=== PATIENT | male | born 1970 | race Caucasian/White ===

== ENCOUNTER 2018-06-11 16:22 | Inpatient (IN) ==
[2018-06-11] MEDS ORDERED: Clindamycin 900 mg/NS Premix 900 MG/50 ML PIGGYBACK IV.SIG ONE (20:53)
--- NOTE | 2018-06-11 20:59 | ED ---
HPI General Chief complaint: Extremity Injury, Lower Stated complaint: Patient states sent from dr Greenfield Seen by Provider: 06/11/18 20:43 Source: patient Limitations: no limitations History of Present Illness HPI narrative: 48-year-old male with history of insulin dependent diabetes here for evaluation of left lower extremity pain and swelling. The patient reports that the symptoms started on and have progressively become worse. States that he was seen here and was started on bactrim. He reports that he was seen by orthopedist Dr. Manoj Swan today who advised that he present to the emergency department again for reevaluation. The patient states that last week he had an ultrasound of his left lower extremity that was negative for DVT. He does report having intermittent fevers and chills with sweats. He denies any specific injury. Pain is described as throbbing, constant, severe, worse with movements and palpation. No history of DVT or PE. Denies illicit drug use. Related Data Home Medications Medication Instructions Recorded Confirmed insulin detemir U-100 [Levemir 25 unit SUBCUT QPM 06/08/18 06/11/18 FlexTouch U-100 Insuln] insulin lispro [Humalog U-100 15 unit SUBCUT TID 06/08/18 06/11/18 Insulin] loratadine [Claritin] 10 mg PO DAILY 06/08/18 06/11/18 naproxen 500 mg PO BID 06/08/18 06/11/18 omeprazole 20 mg PO BID 06/08/18 06/11/18 pregabalin [Lyrica] 200 mg PO TID 06/08/18 06/11/18 Previous Rx's Medication Instructions Recorded methocarbamol [Robaxin] 500 mg PO Q6H PRN #20 tab 06/08/18 Allergies Allergy/AdvReac Type Severity Reaction Status Date / Time gabapentin AdvReac Burning Verified 06/08/18 13:45 Review of Systems ROS: all other systems reviewed are negative PMFSH Surgical History Surgical History H/O hand surgery (Acute) Hx of hand surgery (Acute) Social History Social History Substance History: No History of Abuse Second Hand Smoke Exposure: Yes Smoking Status: Never smoker Tobacco Type: Cigarettes How Often Do You Have a Drink Containing Alcohol: Monthly or less Hx Recent Travel: No Recent Travel in [facility] within the Last 8 Weeks: No Recent Out of Country Travel within the Last 8 Weeks: No Immunization History Tetanus Immunization: <5 Years Exam Narrative Exam Narrative: GENERAL: Well-developed, well-nourished, comfortable, no apparent distress. SKIN: Diffuse edema to the left foot, ankle, and leg. Left foot is cool to touch with the left leg being warmer with overlying warmth and erythema, no crepitus, moderate diffuse tenderness, all compartments are supple. There are a few healing scabs/wounds to bilateral upper and lower extremities. HEAD: Atraumatic. Normocephalic. EYES: Pupils equal and round. No scleral icterus. No injection or drainage. ENT: No nasal bleeding or discharge. Mucous membranes pink and moist. NECK: Trachea midline. No JVD. CARDIOVASCULAR: Regular rate and rhythm. Bilateral dorsalis pedis pulses are brisk and equal. RESPIRATORY: No accessory muscle use. Clear to auscultation. Breath sounds equal bilaterally. GASTROINTESTINAL: Abdomen soft, non-tender, nondistended. MUSCULOSKELETAL: Diffuse edema to the left foot, ankle, and leg. Left foot is cool to touch with the left leg being warmer with overlying warmth and erythema , no crepitus, moderate diffuse tenderness, all compartments are supple. NEUROLOGICAL: Awake and alert. No obvious cranial nerve deficits. Motor grossly within normal limits. Normal speech. PSYCHIATRIC: Appropriate mood and affect; insight and judgment normal. Course Initial Documented Vital Signs Temperature 98.8 F 06/11/18 16:27 Pulse Rate 110 H 06/11/18 16:27 Respiratory Rate 16 06/11/18 16:27 Blood Pressure 193/93 H 06/11/18 16:27 Pulse Oximetry 99 06/11/18 16:27 Last Documented Vital Signs Temperature 97.6 F 06/14/18 04:00 Pulse Rate 92 H 06/14/18 07:16 Respiratory Rate 18 06/14/18 04:00 Blood Pressure 144/62 H 06/14/18 04:00 Pulse Oximetry 97 06/14/18 04:00 Sign Out Sign Out Data: Patient Sign Out occurred on 06/12/18 at 00:19. Patient's care was discussed, and care was transferred from Javad Frye MD to Del Carcamo. Sign Out Comment: Follow-up with CTA runoff, left lower extremity venous duplex , and disposition. Last updated by Javad Frye MD at 06/11/18 23:22 Post-Handoff Eval: CBC showed leukocytosis of 21,000 with a left shift of 84% neutrophilia, no anemia normal platelet count INR within normal limits Lactic acid within normal limits Electrolytes are within normal limits with the exception of a random glucose 258 Normal calcium creatinine and total protein. AST mildly elevated at 49 ALT 31 normal total bilirubin of 0.7 these findings are not severe enough to account for any additional acute testing in the emergency department however patient was made aware of it and advised that he should have does followed up by his primary care. Ultrasound of left lower extremity negative for DVT Currently awaiting CTA runoff as of 23 Patient's left lower extremity has pulses palpated at dorsalis pedis however the patient does have significant difference in coolness of his left foot compared to his right foot. left Tib-fib has erythema and cellulitis-like findings without any palpable crepitus, soft compartments. Primary care is Dr. Little and based on finding will require admission Medical Decision Making MDM Narrative Medical decision making narrative: Vital signs reviewed. CBC is remarkable for leukocytosis of 20. CMP is remarkable for sodium of 130, glucose 258 At approximately 11:00 PM at the end of my shift the patient was signed out to Dr. Carcamo to follow-up with CTA runoff and left lower extremity was duplex and disposition. Medical Screen Exam Complete: Yes Emergency Medical Condition: Yes Differential Diagnosis Differential Diagnosis: Cellulitis, DVT, PVD, Myositis Lab Data Result diagrams: 06/14/18 05:16 06/13/18 03:29 Lab Results 06/11/18 06/11/18 06/11/18 Range/Units 21:00 21:00 21:00 WBC 20.8 H (4.0-11.0) th/mm3 RBC 4.78 (4.50-5.90) mil/mm3 Hgb 13.5 (13.0-17.0) gm/dL Hct 40.5 (39.0-51.0) % MCV 84.8 (80.0-100.0) fL MCH 28.2 (27.0-34.0) pg MCHC 33.2 (32.0-36.0) % RDW 16.4 (11.6-17.2) % Plt Count 404 (150-450) th/mm3 MPV 8.5 (7.0-11.0) fL Prelim Diff (Auto) Neut % (Auto) 83.5 H (16.0-70.0) % Lymph % (Auto) 6.6 L (9.0-44.0) % [place] % (Auto) 8.8 H (0.0-8.0) % Eos % (Auto) 0.6 (0.0-4.0) % Baso % (Auto) 0.5 (0.0-2.0) % Neut # (Auto) 17.4 H (1.8-7.7) th/mm3 Lymph # (Auto) 1.4 (1.0-4.8) th/mm3 [place] # (Auto) 1.8 H (0.0-0.9) th/mm3 Eos # (Auto) 0.1 (0.0-0.4) th/mm3 Baso # (Auto) 0.1 (0.0-0.2) th/mm3 WBC Differential . Seg Neuts % (Manual) (16-70) % Band Neuts % (Manual) (0-6) % Lymphocytes % (Manual) (9-44) % Monocytes % (Manual) (0-8) % Abs Neuts (Manual) (1.8-7.7) th/mm3 Differential Comment Auto diff final Platelet Estimate (Normal) Platelet Morphology (Normal) PT 9.3 L (9.8-11.6) sec INR 0.9 Ratio APTT 33.1 H (23.4-31.7) sec Sodium 130 L (136-145) meq/L Potassium 4.2 (3.5-5.1) meq/L Chloride 94 L (98-107) meq/L Carbon Dioxide 27.6 (21.0-32.0) meq/L Anion Gap 8 (5-15) meq/L BUN 13 (7-18) mg/dL Creatinine 1.22 (0.60-1.30) mg/dL Estimated GFR 64 L (>89) mL/min POC Glucose (68-110) mg/dl Random Glucose 258 H (74-106) mg/dL Hemoglobin A1c (4.3-6.0) % Lactic Acid (0.4-2.0) mmol/L Calcium 9.1 (8.5-10.1) mg/dL Phosphorus (2.5-4.9) mg/dL Magnesium (1.5-2.5) mg/dL Total Bilirubin 0.7 (0.2-1.0) mg/dL AST 49 H (15-37) U/L ALT 31 (12-78) U/L Alkaline Phosphatase 183 H (45-117) U/L Total Protein 7.7 (6.4-8.2) g/dL Albumin 2.7 L (3.4-5.0) g/dL TSH (0.358-3.740) uIU/mL Free T4 (0.76-1.46) ng/dL Vancomycin Trough 06/11/18 06/12/18 06/12/18 Range/Units 21:00 09:40 14:04 WBC (4.0-11.0) th/mm3 RBC (4.50-5.90) mil/mm3 Hgb (13.0-17.0) gm/dL Hct (39.0-51.0) % MCV (80.0-100.0) fL MCH (27.0-34.0) pg MCHC (32.0-36.0) % RDW (11.6-17.2) % Plt Count (150-450) th/mm3 MPV (7.0-11.0) fL Prelim Diff (Auto) Neut % (Auto) (16.0-70.0) % Lymph % (Auto) (9.0-44.0) % [place] % (Auto) (0.0-8.0) % Eos % (Auto) (0.0-4.0) % Baso % (Auto) (0.0-2.0) % Neut # (Auto) (1.8-7.7) th/mm3 Lymph # (Auto) (1.0-4.8) th/mm3 [place] # (Auto) (0.0-0.9) th/mm3 Eos # (Auto) (0.0-0.4) th/mm3 Baso # (Auto) (0.0-0.2) th/mm3 WBC Differential Seg Neuts % (Manual) (16-70) % Band Neuts % (Manual) (0-6) % Lymphocytes % (Manual) (9-44) % Monocytes % (Manual) (0-8) % Abs Neuts (Manual) (1.8-7.7) th/mm3 Differential Comment Platelet Estimate (Normal) Platelet Morphology (Normal) PT (9.8-11.6) sec INR Ratio APTT (23.4-31.7) sec Sodium (136-145) meq/L Potassium (3.5-5.1) meq/L Chloride (98-107) meq/L Carbon Dioxide (21.0-32.0) meq/L Anion Gap (5-15) meq/L BUN (7-18) mg/dL Creatinine (0.60-1.30) mg/dL Estimated GFR (>89) mL/min POC Glucose 314 H 381 H (68-110) mg/dl Random Glucose (74-106) mg/dL Hemoglobin A1c (4.3-6.0) % Lactic Acid 1.1 (0.4-2.0) mmol/L Calcium (8.5-10.1) mg/dL Phosphorus (2.5-4.9) mg/dL Magnesium (1.5-2.5) mg/dL Total Bilirubin (0.2-1.0) mg/dL AST (15-37) U/L ALT (12-78) U/L Alkaline Phosphatase (45-117) U/L Total Protein (6.4-8.2) g/dL Albumin (3.4-5.0) g/dL TSH (0.358-3.740) uIU/mL Free T4 (0.76-1.46) ng/dL Vancomycin Trough 06/12/18 06/12/18 06/12/18 Range/Units 16:46 17:18 17:18 WBC (4.0-11.0) th/mm3 RBC (4.50-5.90) mil/mm3 Hgb (13.0-17.0) gm/dL Hct (39.0-51.0) % MCV (80.0-100.0) fL MCH (27.0-34.0) pg MCHC (32.0-36.0) % RDW (11.6-17.2) % Plt Count (150-450) th/mm3 MPV (7.0-11.0) fL Prelim Diff (Auto) Neut % (Auto) (16.0-70.0) % Lymph % (Auto) (9.0-44.0) % [place] % (Auto) (0.0-8.0) % Eos % (Auto) (0.0-4.0) % Baso % (Auto) (0.0-2.0) % Neut # (Auto) (1.8-7.7) th/mm3 Lymph # (Auto) (1.0-4.8) th/mm3 [place] # (Auto) (0.0-0.9) th/mm3 Eos # (Auto) (0.0-0.4) th/mm3 Baso # (Auto) (0.0-0.2) th/mm3 WBC Differential Seg Neuts % (Manual) (16-70) % Band Neuts % (Manual) (0-6) % Lymphocytes % (Manual) (9-44) % Monocytes % (Manual) (0-8) % Abs Neuts (Manual) (1.8-7.7) th/mm3 Differential Comment Platelet Estimate (Normal) Platelet Morphology (Normal) PT (9.8-11.6) sec INR Ratio APTT (23.4-31.7) sec Sodium (136-145) meq/L Potassium (3.5-5.1) meq/L Chloride (98-107) meq/L Carbon Dioxide (21.0-32.0) meq/L Anion Gap (5-15) meq/L BUN (7-18) mg/dL Creatinine (0.60-1.30) mg/dL Estimated GFR (>89) mL/min POC Glucose 431 H (68-110) mg/dl Random Glucose (74-106) mg/dL Hemoglobin A1c 8.9 H (4.3-6.0) % Lactic Acid (0.4-2.0) mmol/L Calcium (8.5-10.1) mg/dL Phosphorus (2.5-4.9) mg/dL Magnesium (1.5-2.5) mg/dL Total Bilirubin (0.2-1.0) mg/dL AST (15-37) U/L ALT (12-78) U/L Alkaline Phosphatase (45-117) U/L Total Protein (6.4-8.2) g/dL Albumin (3.4-5.0) g/dL TSH (0.358-3.740) uIU/mL Free T4 1.57 H (0.76-1.46) ng/dL Vancomycin Trough 06/12/18 06/12/18 06/13/18 Range/Units 17:18 20:36 03:29 WBC 23.1 H (4.0-11.0) th/mm3 RBC 4.10 L (4.50-5.90) mil/mm3 Hgb 11.7 L (13.0-17.0) gm/dL Hct 34.3 L (39.0-51.0) % MCV 83.8 (80.0-100.0) fL MCH 28.5 (27.0-34.0) pg MCHC 34.1 (32.0-36.0) % RDW 16.5 (11.6-17.2) % Plt Count 417 (150-450) th/mm3 MPV 8.4 (7.0-11.0) fL Prelim Diff (Auto) Slide review pending Neut % (Auto) 83.7 H (16.0-70.0) % Lymph % (Auto) 5.9 L (9.0-44.0) % [place] % (Auto) 9.7 H (0.0-8.0) % Eos % (Auto) 0.1 (0.0-4.0) % Baso % (Auto) 0.6 (0.0-2.0) % Neut # (Auto) 19.3 H (1.8-7.7) th/mm3 Lymph # (Auto) 1.4 (1.0-4.8) th/mm3 [place] # (Auto) 2.2 H (0.0-0.9) th/mm3 Eos # (Auto) 0.0 (0.0-0.4) th/mm3 Baso # (Auto) 0.1 (0.0-0.2) th/mm3 WBC Differential Manual diff final Seg Neuts % (Manual) 75 H (16-70) % Band Neuts % (Manual) 5 (0-6) % Lymphocytes % (Manual) 5 L (9-44) % Monocytes % (Manual) 15 H (0-8) % Abs Neuts (Manual) 18.5 H (1.8-7.7) th/mm3 Differential Comment . Platelet Estimate Normal (Normal) Platelet Morphology Normal (Normal) PT (9.8-11.6) sec INR Ratio APTT (23.4-31.7) sec Sodium (136-145) meq/L Potassium (3.5-5.1) meq/L Chloride (98-107) meq/L Carbon Dioxide (21.0-32.0) meq/L Anion Gap (5-15) meq/L BUN (7-18) mg/dL Creatinine (0.60-1.30) mg/dL Estimated GFR (>89) mL/min POC Glucose 426 H (68-110) mg/dl Random Glucose (74-106) mg/dL Hemoglobin A1c (4.3-6.0) % Lactic Acid (0.4-2.0) mmol/L Calcium (8.5-10.1) mg/dL Phosphorus (2.5-4.9) mg/dL Magnesium (1.5-2.5) mg/dL Total Bilirubin (0.2-1.0) mg/dL AST (15-37) U/L ALT (12-78) U/L Alkaline Phosphatase (45-117) U/L Total Protein (6.4-8.2) g/dL Albumin (3.4-5.0) g/dL TSH 1.440 (0.358-3.740) uIU/mL Free T4 (0.76-1.46) ng/dL Vancomycin Trough 06/13/18 06/13/18 06/13/18 Range/Units 03:29 03:29 07:54 WBC (4.0-11.0) th/mm3 RBC (4.50-5.90) mil/mm3 Hgb (13.0-17.0) gm/dL Hct (39.0-51.0) % MCV (80.0-100.0) fL MCH (27.0-34.0) pg MCHC (32.0-36.0) % RDW (11.6-17.2) % Plt Count (150-450) th/mm3 MPV (7.0-11.0) fL Prelim Diff (Auto) Neut % (Auto) (16.0-70.0) % Lymph % (Auto) (9.0-44.0) % [place] % (Auto) (0.0-8.0) % Eos % (Auto) (0.0-4.0) % Baso % (Auto) (0.0-2.0) % Neut # (Auto) (1.8-7.7) th/mm3 Lymph # (Auto) (1.0-4.8) th/mm3 [place] # (Auto) (0.0-0.9) th/mm3 Eos # (Auto) (0.0-0.4) th/mm3 Baso # (Auto) (0.0-0.2) th/mm3 WBC Differential Seg Neuts % (Manual) (16-70) % Band Neuts % (Manual) (0-6) % Lymphocytes % (Manual) (9-44) % Monocytes % (Manual) (0-8) % Abs Neuts (Manual) (1.8-7.7) th/mm3 Differential Comment Platelet Estimate (Normal) Platelet Morphology (Normal) PT (9.8-11.6) sec INR Ratio APTT (23.4-31.7) sec Sodium 133 L (136-145) meq/L Potassium 4.1 (3.5-5.1) meq/L Chloride 98 (98-107) meq/L Carbon Dioxide 25.1 (21.0-32.0) meq/L Anion Gap 10 (5-15) meq/L BUN 20 H (7-18) mg/dL Creatinine 1.33 H (0.60-1.30) mg/dL Estimated GFR 58 L (>89) mL/min POC Glucose 166 H (68-110) mg/dl Random Glucose 230 H (74-106) mg/dL Hemoglobin A1c (4.3-6.0) % Lactic Acid (0.4-2.0) mmol/L Calcium 8.7 (8.5-10.1) mg/dL Phosphorus 3.0 (2.5-4.9) mg/dL Magnesium 1.8 (1.5-2.5) mg/dL Total Bilirubin 0.6 (0.2-1.0) mg/dL AST 26 (15-37) U/L ALT 20 (12-78) U/L Alkaline Phosphatase 155 H (45-117) U/L Total Protein 6.6 D (6.4-8.2) g/dL Albumin 2.0 L D (3.4-5.0) g/dL TSH (0.358-3.740) uIU/mL Free T4 (0.76-1.46) ng/dL Vancomycin Trough Cancelled 06/13/18 06/13/18 06/13/18 Range/Units 11:51 16:28 20:20 WBC (4.0-11.0) th/mm3 RBC (4.50-5.90) mil/mm3 Hgb (13.0-17.0) gm/dL Hct (39.0-51.0) % MCV (80.0-100.0) fL MCH (27.0-34.0) pg MCHC (32.0-36.0) % RDW (11.6-17.2) % Plt Count (150-450) th/mm3 MPV (7.0-11.0) fL Prelim Diff (Auto) Neut % (Auto) (16.0-70.0) % Lymph % (Auto) (9.0-44.0) % [place] % (Auto) (0.0-8.0) % Eos % (Auto) (0.0-4.0) % Baso % (Auto) (0.0-2.0) % Neut # (Auto) (1.8-7.7) th/mm3 Lymph # (Auto) (1.0-4.8) th/mm3 [place] # (Auto) (0.0-0.9) th/mm3 Eos # (Auto) (0.0-0.4) th/mm3 Baso # (Auto) (0.0-0.2) th/mm3 WBC Differential Seg Neuts % (Manual) (16-70) % Band Neuts % (Manual) (0-6) % Lymphocytes % (Manual) (9-44) % Monocytes % (Manual) (0-8) % Abs Neuts (Manual) (1.8-7.7) th/mm3 Differential Comment Platelet Estimate (Normal) Platelet Morphology (Normal) PT (9.8-11.6) sec INR Ratio APTT (23.4-31.7) sec Sodium (136-145) meq/L Potassium (3.5-5.1) meq/L Chloride (98-107) meq/L Carbon Dioxide (21.0-32.0) meq/L Anion Gap (5-15) meq/L BUN (7-18) mg/dL Creatinine (0.60-1.30) mg/dL Estimated GFR (>89) mL/min POC Glucose 232 H 160 H 333 H (68-110) mg/dl Random Glucose (74-106) mg/dL Hemoglobin A1c (4.3-6.0) % Lactic Acid (0.4-2.0) mmol/L Calcium (8.5-10.1) mg/dL Phosphorus (2.5-4.9) mg/dL Magnesium (1.5-2.5) mg/dL Total Bilirubin (0.2-1.0) mg/dL AST (15-37) U/L ALT (12-78) U/L Alkaline Phosphatase (45-117) U/L Total Protein (6.4-8.2) g/dL Albumin (3.4-5.0) g/dL TSH (0.358-3.740) uIU/mL Free T4 (0.76-1.46) ng/dL Vancomycin Trough 06/14/18 Range/Units 05:16 WBC 16.3 H (4.0-11.0) th/mm3 RBC 3.97 L (4.50-5.90) mil/mm3 Hgb 11.3 L (13.0-17.0) gm/dL Hct 34.0 L (39.0-51.0) % MCV 85.7 (80.0-100.0) fL MCH 28.5 (27.0-34.0) pg MCHC 33.3 (32.0-36.0) % RDW 16.4 (11.6-17.2) % Plt Count 431 (150-450) th/mm3 MPV 8.4 (7.0-11.0) fL Prelim Diff (Auto) Neut % (Auto) 80.9 H (16.0-70.0) % Lymph % (Auto) 9.1 (9.0-44.0) % [place] % (Auto) 8.7 H (0.0-8.0) % Eos % (Auto) 0.7 (0.0-4.0) % Baso % (Auto) 0.6 (0.0-2.0) % Neut # (Auto) 13.2 H (1.8-7.7) th/mm3 Lymph # (Auto) 1.5 (1.0-4.8) th/mm3 [place] # (Auto) 1.4 H (0.0-0.9) th/mm3 Eos # (Auto) 0.1 (0.0-0.4) th/mm3 Baso # (Auto) 0.1 (0.0-0.2) th/mm3 WBC Differential . Seg Neuts % (Manual) (16-70) % Band Neuts % (Manual) (0-6) % Lymphocytes % (Manual) (9-44) % Monocytes % (Manual) (0-8) % Abs Neuts (Manual) (1.8-7.7) th/mm3 Differential Comment Auto diff final Platelet Estimate (Normal) Platelet Morphology (Normal) PT (9.8-11.6) sec INR Ratio APTT (23.4-31.7) sec Sodium (136-145) meq/L Potassium (3.5-5.1) meq/L Chloride (98-107) meq/L Carbon Dioxide (21.0-32.0) meq/L Anion Gap (5-15) meq/L BUN (7-18) mg/dL Creatinine (0.60-1.30) mg/dL Estimated GFR (>89) mL/min POC Glucose (68-110) mg/dl Random Glucose (74-106) mg/dL Hemoglobin A1c (4.3-6.0) % Lactic Acid (0.4-2.0) mmol/L Calcium (8.5-10.1) mg/dL Phosphorus (2.5-4.9) mg/dL Magnesium (1.5-2.5) mg/dL Total Bilirubin (0.2-1.0) mg/dL AST (15-37) U/L ALT (12-78) U/L Alkaline Phosphatase (45-117) U/L Total Protein (6.4-8.2) g/dL Albumin (3.4-5.0) g/dL TSH (0.358-3.740) uIU/mL Free T4 (0.76-1.46) ng/dL Vancomycin Trough Imaging Data Radiologist's impression: Venous Doppler Study 06/11/18 20:53 CONCLUSION: The study is negative for lower extremity deep venous thrombosis. Aorta w/Runoff CTA 06/12/18 00:00 CONCLUSION: 1. No significant aortoiliac inflow stenosis 2. Focal disease at the trifurcation on the left. Otherwise basically normal runoff bilaterally 3. Nonspecific findings of cellulitis, myositis and fasciitis, most significantly involving the left calf Discharge Plan Physicians Team ED Provider: Del Carcamo Primary Care Provider: Jeffy Little Attending Provider: Danny Johnston Other Providers: Pavan Sharpe Rxs /Orders / Referrals /Forms Prescriptions: No Action methocarbamol [Robaxin] 500 mg tablet 500 mg PO Q6H PRN (Reason: muscle spasm) Qty: 20 RF: 0 omeprazole 20 mg Capsule,Delayed Release(Dr/Ec) 20 mg PO BID RF: 0 loratadine [Claritin] 10 mg Tablet 10 mg PO DAILY RF: 0 naproxen 500 mg Tablet 500 mg PO BID RF: 0 insulin lispro [Humalog U-100 Insulin] 100 unit/mL Cartridge 15 unit SUBCUT TID RF: 0 pregabalin [Lyrica] 200 mg Capsule 200 mg PO TID RF: 0 insulin detemir U-100 [Levemir FlexTouch U-100 Insuln] 100 unit/mL (3 mL) Insulin Pen 25 unit SUBCUT QPM RF: 0 Discharge Interventions Interventions: ED Discharge Assessment Last Done: 06/12/18 12:08 Status ED Status: Left Department Discharge Information Discharge Date/Time: 06/12/18 12:09
[2018-06-11] MEDS: Morphine Sulfate Inj 2 MG/ML Vial IV.PUSH ONE ×2 (21:06→21:10)
[2018-06-11 21:27] LABS: Baso # (Auto) 0.1 th/mm3 (0.0-0.2); Baso % (Auto) 0.5 % (0.0-2.0); Eos # (Auto) 0.1 th/mm3 (0.0-0.4); Eos % (Auto) 0.6 % (0.0-4.0); Hematocrit 40.5 % (39.0-51.0); Hemoglobin 13.5 gm/dL (13.0-17.0); Lymph # (Auto) 1.4 th/mm3 (1.0-4.8); Lymph % (Auto) 6.6 % (9.0-44.0); Mean Corpuscular HGB Conc 33.2 % (32.0-36.0); Mean Corpuscular Hemoglobin 28.2 pg (27.0-34.0); Mean Corpuscular Volume 84.8 fL (80.0-100.0); Mean Platelet Volume 8.5 fL (7.0-11.0); Mono # (Auto) 1.8 th/mm3 (0.0-0.9); Mono % (Auto) 8.8 % (0.0-8.0); Neut # (Auto) 17.4 th/mm3 (1.8-7.7); Neut % (Auto) 83.5 % (16.0-70.0); Platelet Count 404 th/mm3 (150-450); Red Blood Count 4.78 mil/mm3 (4.50-5.90); Red Cell Distribution Width 16.4 % (11.6-17.2); White Blood Count 20.8 th/mm3 (4.0-11.0)
[2018-06-11 21:37] LABS: Activated Partial Thrombo Time 33.1 sec (23.4-31.7); INR 0.9 Ratio; Prothrombin Time 9.3 sec (9.8-11.6)
[2018-06-11 21:55] LABS: Albumin 2.7 g/dL (3.4-5.0); Anion Gap 8 meq/L (5-15); Aspartate Aminotransferase 49 U/L (15-37); Blood Urea Nitrogen 13 mg/dL (7-18); Calcium 9.1 mg/dL (8.5-10.1); Carbon Dioxide 27.6 meq/L (21.0-32.0); Chloride 94 meq/L (98-107); Glomerular Filtration Rate 64 mL/min (>89); Glucose,Random 258 mg/dL (74-106); Sodium 130 meq/L (136-145)
[2018-06-11 21:57] LABS: Alanine Aminotransferase 31 U/L (12-78); Alkaline Phosphatase 183 U/L (45-117); Total Protein 7.7 g/dL (6.4-8.2)
[2018-06-11 21:58] LABS: Potassium 4.2 meq/L (3.5-5.1)
[2018-06-11] MEDS ORDERED: oxyCODONE/Acetaminophen 10/325 Tablet PO ONE (22:07)
[2018-06-11] MEDS ORDERED: Sodium Chlor 0.9% Inj 500 ML IV.SIG SCH (23:00)
--- NOTE | 2018-06-12 00:11 | US ---
EXAM DATE: 06/12/2018 12:08 AM EST AGE/SEX: 48 years / Male INDICATIONS: Increasing left leg swelling and redness. CLINICAL DATA: This is the patient's subsequent encounter. Patient reports that signs and symptoms h ave been present for 1 week and indicates a pain score of 6/10. MEDICAL/SURGICAL HISTORY: Diabetes mellitus type I. Gastroesophageal reflux disease. Gout. No ne. COMPARISON: [facility], US LEG VENOUS DOPPLER, LEFT, 06/06/2018. . TECHNIQUE: Venous ultrasound of both lower extremities was performed from the inguinal ligament to t he proximal calf. Real-time, color Doppler and spectral tracing, compression and augmentation techni ques were used. FINDINGS: Normal compression of the deep venous system from the inguinal region to the proximal calf . No echogenic clot is seen. Normal response of the venous system to augmentation and respiration. CONCLUSION: The study is negative for lower extremity deep venous thrombosis. Electronically signed by: Tawanda Workman MD 06/12/2018 12:09 AM EST
--- NOTE | 2018-06-12 02:46 | CT ---
EXAM DATE: 06/12/2018 2:19 AM EST AGE/SEX: 48 years / Male INDICATIONS: Left lower extremity pain, swelling and redness. CLINICAL DATA: This is the patient's initial encounter. Patient reports that signs and symptoms have been present for 1 week and indicates a pain score of 8/10. MEDICAL/SURGICAL HISTORY: Diabetes. Gastroesophageal reflux disease. None. RADIATION DOSE: 10.71 CTDI (mGy) COMPARISON: No prior exams available for comparison. TECHNIQUE: Volumetric scanning was performed using a multi-row detector CT scanner during bolus infu erika of 100 ml Omnipaque 350 (iohexol) nonionic water-soluble contrast as a single exam dose. The data was post processed with a variety of visualization algorithms including full volume maximum inte nsity projection, multi-planar sliding thin slab reformation, curved planar reformation, and surface rendering techniques. Using automated exposure control and adjustment of the mA and/or kV according to patient size, radiation dose was kept as low as reasonably achievable to obtain optimal diagnostic quality images. DICOM format image data is available electronically for review and comparison. FINDINGS: The abdominal aorta is notable for patchy mild atheromatous irregularity without significant stenosis . No aneurysm or dissection. Looking at the aortic visceral vessels, left gastric artery arises as a separate branch adjacent to the celiac trunk is widely patent. The superior mesenteric artery is wide ly patent with incidental note of replaced right hepatic artery. Renal arteries are widely patent inc luding an accessory right renal artery. The WENDY is patent. In the pelvis, the iliacs are widely paten t. Hypogastrics are patent bilaterally. There is mild eccentric soft plaque involving the left common femoral artery. The profundas are patent bilaterally In the legs, the superficial femoral arteries and popliteal arteries are satisfactory in appearance b ilaterally. On the left, there is some focal disease at the trifurcation however all 3 tibial vessels are subsequently patent to the foot. Basically normal three-vessel calf runoff is present on the rig ht. There is diffuse soft tissue edema involving the subcutaneous tissues of the left leg from the level of the mid thigh down. There is low density involving portions of the proximal left calf musculature and some fluid interposed between the soleus and gastrocnemius. There is a small joint effusion at th e knee. CONCLUSION: 1. No significant aortoiliac inflow stenosis 2. Focal disease at the trifurcation on the left. Otherwise basically normal runoff bilaterally 3. Nonspecific findings of cellulitis, myositis and fasciitis, most significantly involving the left calf Electronically signed by: Tawanda Workman MD 06/12/2018 2:45 AM EST
[2018-06-12] MEDS ORDERED: Vancomycin Consult Pharmacy OTHER PRN (03:52)
[2018-06-12] MEDS ORDERED: Dextrose 50% in Water 50 ML Vial IV.PUSH PRN (03:55)
[2018-06-12] MEDS ORDERED: Bisacodyl 10 MG Supp RECTAL PRN (03:56)
[2018-06-12] MEDS ORDERED: Sodium Chloride 0.9% 2 ML Flush PRN IV.FLUSH (04:10)
[2018-06-12] MEDS ORDERED: Vancomycin Inj 1,500 MG in Sodium Chlor 0.9% Inj 500 ML IV.SIG ONE (05:00)
[2018-06-12] MEDS: Sod Chloride 0.9% Inj 1,000 ML IV.CONT SCH ×2 (05:46→20:04)
[2018-06-12] MEDS: Clindamycin 900 mg/NS Premix 900 MG/50 ML PIGGYBACK IV.SIG SCH ×3 (06:28→23:36)
--- NOTE | 2018-06-12 07:20 | P.CONOP ---
[facility] Orthopedics Consult Note - [facility] Consult date: 06/12/18 Chief complaint: LLL Cellulitis r/o Myositis vs Fasciitis Narrative: Floyd is a 48-year-old male. He has a history of type 1 diabetes. He complains of left leg and calf pain and swelling for approximately 1 week. He has had fevers and chills. He has also had night sweats. Pain is worse with walking or weightbearing. He has significant tenderness of his calf. He had an ultrasound of his leg which is negative for DVT. He saw Dr. Manoj Gonzalez in clinic yesterday who referred him to the emergency room for further evaluation. He had CT of his leg yesterday which showed fluid collection in the left calf. He is currently awake alert in the emergency department. His only complaint is his left calf. Pain is improved with rest. Pain is been progressively worsening over the past week. Pain is severe and intense with motion. He denies any history of drug use. Review of Systems Patient denies weight loss, headache, visual changes, hearing loss, chest pain , palpitations, shortness of breath, nausea, vomiting, no urinary changes, diarrhea, bowel changes, neck pain, back pain, skin rashes, weakness of extremities, easy bleeding, enlarged lymph nodes, numbness of extremities, anxiety, or depression. He complains of fevers, chills, sweats, and left calf pain Patient's social history, past medical history, and family history were reviewed on chart and with patient. [facility] - History History Provided By: Patient - Medical History Medical History: Medical History (Last Reviewed 06/12/18 @ 07:17 by Pavan Sharpe MD) Diabetes GERD (gastroesophageal reflux disease) Gout - Family History Family History: Family History (Last Updated 06/12/18 @ 07:17 by Pavan Sharpe MD) Other Family history of diabetes mellitus - Social History I have reviewed the patient's Social History: Yes - Tobacco History Second Hand Smoke Exposure: Yes Smoking Status: Never smoker Tobacco Type: Cigarettes - Alcohol History How Often Do You Have a Drink Containing Alcohol: Monthly or less - Substance Use History Substance History: No History of Abuse - Travel History Recent Travel in the [place] Within the Last 8 Weeks: No Recent Travel Out of the Country Within the Last 8 Weeks: No - Immunization History Tetanus Immunization: <5 Years Medications and Allergies Active Medications: Active Medications Al Hydroxide/Mg Hydroxide (Milk Of Magnesia Liq) 30 ml PO Q12H PRN PRN Reason: Mild Constipation Bisacodyl (Dulcolax Supp) 10 mg RECTAL DAILY PRN PRN Reason: SEVERE CONSITIPATION Dextrose (D50w Vial) 50 ml IV.PUSH UNSCH PRN PRN Reason: PER HYPOGLYCEMIA PROTOCOL Glucagon (Glucagon Inj) 1 mg OTHER PRN PRN PRN Reason: for Hypoglycemia Protocol Clindamycin/Sodium Chloride (Cleocin 900 Mg/Ns Premix) 900 mg in 50 mls @ 100 mls/hr IV.SIG Q8H [facility] Last Infusion: 06/12/18 06:35 Dose: Infused Cefepime HCl 2,000 mg/ Sodium (Chloride) 100 mls @ 200 mls/hr IV.SIG Q8H [facility] Last Infusion: 06/12/18 06:17 Dose: Infused Sodium Chloride (Ns Inj) 1,000 mls @ 100 mls/hr IV.CONT .Q10H [facility] Last Admin: 06/12/18 05:46 Dose: 100 mls/hr Insulin Aspart (Novolog Insulin Correctional Sugar Inj) 0 unit SQ ACHS [facility]; Protocol Lactulose (Lactulose Liq) 30 ml PO DAILY PRN PRN Reason: SEVERE CONSITIPATION Pharmacy Profile Note (Vancomycin Consult Pharmacy) 1 each OTHER UNSCH PRN PRN Reason: Pharmacy to dose Sennosides (Senokot) 17.2 mg PO Q12H PRN PRN Reason: Moderate Constipation Sodium Chloride (Ns Flush) 2 ml IV.FLUSH BID [facility] Sodium Chloride (Ns Flush) 2 ml IV.FLUSH PRN PRN PRN Reason: FLUSH AFTER USING IV ACCESS Allergies Allergy/AdvReac Type Severity Reaction Status Date / Time gabapentin AdvReac Burning Verified 06/08/18 13:45 Home Medications Medication Instructions Recorded Confirmed Type insulin detemir U-100 [Levemir 25 unit SUBCUT QPM 06/08/18 06/11/18 History FlexTouch U-100 Insuln] insulin lispro [Humalog U-100 15 unit SUBCUT TID 06/08/18 06/11/18 History Insulin] loratadine [Claritin] 10 mg PO DAILY 06/08/18 06/11/18 History naproxen 500 mg PO BID 06/08/18 06/11/18 History omeprazole 20 mg PO BID 06/08/18 06/11/18 History pregabalin [Lyrica] 200 mg PO TID 06/08/18 06/11/18 History Exam Vital signs: Vital Signs 06/11/18 16:27 06/11/18 20:56 06/11/18 23:09 Temperature 98.8 F 98.6 F Pulse Rate 110 H 88 Respiratory Rate 16 18 20 Blood Pressure 193/93 H 179/88 H Pulse Oximetry 99 99 06/12/18 00:00 06/12/18 04:00 06/12/18 06:32 Temperature Pulse Rate 87 88 96 H Respiratory Rate 20 20 20 Blood Pressure 176/80 H 132/75 143/67 H Pulse Oximetry 98 98 96 Intake & Output 06/11/18 06/12/18 06/12/18 18:59 06:59 18:59 Intake Total 700 / 700 Output Total 300 / 300 Balance 400 / 400 Weight 95.254 kg Intake: IV 700 / 700 Maxipime Inj 2,000 MG In NS Inj 100 / 100 100 ML @ 200 mls/hr IV.SIG Q8H [facility] Rx#:[id number] Cleocin 900 mg/NS Premix 900 mg 100 / 100 In 50 ml @ 100 mls/hr IV.SIG Q8H [facility] Rx#:[id number] NS Inj 500 ML @ 1000 mls/hr IV. 500 / 500 SIG BOLUS [facility] Rx#:[id number] Output: Urine 300 / 300 Narrative: Floyd is a 48-year-old male. General: Awake and alert. No acute distress. Appears well-developed well- nourished Head: Normocephalic, atraumatic pupils are equal Neck: Soft, nontender, trachea midline Abdomen: Soft, nondistended Examination of right arm reveals no pain or deformity with shoulder, elbow, or wrist motion. Skin is intact. Radial pulse is palpable. Normal capillary refill in fingers. Sensation is intact in radial, ulnar, and median nerve distributions. Electrotype Servicer strength is +5. No lymphadenopathy noted. Examination of left arm reveals no pain or deformity with shoulder, elbow, or wrist motion. Skin is intact. Radial pulse is palpable. Normal capillary refill in fingers. Sensation is intact in radial, ulnar, and median nerve distributions. Electrotype Servicer strength is +5. No lymphadenopathy noted. Examination of left lower extremity reveals no pain or deformity with hip motion. He has mild calf pain with knee or ankle motion. He is very tender to palpation over the left calf. There is some cellulitis over the calf. There is swelling of the calf. Skin is intact. Sensation is intact in left foot. Dorsalis pedis pulse is palpable. Normal capillary refill and feet. Thigh and calf compartments are soft. No lymphadenopathy noted. Examination of right lower extremity reveals no pain or deformity with hip, knee , or ankle motion. Skin is intact. Sensation is intact in right foot. Dorsalis pedis pulse is palpable. Normal capillary refill and feet. Thigh and calf compartments are soft. No lymphadenopathy noted. +5 strength of ankle dorsiflexion and plantarflexion. Results - Labs Result Diagrams: 06/11/18 21:00 06/11/18 21:00 Labs: Laboratory Results - last 24 hr 06/11/18 06/11/18 06/11/18 21:00 21:00 21:00 WBC 20.8 H RBC 4.78 Hgb 13.5 Hct 40.5 MCV 84.8 MCH 28.2 MCHC 33.2 RDW 16.4 Plt Count 404 MPV 8.5 Neut % (Auto) 83.5 H Lymph % (Auto) 6.6 L [place] % (Auto) 8.8 H Eos % (Auto) 0.6 Baso % (Auto) 0.5 Neut # (Auto) 17.4 H Lymph # (Auto) 1.4 [place] # (Auto) 1.8 H Eos # (Auto) 0.1 Baso # (Auto) 0.1 WBC Differential . Differential Comment Auto diff final PT 9.3 L INR 0.9 APTT 33.1 H Sodium 130 L Potassium 4.2 Chloride 94 L Carbon Dioxide 27.6 Anion Gap 8 BUN 13 Creatinine 1.22 Estimated GFR 64 L Random Glucose 258 H Lactic Acid Calcium 9.1 Total Bilirubin 0.7 AST 49 H ALT 31 Alkaline Phosphatase 183 H Total Protein 7.7 Albumin 2.7 L 06/11/18 21:00 WBC RBC Hgb Hct MCV MCH MCHC RDW Plt Count MPV Neut % (Auto) Lymph % (Auto) [place] % (Auto) Eos % (Auto) Baso % (Auto) Neut # (Auto) Lymph # (Auto) [place] # (Auto) Eos # (Auto) Baso # (Auto) WBC Differential Differential Comment PT INR APTT Sodium Potassium Chloride Carbon Dioxide Anion Gap BUN Creatinine Estimated GFR Random Glucose Lactic Acid 1.1 Calcium Total Bilirubin AST ALT Alkaline Phosphatase Total Protein Albumin - Diagnostic results Imaging: Impressions Venous Doppler Study 06/11/18 20:53 CONCLUSION: The study is negative for lower extremity deep venous thrombosis. Aorta w/Runoff CTA 06/12/18 00:00 CONCLUSION: 1. No significant aortoiliac inflow stenosis 2. Focal disease at the trifurcation on the left. Otherwise basically normal runoff bilaterally 3. Nonspecific findings of cellulitis, myositis and fasciitis, most significantly involving the left calf Assessment and Plan - Assessment and Plan Floyd appears to have an abscess of his left calf. CT scan was reviewed. There appears to be fluid between the gastroc muscle and soleus muscle of the left calf. Given his history of fevers and chills I would recommend surgical irrigation and debridement of left calf. Cultures will be obtained. The risk and benefits of surgery were discussed in depth with patient. All questions were answered. I will plan on surgery today. The risk and benefits of surgery were discussed in depth with patient. The risk of surgery include bleeding, infection, injuries to arteries, nerves, or blood vessels, infection, wound complications, and need for further surgery. I also discussed medical complications including blood clots, pneumonia, stroke, heart attack, and . Informed consent was obtained and all questions were answered. N.p.o.--plan on surgery this afternoon (may have clear liquids until 10 AM) Physical therapy consult--weight-bear as tolerated Follow-up with Dr. Sharpe in 2 weeks [facility] A mid-level provider in my office (nurse practitioner or physician retail store assistant) may see this patient on follow-up visits and continue to implement the objectives of this plan including: Starting or adjusting medications, injections , cast application, orthotics, brace application, physical therapy, radiological studies (including x-ray, MRI, CT, ultrasound, bone scan), vascular studies, neurologic studies, specialist consultation, and proceeding with surgical management, as appropriate.
[2018-06-12] MEDS ORDERED: Sodium Chloride 0.9% 2 ML Flush BID IV.FLUSH SCH (09:00)
[2018-06-12] MEDS ORDERED: Morphine Sulfate Inj 2 MG/ML Vial IV.PUSH PRN (09:02)
[2018-06-12] MEDS ORDERED: Acetaminophen 325 MG Tablet PO PRN (09:02)
[2018-06-12] MEDS: Insulin NovoLOG Aspart Correctional Sugar Inj SQ SCH ×4 (10:17→20:44)
--- NOTE | 2018-06-12 11:16 | P.HPIM ---
History of Present Illness Service: [facility] Primary Care Physician: Jeffy Little MD Chief Complaint: Left leg pain and swelling History of Present Illness: Patient is a 48-year-old male with a past medical history of insulin- dependent diabetes who came into the emergency department for evaluation of a left lower extremity pain and swelling. Patient reports that the symptoms started on August 06, 2018 have progressively worsened. States that he was seen here and was started on Bactrim. He is dates that he was seen by his orthopedic surgeon Dr. Manoj Winkler yesterday who advised patient come to emergency department for reevaluation. The patient states that last week he had an ultrasound of the left lower extremity negative for DVT. Does report having intermittent fevers and chills with sweats. Denies any specific injury. Patient describes the pain as throbbing and constant and severe worse with movements and bowel patient denies any history of DVT or pulmonary embolism denies any history. Past medical history is significant for diabetes mellitus as well as seasonal allergies and GERD and neuropathy and history of gout Patient is scheduled to go for surgery regarding the left lower extremity abscess in the calf region Inpatient Certification: I certify that the inpatient services were ordered in accordance with Medicare regulations governing the order. This includes certification that hospital inpatient services are reasonable and necessary and in the case of services not specified as inpatient-only under 42 CFR 419.22(n), that they are appropriately provided as inpatient services in accordance to with the 2-midnight benchmark under 43 CFR 412.3(e) Estimated Total Length of Stay (Days): 3 Plans for Post Hospital Care: Not yet determined Review of Systems All other systems reviewed negative except as stated in HPI [facility] - History History Provided By: Patient - Medical History Medical History: Medical History (Last Reviewed 06/12/18 @ 11:05 by Nacho Bhat DO) Diabetes GERD (gastroesophageal reflux disease) Gout - Surgical History Surgical History: Surgical History (Last Updated 06/12/18 @ 11:05 by Nacho Bhat DO) H/O hand surgery Hx of hand surgery - Family History Family History: Family History (Last Reviewed 06/12/18 @ 11:05 by Nacho Bhat DO) Other Family history of diabetes mellitus - Social History I have reviewed the patient's Social History: Yes - Tobacco History Second Hand Smoke Exposure: Yes Tobacco Use In Past 30 Days: Yes Smoking Status: Never smoker Tobacco Type: Cigarettes - Alcohol History How Often Do You Have a Drink Containing Alcohol: Monthly or less - Substance Use History Substance History: No History of Abuse - Travel History History of Recent Travel: No Recent Travel in the [place] Within the Last 8 Weeks: No Recent Travel Out of the Country Within the Last 8 Weeks: No - Immunization History Tetanus Immunization: <5 Years Medications and Allergies Active Medications: Active Medications Acetaminophen (Tylenol) 650 mg PO Q6H PRN PRN Reason: PAIN SCALE 1 TO 10 Al Hydroxide/Mg Hydroxide (Milk Of Magnesia Liq) 30 ml PO Q12H PRN PRN Reason: Mild Constipation Bisacodyl (Dulcolax Supp) 10 mg RECTAL DAILY PRN PRN Reason: SEVERE CONSITIPATION Dextrose (D50w Vial) 50 ml IV.PUSH UNSCH PRN PRN Reason: PER HYPOGLYCEMIA PROTOCOL Glucagon (Glucagon Inj) 1 mg OTHER PRN PRN PRN Reason: for Hypoglycemia Protocol Clindamycin/Sodium Chloride (Cleocin 900 Mg/Ns Premix) 900 mg in 50 mls @ 100 mls/hr IV.SIG Q8H [facility] Last Infusion: 06/12/18 06:35 Dose: Infused Cefepime HCl 2,000 mg/ Sodium (Chloride) 100 mls @ 200 mls/hr IV.SIG Q8H [facility] Last Infusion: 06/12/18 06:17 Dose: Infused Sodium Chloride (Ns Inj) 1,000 mls @ 100 mls/hr IV.CONT .Q10H [facility] Last Admin: 06/12/18 05:46 Dose: 100 mls/hr Vancomycin HCl 1,500 mg/ (Sodium Chloride) 515 mls @ 250 mls/hr IV.SIG Q12H [facility] Insulin Aspart (Novolog Insulin Correctional Sugar Inj) 0 unit SQ ACHS [facility]; Protocol Last Admin: 06/12/18 10:17 Dose: Not Given Lactulose (Lactulose Liq) 30 ml PO DAILY PRN PRN Reason: SEVERE CONSITIPATION Miscellaneous Information ([facility] Ordered Lab Info) 0 each OTHER ONCE ONE Stop: 06/13/18 17:46 Morphine Sulfate (Morphine Inj) 2 mg IV.PUSH Q4H PRN PRN Reason: BREAKTHROUGH PAIN Pharmacy Profile Note (Vancomycin Consult Pharmacy) 1 each OTHER UNSCH PRN PRN Reason: Pharmacy to dose Sennosides (Senokot) 17.2 mg PO Q12H PRN PRN Reason: Moderate Constipation Sodium Chloride (Ns Flush) 2 ml IV.FLUSH BID [facility] Last Admin: 06/12/18 09:32 Dose: Not Given Sodium Chloride (Ns Flush) 2 ml IV.FLUSH PRN PRN PRN Reason: FLUSH AFTER USING IV ACCESS Allergies Allergy/AdvReac Type Severity Reaction Status Date / Time gabapentin AdvReac Burning Verified 06/08/18 13:45 Home Medications Medication Instructions Recorded Confirmed Type insulin detemir U-100 [Levemir 25 unit SUBCUT QPM 06/08/18 06/11/18 History FlexTouch U-100 Insuln] insulin lispro [Humalog U-100 15 unit SUBCUT TID 06/08/18 06/11/18 History Insulin] loratadine [Claritin] 10 mg PO DAILY 06/08/18 06/11/18 History naproxen 500 mg PO BID 06/08/18 06/11/18 History omeprazole 20 mg PO BID 06/08/18 06/11/18 History pregabalin [Lyrica] 200 mg PO TID 06/08/18 06/11/18 History Exam Vital signs: Vital Signs 06/11/18 16:27 06/11/18 20:56 06/11/18 23:09 Temperature 98.8 F 98.6 F Pulse Rate 110 H 88 Respiratory Rate 16 18 20 Blood Pressure 193/93 H 179/88 H Pulse Oximetry 99 99 06/12/18 00:00 06/12/18 04:00 06/12/18 06:32 Temperature Pulse Rate 87 88 96 H Respiratory Rate 20 20 20 Blood Pressure 176/80 H 132/75 143/67 H Pulse Oximetry 98 98 96 Intake & Output 06/11/18 06/12/18 06/12/18 18:59 06:59 18:59 Intake Total 700 / 700 765 / 765 Output Total 300 / 300 Balance 400 / 400 765 / 765 Weight 95.254 kg Intake: IV 700 / 700 765 / 765 Maxipime Inj 2,000 MG In NS Inj 100 / 100 100 ML @ 200 mls/hr IV.SIG Q8H [facility] Rx#:[id number] Cleocin 900 mg/NS Premix 900 mg 100 / 100 In 50 ml @ 100 mls/hr IV.SIG Q8H [facility] Rx#:[id number] NS Inj 500 ML @ 1000 mls/hr IV. 500 / 500 SIG BOLUS [facility] Rx#:[id number] Vancomycin Inj 1,500 MG In NS 765 / 765 Inj 500 ML @ 250 mls/hr IV.SIG ONCE ONE Rx#:[id number] Output: Urine 300 / 300 Narrative: Exam Narrative: GENERAL: Well-developed, well-nourished, comfortable, in mild to moderate distress. SKIN: Diffuse edema to the left foot, ankle, and leg. Left foot is cool to touch with the left leg being warmer with overlying warmth and erythema, no crepitus, moderate diffuse tenderness, all compartments are supple. There are a few healing scabs/wounds to bilateral upper and lower extremities. HEAD: Atraumatic. Normocephalic. EYES: Pupils equal and round. No scleral icterus. No injection or drainage. EOMI ENT: No nasal bleeding or discharge. Mucous membranes pink and moist. Tongue is midline NECK: Trachea midline. No JVD. Supple CARDIOVASCULAR: Regular rate and rhythm. Bilateral dorsalis pedis pulses are brisk and equal. S1-S2 no S3 or S4 RESPIRATORY: No accessory muscle use. Clear to auscultation. Breath sounds equal bilaterally. No rhonchi wheezes rales GASTROINTESTINAL: Abdomen soft, non-tender, nondistended. MUSCULOSKELETAL: Diffuse edema to the left foot, ankle, and leg. Left foot is cool to touch with the left leg being warmer with overlying warmth and erythema , no crepitus, moderate diffuse tenderness, all compartments are supple. Tenderness on any touch of the left lower extremity especially the calf region NEUROLOGICAL: Awake and alert. No obvious cranial nerve deficits. Motor grossly within normal limits. Normal speech. PSYCHIATRIC: INAppropriate mood and affect; insight and judgment ABnormal. Results - Labs CBC & Chem 7: 06/11/18 21:00 06/11/18 21:00 Labs: Short CBC 06/11/18 Range/Units 21:00 WBC 20.8 H (4.0-11.0) th/mm3 Hgb 13.5 (13.0-17.0) gm/dL Hct 40.5 (39.0-51.0) % Plt Count 404 (150-450) th/mm3 [facility] 06/11/18 21:00 Sodium 130 L Potassium 4.2 Chloride 94 L Carbon Dioxide 27.6 BUN 13 Creatinine 1.22 Calcium 9.1 Liver Function 06/11/18 Range/Units 21:00 Total Bilirubin 0.7 (0.2-1.0) mg/dL AST 49 H (15-37) U/L ALT 31 (12-78) U/L Alkaline Phosphatase 183 H (45-117) U/L Albumin 2.7 L (3.4-5.0) g/dL - Imaging Impressions Venous Doppler Study 06/11/18 20:53 CONCLUSION: The study is negative for lower extremity deep venous thrombosis. Aorta w/Runoff CTA 06/12/18 00:00 CONCLUSION: 1. No significant aortoiliac inflow stenosis 2. Focal disease at the trifurcation on the left. Otherwise basically normal runoff bilaterally 3. Nonspecific findings of cellulitis, myositis and fasciitis, most significantly involving the left calf Caprini VTE Risk Assessment Caprini VTE Risk Assessment: Moderate/High Risk (score >= 2) Caprini Risk Assessment Model: Point Value = 1 Point Value = 2 Point Value = 3 Point Value = 5 Age 41-60 Minor surgery BMI > 25 kg/m2 Swollen legs Varicose veins or History of unexplained or recurrent spontaneous Oral contraceptives or hormone replacement Sepsis (< 1 month) Serious lung disease, including pneumonia (< 1 month) Abnormal pulmonary function Acute myocardial infarction Congestive heart failure (< 1 month) History of inflammatory bowel disease Medical patient at bed rest Age 61-74 Arthroscopic surgery Major open surgery (> 45 min) Laparoscopic surgery (> 45 min) Malignancy Confined to bed (> 72 hours) Immobilizing plaster cast Central venous access Age >= 75 History of VTE Family history of VTE Factor V Leiden Prothrombin [id number] Lupus anticoagulant Anticardiolipin antibodies Elevated serum homocysteine Heparin-induced thrombocytopenia Other congenital or acquired thrombophilia Stroke (< 1 month) Elective arthroplasty Hip, pelvis, or leg fracture Acute spinal cord injury (< 1 month) Prophylaxis Regimen: Total Risk Factor Score Risk Level Prophylaxis Regimen 0-1 Low Early ambulation 2 Moderate Order ONE of the following: *Sequential Compression Device (SCD) *Heparin 5000 units SQ BID 3-4 Higher Order ONE of the following medications: *Heparin 5000 units SQ TID *Enoxaparin/Lovenox 40 mg SQ daily (WT < 150 kg, CrCl > 30 mL/min) *Enoxaparin/Lovenox 30 mg SQ daily (WT < 150 kg, CrCl > 10-29 mL/min) *Enoxaparin/Lovenox 30 mg SQ BID (WT < 150 kg, CrCl > 30 mL/min) AND/OR *Sequential Compression Device (SCD) 5 or more Highest Order ONE of the following medications: *Heparin 5000 units SQ TID (Preferred with Epidurals) *Enoxaparin/Lovenox 40 mg SQ daily (WT < 150 kg, CrCl > 30 mL/min) *Enoxaparin/Lovenox 30 mg SQ daily (WT < 150 kg, CrCl > 10-29 mL/min) *Enoxaparin/Lovenox 30 mg SQ BID (WT < 150 kg, CrCl > 30 mL/min) AND *Sequential Compression Device (SCD) Assessment and Plan - Plan Left lower extremity cellulitis rule out myositis versus fasciitis of left calf Abscess left calf-fluid between the gastric muscle and the soleus muscle on the left calf Fevers per patient has an outpatient- continue on antibiotics -To go for surgery today with Dr. Lagunas pain control for calf tenderness -Currently on Cleocin and cefepime and vancomycin Hyponatremia-monitor daily labs Renal insufficiency monitor daily labs continue fluids Leukocytosis currently on Cleocin and vancomycin -To go for surgery later today with Dr. Lagunas Diabetes mellitus -Sliding scale coverage Accu-Cheks before meals and at bedtime -Check a hemoglobin A1c -Resume home medications once able to eat currently is n.p.o. GERD resume PPI Neuropathy resume home medications continue on Lyrica Gout pain control as needed Seasonal allergies continue on Claritin DVT prophylaxis on hold until after surgery A.m. labs Pain control Code Status: Full code Discussed Condition With: RN and patient Discharge Planning: Once cleared by orthopedic surgery and the areas drained and improvement Will need cultures of the wound
[2018-06-12] MEDS ORDERED: ceFAZolin 2 GM Premix Inj 0 GM/0 ML PIGGYBACK IV.SIG ONE (12:41)
[2018-06-12] MEDS ORDERED: Lidocaine PF 1% Inj 5 ML Syringe OTHER ONE (12:45)
[2018-06-12] MEDS ORDERED: Post-op Orders (for Pharmacy) OTHER STA (13:33)
[2018-06-12] MEDS ORDERED: Morphine Inj 4 MG/ML Vial IV.PUSH PRN (13:33)
--- NOTE | 2018-06-12 13:39 | P.OP ---
- Preoperative Diagnosis (1) Abscess of left lower extremity Date of procedure: 06/12/18 Procedure: Left calf abscess irrigation and debridement Anesthesia: GETA Surgeon: Pavan Sharpe MD Sales Coach: Fabricio Willett PA-C The surgical procedure was assisted by my physician licensed occupational therapy assistant. My P.A. presence was necessary throughout this case for the manipulation and positioning of the surgical extremity. My P.A. was assisting me throughout the duration of this procedure. The skill set of a physician licensed occupational therapy assistant was medically necessary to complete this procedure. During the surgical case the surgical clinical reviewer was working at the back table and the physician licensed occupational therapy assistant was directly assisting me. Operation and Findings: Patient was seen and evaluated preoperatively. Patient was found to have infection of the left lower extremity. CT scan revealed a fluid collection deep to the gastrocnemius muscle. He has had a one-week history of increasing pain and swelling. Swelling and erythema were noted. Informed consent was obtained after detailed discussion of risk and benefits of surgery. Operative site was marked. Patient was brought to the operating room. IV sedation and GETA were administered by anesthesiologist. Operative leg was prepped with alcohol followed by Hibiclens and draped in usual sterile fashion. Timeout procedure was performed. Procedure began with a 3 inch incision over the medial calf. Subcutaneous tissue dissected with Bovie. The interval between the gastrocnemius and soleus muscles was identified. This muscle interval was opened. A large volume of purulent fluid was found within the knee. Specimen was obtained for cultures and sensitivities. Loculations were manually debrided. An excisional debridement was performed. After excisional debridement was complete, the wound was thoroughly irrigated with sterile saline. At this point the wound was clean. Subcutaneous tissues closed with 3-0 PDS and skin was closed with dorene. A REGINALD drain was placed into the wound. Sterile dressings were applied. Patient was awakened and transferred to recovery in stable condition. Needle and sponge counts were correct
[2018-06-12] MEDS ORDERED: *morphine SULFATE 10 MG/ML PERIprocedure ONLY ONE (14:08)
[2018-06-12] MEDS ORDERED: *Meperidine Inj 25 MG/ML Vial PERIprocedural Use ONLY ONE (14:08)
[2018-06-12] MEDS ORDERED: fentaNYL Citrate Inj 100 MCG/2 ML Ampul ONE (14:13)
[2018-06-12] MEDS ORDERED: Methocarbamol 500 MG Tablet PO PRN (16:47)
[2018-06-12] MEDS: Vancomycin Inj 1,500 MG in Sodium Chlor 0.9% Inj 500 ML IV.SIG SCH (20:05)
[2018-06-12 20:14] LABS: Hemoglobin A1c 8.9 % (4.3-6.0)
[2018-06-12] MEDS: Senna/Docusate Sodium 8.6/50 MG Tablet PO SCH (20:37)
[2018-06-12] MEDS: Pantoprazole Sodium 20 MG DR Tablet PO SCH (20:37)
[2018-06-12] MEDS: Insulin Detemir Inj 1,000 UNIT/10 ML Vial SQ SCH (20:45)
[2018-06-13] MEDS: Sod Chloride 0.9% Inj 1,000 ML IV.CONT SCH ×2 (01:38→11:39)
[2018-06-13 05:10] LABS: Baso # (Auto) 0.1 th/mm3 (0.0-0.2); Baso % (Auto) 0.6 % (0.0-2.0); Eos % (Auto) 0.1 % (0.0-4.0); Hematocrit 34.3 % (39.0-51.0); Hemoglobin 11.7 gm/dL (13.0-17.0); Lymph # (Auto) 1.4 th/mm3 (1.0-4.8); Lymph % (Auto) 5.9 % (9.0-44.0); Mean Corpuscular HGB Conc 34.1 % (32.0-36.0); Mean Corpuscular Hemoglobin 28.5 pg (27.0-34.0); Mean Corpuscular Volume 83.8 fL (80.0-100.0); Mean Platelet Volume 8.4 fL (7.0-11.0); Mono # (Auto) 2.2 th/mm3 (0.0-0.9); Mono % (Auto) 9.7 % (0.0-8.0); Neut # (Auto) 19.3 th/mm3 (1.8-7.7); Neut % (Auto) 83.7 % (16.0-70.0); Platelet Count 417 th/mm3 (150-450); Red Cell Distribution Width 16.5 % (11.6-17.2); White Blood Count 23.1 th/mm3 (4.0-11.0)
[2018-06-13] MEDS: Clindamycin 900 mg/NS Premix 900 MG/50 ML PIGGYBACK IV.SIG SCH ×3 (05:38→22:29)
[2018-06-13 05:43] LABS: Alanine Aminotransferase 20 U/L (12-78); Alkaline Phosphatase 155 U/L (45-117); Anion Gap 10 meq/L (5-15); Aspartate Aminotransferase 26 U/L (15-37); Blood Urea Nitrogen 20 mg/dL (7-18); Calcium 8.7 mg/dL (8.5-10.1); Carbon Dioxide 25.1 meq/L (21.0-32.0); Chloride 98 meq/L (98-107); Glomerular Filtration Rate 58 mL/min (>89); Glucose,Random 230 mg/dL (74-106); Potassium 4.1 meq/L (3.5-5.1); Sodium 133 meq/L (136-145); Total Protein 6.6 g/dL (6.4-8.2)
[2018-06-13] MEDS: Vancomycin Inj 1,500 MG in Sodium Chlor 0.9% Inj 500 ML IV.SIG SCH ×2 (05:50→17:41)
[2018-06-13 07:24] LABS: Lymphocytes 5 % (9-44); Monocytes 15 % (0-8); Platelet Estimate Normal (Normal); Platelet Morphology Normal (Normal)
[2018-06-13] MEDS: Pantoprazole Sodium 20 MG DR Tablet PO SCH ×2 (07:59→21:14)
[2018-06-13] MEDS: Loratadine 10 MG Tablet PO SCH (07:59)
[2018-06-13] MEDS: Senna/Docusate Sodium 8.6/50 MG Tablet PO SCH ×2 (08:00→21:14)
[2018-06-13] MEDS: Insulin NovoLOG Aspart Correctional Sugar Inj SQ SCH ×4 (08:00→21:16)
--- NOTE | 2018-06-13 17:39 | P.PNIM ---
Subjective Interval history: Patient complains of on and off pain of the left lower extremity. He does not have any other complaints this afternoon. Physical Exam Vital signs: Vital Signs 06/12/18 20:00 06/13/18 00:00 06/13/18 04:00 Temperature 98.2 F 98.3 F 98.2 F Pulse Rate 105 H 94 H 96 H Respiratory Rate 18 18 18 Blood Pressure 136/76 126/70 145/74 H Pulse Oximetry 98 95 98 06/13/18 07:00 06/13/18 07:43 06/13/18 08:00 Temperature 98.1 F Pulse Rate 87 89 92 H Respiratory Rate 18 Blood Pressure 139/80 Pulse Oximetry 97 97 06/13/18 09:00 06/13/18 10:00 06/13/18 11:00 Temperature Pulse Rate 96 H 90 90 Respiratory Rate Blood Pressure Pulse Oximetry 06/13/18 12:00 06/13/18 13:00 06/13/18 14:00 Temperature 98.0 F Pulse Rate 88 92 H 88 Respiratory Rate 18 Blood Pressure 151/80 H Pulse Oximetry 06/13/18 15:00 06/13/18 15:13 06/13/18 16:00 Temperature 98.0 F Pulse Rate 91 H 86 94 H Respiratory Rate 18 Blood Pressure 151/83 H Pulse Oximetry 100 Intake & Output 06/12/18 06/13/18 06/13/18 18:59 06:59 18:59 Intake Total 1475 / 1475 1355 / 1355 2175 / 2175 Output Total 55 / 55 1900 / 1900 Balance 1420 / 1420 -545 / -545 2175 / 2175 Weight 92.9 kg Intake: IV 865 / 865 875 / 875 2175 / 2175 LR 1000 mL Inj 1,000 ML @ 60 500 / 500 mls/hr IV.CONT .[id number] [facility] Rx# :[id number] NS Inj 1,000 ML @ 100 mls/hr IV 0 / 0 1000 / 1000 .CONT .Q10H [facility] Rx#:[id number] Maxipime Inj 2,000 MG In NS Inj 100 / 100 200 / 200 100 / 100 100 ML @ 200 mls/hr IV.SIG Q8H [facility] Rx#:[id number] Cleocin 900 mg/NS Premix 900 mg 150 / 150 50 / 50 In 50 ml @ 100 mls/hr IV.SIG Q8H [facility] Rx#:[id number] Vancomycin Inj 1,500 MG In NS 765 / 765 525 / 525 525 / 525 Inj 500 ML @ 250 mls/hr IV.SIG Q12H [facility] Rx#:[id number] Oral 60 / 60 480 / 480 Anesthesia Amount 550 / 550 Output: Urine 0 / 0 1200 / 1200 Emesis 50 / 50 700 / 700 Estimated Blood Loss 5 / 5 Wound Drainage 0 / 0 # 1 Left Calf REGINALD Drain 0 / 0 Other: Date of Last Bowel Movement 06/11/18 Narrative: General patient in no acute distress, pain well controlled with pain medications. HEENT extraocular movements are intact, clear oropharyngeal mucosa, no JVD Cardiovascular S1-S2 audible, RRR, no murmurs rubs or gallops Respiratory clear to auscultation bilaterally Abdomen soft, nontender, nondistended, normal bowel sounds Extremities left lower extremity with drain in place near the calf, bandage covering the left lower extremity from the left gonzalez down to the foot. Neuro there are no neurological deficits. Sensation is intact bilaterally Results - Labs CBC & Chem 7: 06/13/18 03:29 06/13/18 03:29 Laboratory Results - last 24 hr 06/12/18 06/12/18 06/12/18 17:18 17:18 17:18 WBC RBC Hgb Hct MCV MCH MCHC RDW Plt Count MPV Prelim Diff (Auto) Neut % (Auto) Lymph % (Auto) [place] % (Auto) Eos % (Auto) Baso % (Auto) Neut # (Auto) Lymph # (Auto) [place] # (Auto) Eos # (Auto) Baso # (Auto) WBC Differential Seg Neuts % (Manual) Band Neuts % (Manual) Lymphocytes % (Manual) Monocytes % (Manual) Abs Neuts (Manual) Differential Comment Platelet Estimate Platelet Morphology Sodium Potassium Chloride Carbon Dioxide Anion Gap BUN Creatinine Estimated GFR POC Glucose Random Glucose Hemoglobin A1c 8.9 H Calcium Total Bilirubin AST ALT Alkaline Phosphatase Total Protein Albumin TSH 1.440 Free T4 1.57 H 06/12/18 06/13/18 06/13/18 20:36 03:29 03:29 WBC 23.1 H RBC 4.10 L Hgb 11.7 L Hct 34.3 L MCV 83.8 MCH 28.5 MCHC 34.1 RDW 16.5 Plt Count 417 MPV 8.4 Prelim Diff (Auto) Slide review pending Neut % (Auto) 83.7 H Lymph % (Auto) 5.9 L [place] % (Auto) 9.7 H Eos % (Auto) 0.1 Baso % (Auto) 0.6 Neut # (Auto) 19.3 H Lymph # (Auto) 1.4 [place] # (Auto) 2.2 H Eos # (Auto) 0.0 Baso # (Auto) 0.1 WBC Differential Manual diff final Seg Neuts % (Manual) 75 H Band Neuts % (Manual) 5 Lymphocytes % (Manual) 5 L Monocytes % (Manual) 15 H Abs Neuts (Manual) 18.5 H Differential Comment . Platelet Estimate Normal Platelet Morphology Normal Sodium 133 L Potassium 4.1 Chloride 98 Carbon Dioxide 25.1 Anion Gap 10 BUN 20 H Creatinine 1.33 H Estimated GFR 58 L POC Glucose 426 H Random Glucose 230 H Hemoglobin A1c Calcium 8.7 Total Bilirubin 0.6 AST 26 ALT 20 Alkaline Phosphatase 155 H Total Protein 6.6 D Albumin 2.0 L D TSH Free T4 06/13/18 06/13/18 06/13/18 07:54 11:51 16:28 WBC RBC Hgb Hct MCV MCH MCHC RDW Plt Count MPV Prelim Diff (Auto) Neut % (Auto) Lymph % (Auto) [place] % (Auto) Eos % (Auto) Baso % (Auto) Neut # (Auto) Lymph # (Auto) [place] # (Auto) Eos # (Auto) Baso # (Auto) WBC Differential Seg Neuts % (Manual) Band Neuts % (Manual) Lymphocytes % (Manual) Monocytes % (Manual) Abs Neuts (Manual) Differential Comment Platelet Estimate Platelet Morphology Sodium Potassium Chloride Carbon Dioxide Anion Gap BUN Creatinine Estimated GFR POC Glucose 166 H 232 H 160 H Random Glucose Hemoglobin A1c Calcium Total Bilirubin AST ALT Alkaline Phosphatase Total Protein Albumin TSH Free T4 Microbiology 06/12/18 13:25 Fluid - Other Gram Stain - Final 06/12/18 13:25 Fluid - Other Wound Culture - Preliminary Staphylococcus aureus 06/12/18 13:24 Fluid - Other Gram Stain - Final 06/12/18 13:24 Fluid - Other Wound Culture - Preliminary Staphylococcus aureus 06/12/18 13:24 Fluid - Other Fungal Smear - Final No fungal elements seen 06/11/18 20:55 Blood - Peripheral Aerobic Blood Culture - Preliminary No growth in 2 days 06/11/18 20:55 Blood - Peripheral Anaerobic Blood Culture - Preliminary No growth in 2 days 06/11/18 21:00 Blood - Peripheral Aerobic Blood Culture - Preliminary No growth in 2 days 06/11/18 21:00 Blood - Peripheral Anaerobic Blood Culture - Preliminary No growth in 2 days 06/12/18 13:25 Fluid - Other Fungal Smear - Final No fungal elements seen Assessment and Plan - Plan This patient is a 48-year-old male with a diagnosis of insulin- dependent diabetes. The patient came into the emergency room with complaints of left lower external knee pain and swelling. The patient was started on Bactrim outpatient without any improvement in his symptoms. He was evaluated by his orthopedic surgeon Dr. Manoj Winkler on the day prior to admission and was told to come into the emergency department to be evaluated. 1. Sepsis secondary to left lower extremity cellulitis status post incision and drainage Patient was evaluated in the emergency department and a CT scan of left lower extremity showed a fluid collection deep in the gastrocnemius muscle. The patient subsequently underwent incision and drainage and a significant amount of purulent fluid was drained from the left medial calf. Currently the patient has a drain in place in the left lower extremity is wrapped in a bandage. There is serosanguineous fluid in the drain. WBC count is elevated and is downtrending. Afebrile overnight Continue IV antibiotics. Continue pain medications, we will adjust his pain medications as needed. 2. Insulin-dependent diabetes Continue Lantus 25 units subcu nightly, Continue insulin sliding scale Adjust insulin regimen as needed. 3. Gastroesophageal reflux disease Continue PPI. The patient had surgery of his left lower extremity yesterday. We will start pharmacotherapy for DVT prophylaxis once it is okay by the surgical team.
[2018-06-13] MEDS ORDERED: Pharmacy Ordered Lab Info OTHER ONE (17:45)
[2018-06-13] MEDS: Insulin Detemir Inj 1,000 UNIT/10 ML Vial SQ SCH (21:17)
[2018-06-13 22:23] LABS: Magnesium 1.8 mg/dL (1.5-2.5)
[2018-06-14] MEDS: Sod Chloride 0.9% Inj 1,000 ML IV.CONT SCH ×3 (03:52→07:08)
[2018-06-14] MEDS: Clindamycin 900 mg/NS Premix 900 MG/50 ML PIGGYBACK IV.SIG SCH ×2 (05:20→14:14)
[2018-06-14] MEDS: Vancomycin Inj 1,500 MG in Sodium Chlor 0.9% Inj 500 ML IV.SIG SCH (05:20)
[2018-06-14] MEDS ORDERED: Pharmacy Ordered Lab Info OTHER ONE (05:45)
[2018-06-14 07:26] LABS: Baso # (Auto) 0.1 th/mm3 (0.0-0.2); Baso % (Auto) 0.6 % (0.0-2.0); Eos # (Auto) 0.1 th/mm3 (0.0-0.4); Eos % (Auto) 0.7 % (0.0-4.0); Hemoglobin 11.3 gm/dL (13.0-17.0); Lymph # (Auto) 1.5 th/mm3 (1.0-4.8); Lymph % (Auto) 9.1 % (9.0-44.0); Mean Corpuscular HGB Conc 33.3 % (32.0-36.0); Mean Corpuscular Hemoglobin 28.5 pg (27.0-34.0); Mean Corpuscular Volume 85.7 fL (80.0-100.0); Mean Platelet Volume 8.4 fL (7.0-11.0); Mono # (Auto) 1.4 th/mm3 (0.0-0.9); Mono % (Auto) 8.7 % (0.0-8.0); Neut # (Auto) 13.2 th/mm3 (1.8-7.7); Neut % (Auto) 80.9 % (16.0-70.0); Platelet Count 431 th/mm3 (150-450); Red Blood Count 3.97 mil/mm3 (4.50-5.90); Red Cell Distribution Width 16.4 % (11.6-17.2); White Blood Count 16.3 th/mm3 (4.0-11.0)
--- NOTE | 2018-06-14 07:38 | P.PNOP ---
Subjective Interval history: POD 2 s/p I&D left calf doing well. reports pain and swelling but controlled. ambulating on own. Physical Exam Vital signs: Vital Signs 06/13/18 07:43 06/13/18 08:00 06/13/18 09:00 Temperature 98.1 F Pulse Rate 89 92 H 96 H Respiratory Rate 18 Blood Pressure 139/80 Pulse Oximetry 97 97 06/13/18 10:00 06/13/18 11:00 06/13/18 12:00 Temperature 98.0 F Pulse Rate 90 90 88 Respiratory Rate 18 Blood Pressure 151/80 H Pulse Oximetry 06/13/18 13:00 06/13/18 14:00 06/13/18 15:00 Temperature Pulse Rate 92 H 88 91 H Respiratory Rate Blood Pressure Pulse Oximetry 06/13/18 15:13 06/13/18 16:00 06/13/18 17:00 Temperature 98.0 F Pulse Rate 86 94 H 88 Respiratory Rate 18 Blood Pressure 151/83 H Pulse Oximetry 100 06/13/18 18:00 06/13/18 19:00 06/13/18 20:00 Temperature 97.8 F Pulse Rate 90 96 H 96 H Respiratory Rate 18 Blood Pressure 188/100 H Pulse Oximetry 96 06/13/18 21:00 06/13/18 22:00 06/13/18 22:48 Temperature Pulse Rate 111 H 100 H Respiratory Rate Blood Pressure 168/90 H Pulse Oximetry 06/13/18 23:00 06/14/18 00:00 06/14/18 01:00 Temperature 97.5 F L Pulse Rate 84 80 85 Respiratory Rate 18 Blood Pressure 155/84 H Pulse Oximetry 98 06/14/18 02:00 06/14/18 03:00 06/14/18 04:00 Temperature 97.6 F Pulse Rate 85 64 92 H Respiratory Rate 18 Blood Pressure 144/62 H Pulse Oximetry 97 06/14/18 05:00 06/14/18 06:00 06/14/18 07:16 Temperature Pulse Rate 88 95 H 92 H Respiratory Rate Blood Pressure Pulse Oximetry Intake & Output 06/13/18 06/14/18 06/14/18 18:59 06:59 18:59 Intake Total 3675 / 3675 2785 / 2785 Output Total 900 / 900 2503 / 2503 Balance 2775 / 2775 282 / 282 Weight 92.4 kg Intake: IV 2175 / 2175 1825 / 1825 LR 1000 mL Inj 1,000 ML @ 60 500 / 500 mls/hr IV.CONT .[id number] [facility] Rx# :[id number] NS Inj 1,000 ML @ 100 mls/hr IV 1000 / 1000 1000 / 1000 .CONT .Q10H [facility] Rx#:[id number] Maxipime Inj 2,000 MG In NS Inj 100 / 100 200 / 200 100 ML @ 200 mls/hr IV.SIG Q8H [facility] Rx#:[id number] Cleocin 900 mg/NS Premix 900 mg 50 / 50 100 / 100 In 50 ml @ 100 mls/hr IV.SIG Q8H [facility] Rx#:[id number] Vancomycin Inj 1,500 MG In NS 525 / 525 525 / 525 Inj 500 ML @ 250 mls/hr IV.SIG Q12H [facility] Rx#:[id number] Oral 1500 / 1500 960 / 960 Output: Urine 900 / 900 2500 / 2500 Wound Drainage 3 / # 1 Left Calf REGINALD Drain 3 Other: Date of Last Bowel Movement 06/11/18 06/11/18 Narrative: LLE: dressings clean and dry. intact. NVI. +drain. Results - Labs CBC & Chem 7: 06/14/18 05:16 06/13/18 03:29 Laboratory Results - last 24 hr 06/13/18 06/13/18 06/13/18 03:29 07:54 11:51 WBC RBC Hgb Hct MCV MCH MCHC RDW Plt Count MPV Neut % (Auto) Lymph % (Auto) [place] % (Auto) Eos % (Auto) Baso % (Auto) Neut # (Auto) Lymph # (Auto) [place] # (Auto) Eos # (Auto) Baso # (Auto) WBC Differential Differential Comment POC Glucose 166 H 232 H Phosphorus 3.0 Magnesium 1.8 Vancomycin Trough Cancelled 06/13/18 06/13/18 06/14/18 16:28 20:20 05:16 WBC 16.3 H RBC 3.97 L Hgb 11.3 L Hct 34.0 L MCV 85.7 MCH 28.5 MCHC 33.3 RDW 16.4 Plt Count 431 MPV 8.4 Neut % (Auto) 80.9 H Lymph % (Auto) 9.1 [place] % (Auto) 8.7 H Eos % (Auto) 0.7 Baso % (Auto) 0.6 Neut # (Auto) 13.2 H Lymph # (Auto) 1.5 [place] # (Auto) 1.4 H Eos # (Auto) 0.1 Baso # (Auto) 0.1 WBC Differential . Differential Comment Auto diff final POC Glucose 160 H 333 H Phosphorus Magnesium Vancomycin Trough Microbiology 06/12/18 13:25 Fluid - Other Gram Stain - Final 06/12/18 13:25 Fluid - Other Wound Culture - Preliminary Staphylococcus aureus 06/12/18 13:24 Fluid - Other Gram Stain - Final 06/12/18 13:24 Fluid - Other Wound Culture - Preliminary Staphylococcus aureus 06/12/18 13:24 Fluid - Other Fungal Smear - Final No fungal elements seen 06/11/18 20:55 Blood - Peripheral Aerobic Blood Culture - Preliminary No growth in 2 days 06/11/18 20:55 Blood - Peripheral Anaerobic Blood Culture - Preliminary No growth in 2 days 06/11/18 21:00 Blood - Peripheral Aerobic Blood Culture - Preliminary No growth in 2 days 06/11/18 21:00 Blood - Peripheral Anaerobic Blood Culture - Preliminary No growth in 2 days 06/12/18 13:25 Fluid - Other Fungal Smear - Final No fungal elements seen Assessment and Plan - Assessment and Plan 1) Left Calf Abscess s/p I&D -POD 2 -WBAT -daily dressing changes beginning today -maintain drain. will plan to remove tomorrow -monitoring cultures -Infectious Dz to manage Abx -will plan for DC home once IV Abx arranged -f/u with [facility] or [facility] in 2 weeks
[2018-06-14 08:13] LABS: Calcium 8.9 mg/dL (8.5-10.1); Carbon Dioxide 23.6 meq/L (21.0-32.0); Magnesium 1.8 mg/dL (1.5-2.5); Potassium 3.7 meq/L (3.5-5.1); Vancomycin,Trough 18.9 mcg/mL (5.0-10.0)
[2018-06-14] MEDS: Pantoprazole Sodium 20 MG DR Tablet PO SCH ×2 (08:35→20:04)
[2018-06-14] MEDS: Senna/Docusate Sodium 8.6/50 MG Tablet PO SCH ×2 (08:36→20:02)
[2018-06-14] MEDS: Loratadine 10 MG Tablet PO SCH (08:36)
[2018-06-14] MEDS: Insulin NovoLOG Aspart Correctional Sugar Inj SQ SCH ×4 (08:38→20:04)
--- NOTE | 2018-06-14 08:54 | P.DCO ---
- Certification I have seen patient Floyd Argueta III on 06/14/18. My clinical findings support the need for the requested home health care services because: I certify that my clinical findings support that this patient is homebound because:
--- NOTE | 2018-06-14 17:18 | P.PNIM ---
Subjective Interval history: Nursing denies any acute changes overnight except for some hypoglycemia earlier this morning. Patient appears to be surprised when I inform him that he had a pocket of infection or an abscess in his left foot that is the reason why he underwent surgical debridement. Informed him that he will need infectious disease consultation Physical Exam Vital signs: Vital Signs 06/13/18 18:00 06/13/18 19:00 06/13/18 20:00 Temperature 97.8 F Pulse Rate 90 96 H 96 H Respiratory Rate 18 Blood Pressure 188/100 H Pulse Oximetry 96 06/13/18 21:00 06/13/18 22:00 06/13/18 22:48 Temperature Pulse Rate 111 H 100 H Respiratory Rate Blood Pressure 168/90 H Pulse Oximetry 06/13/18 23:00 06/14/18 00:00 06/14/18 01:00 Temperature 97.5 F L Pulse Rate 84 80 85 Respiratory Rate 18 Blood Pressure 155/84 H Pulse Oximetry 98 06/14/18 02:00 06/14/18 03:00 06/14/18 04:00 Temperature 97.6 F Pulse Rate 85 64 92 H Respiratory Rate 18 Blood Pressure 144/62 H Pulse Oximetry 97 06/14/18 05:00 06/14/18 06:00 06/14/18 07:16 Temperature Pulse Rate 88 95 H 92 H Respiratory Rate Blood Pressure Pulse Oximetry 06/14/18 08:00 06/14/18 08:50 06/14/18 09:00 Temperature 97.6 F Pulse Rate 72 90 74 Respiratory Rate 18 Blood Pressure 152/78 H Pulse Oximetry 98 06/14/18 10:00 06/14/18 10:54 06/14/18 12:00 Temperature Pulse Rate 70 64 Respiratory Rate 16 Blood Pressure Pulse Oximetry 06/14/18 12:26 06/14/18 12:48 06/14/18 13:00 Temperature 98.1 F Pulse Rate 69 87 64 Respiratory Rate 16 Blood Pressure 169/97 H Pulse Oximetry 06/14/18 14:00 06/14/18 14:12 Temperature Pulse Rate 84 Respiratory Rate 16 Blood Pressure Pulse Oximetry Intake & Output 06/13/18 06/14/18 06/14/18 18:59 06:59 18:59 Intake Total 3675 / 3675 2785 / 2785 1250 / 1250 Output Total 900 / 900 2503 / 2503 Balance 2775 / 2775 282 / 282 1250 / 1250 Weight 92.4 kg Intake: IV 2175 / 2175 1825 / 1825 1250 / 1250 LR 1000 mL Inj 1,000 ML @ 60 500 / 500 mls/hr IV.CONT .[id number] [facility] Rx# :[id number] NS Inj 1,000 ML @ 100 mls/hr IV 1000 / 1000 1000 / 1000 600 / 600 .CONT .Q10H [facility] Rx#:[id number] Maxipime Inj 2,000 MG In NS Inj 100 / 100 200 / 200 100 / 100 100 ML @ 200 mls/hr IV.SIG Q8H [facility] Rx#:[id number] Cleocin 900 mg/NS Premix 900 mg 50 / 50 100 / 100 50 / 50 In 50 ml @ 100 mls/hr IV.SIG Q8H [facility] Rx#:[id number] Vancomycin Inj 1,500 MG In NS 525 / 525 525 / 525 500 / 500 Inj 500 ML @ 250 mls/hr IV.SIG Q12H [facility] Rx#:[id number] Oral 1500 / 1500 960 / 960 Output: Urine 900 / 900 2500 / 2500 Wound Drainage 3 / # 1 Left Calf REGINALD Drain 3 Other: Date of Last Bowel Movement 06/11/18 06/11/18 06/11/18 Narrative: Left lower leg gauze wrapping removed Medial incision looks clean dry and intact Drain in place Moderate left global pedal edema Patient seen able to ambulate on crutches with tiptoe weightbearing on the left foot Patient awake and alert, seem to be in no acute distress Results - Labs CBC & Chem 7: 06/14/18 05:16 06/14/18 05:16 Laboratory Results - last 24 hr 06/13/18 06/13/18 06/14/18 03:29 20:20 05:16 WBC 16.3 H RBC 3.97 L Hgb 11.3 L Hct 34.0 L MCV 85.7 MCH 28.5 MCHC 33.3 RDW 16.4 Plt Count 431 MPV 8.4 Neut % (Auto) 80.9 H Lymph % (Auto) 9.1 [place] % (Auto) 8.7 H Eos % (Auto) 0.7 Baso % (Auto) 0.6 Neut # (Auto) 13.2 H Lymph # (Auto) 1.5 [place] # (Auto) 1.4 H Eos # (Auto) 0.1 Baso # (Auto) 0.1 WBC Differential . Differential Comment Auto diff final Sodium Potassium Chloride Carbon Dioxide Anion Gap BUN Creatinine Estimated GFR POC Glucose 333 H Random Glucose Calcium Phosphorus 3.0 Magnesium 1.8 Vancomycin Trough Cancelled 06/14/18 06/14/18 06/14/18 05:16 08:19 08:33 WBC RBC Hgb Hct MCV MCH MCHC RDW Plt Count MPV Neut % (Auto) Lymph % (Auto) [place] % (Auto) Eos % (Auto) Baso % (Auto) Neut # (Auto) Lymph # (Auto) [place] # (Auto) Eos # (Auto) Baso # (Auto) WBC Differential Differential Comment Sodium 132 L Potassium 3.7 Chloride 96 L Carbon Dioxide 23.6 Anion Gap 12 BUN 16 Creatinine 0.99 Estimated GFR 81 L POC Glucose 54 L 62 L Random Glucose 38 L* D Calcium 8.9 Phosphorus Magnesium 1.8 Vancomycin Trough 18.9 H 06/14/18 06/14/18 06/14/18 09:00 11:29 15:40 WBC RBC Hgb Hct MCV MCH MCHC RDW Plt Count MPV Neut % (Auto) Lymph % (Auto) [place] % (Auto) Eos % (Auto) Baso % (Auto) Neut # (Auto) Lymph # (Auto) [place] # (Auto) Eos # (Auto) Baso # (Auto) WBC Differential Differential Comment Sodium Potassium Chloride Carbon Dioxide Anion Gap BUN Creatinine Estimated GFR POC Glucose 117 H 176 H 230 H Random Glucose Calcium Phosphorus Magnesium Vancomycin Trough 06/14/18 16:57 WBC RBC Hgb Hct MCV MCH MCHC RDW Plt Count MPV Neut % (Auto) Lymph % (Auto) [place] % (Auto) Eos % (Auto) Baso % (Auto) Neut # (Auto) Lymph # (Auto) [place] # (Auto) Eos # (Auto) Baso # (Auto) WBC Differential Differential Comment Sodium Potassium Chloride Carbon Dioxide Anion Gap BUN Creatinine Estimated GFR POC Glucose 255 H Random Glucose Calcium Phosphorus Magnesium Vancomycin Trough Microbiology 06/12/18 13:25 Fluid - Other Acid Fast Bacilli Smear - Final No acid fast bacilli seen 06/12/18 13:24 Fluid - Other Acid Fast Bacilli Smear - Final No acid fast bacilli seen 06/11/18 20:55 Blood - Peripheral Aerobic Blood Culture - Preliminary No growth in 3 days 06/11/18 20:55 Blood - Peripheral Anaerobic Blood Culture - Preliminary No growth in 3 days 06/11/18 21:00 Blood - Peripheral Aerobic Blood Culture - Preliminary No growth in 3 days 06/11/18 21:00 Blood - Peripheral Anaerobic Blood Culture - Preliminary No growth in 3 days 06/12/18 13:25 Fluid - Other Gram Stain - Final 06/12/18 13:25 Fluid - Other Wound Culture - Final Staphylococcus aureus 06/12/18 13:24 Fluid - Other Gram Stain - Final 06/12/18 13:24 Fluid - Other Wound Culture - Final Staphylococcus aureus 06/12/18 13:24 Fluid - Other Fungal Smear - Final No fungal elements seen Assessment and Plan - Plan This patient is a 48-year-old male with a diagnosis of insulin- dependent diabetes. The patient came into the emergency room with complaints of left lower external knee pain and swelling. The patient was started on Bactrim outpatient without any improvement in his symptoms. He was evaluated by his orthopedic surgeon Dr. Manoj Swan on the day prior to admission and was told to come into the emergency department to be evaluated. Sepsis secondary to left lower extremity gastrocnemius abscess -status post incision and drainage, cultures pending -Drain in place Leukocytosis improving Continue IV antibiotics, infectious disease consulted -Continue pain medications Insulin-dependent diabetes -Basal insulin decreased by 2 units due to hypoglycemia earlier this morning -Continue insulin sliding scale with Accu-Cheks Gastroesophageal reflux disease -Continue PPI. We will start pharmacotherapy for DVT prophylaxis once it is okay by the surgical team. Discharge Planning: pending ortho and ID clearance
--- NOTE | 2018-06-14 17:34 | P.CONID ---
History of Present Illness Service: ID Consult date: 06/14/18 Requesting Physician: Danny Johnston Reason for Consult: LLE infection Primary Care Provider: Jeffy Little MD Chief Complaint: Left leg pain and swelling History of Present Illness: 48 yo male with type I DM developped LLE pain, swelling sudden onset about 10 days ago he was seen in ER last monday and discjharged, but presentted back omnn Monday from ortho office Abscess was suspected and pt underwent I+D op clx + for MSSA + endorces fever, chills, nightsweats On cefepime, clindamycin, vancomycin Op findings reviewed: abscess Review of Systems All other systems reviewed negative except as stated in HPI PMFSH - History History Provided By: Patient - Medical History Medical History: Medical History (Last Reviewed 06/14/18 @ 17:30 by Paula Khan MD) Diabetes GERD (gastroesophageal reflux disease) Gout - Surgical History Surgical History: Surgical History (Last Reviewed 06/14/18 @ 17:30 by Paula Khan MD) H/O hand surgery Hx of hand surgery - Family History Family History: Family History (Last Reviewed 06/14/18 @ 17:30 by Paula Khan MD) Other Family history of diabetes mellitus - Social History I have reviewed the patient's Social History: Yes - Tobacco History Second Hand Smoke Exposure: Yes Tobacco Use In Past 30 Days: Yes Smoking Status: Never smoker Tobacco Type: Cigarettes - Alcohol History How Often Do You Have a Drink Containing Alcohol: Monthly or less - Substance Use History Substance History: No History of Abuse - Travel History History of Recent Travel: No Recent Travel in the [place] Within the Last 8 Weeks: No Recent Travel Out of the Country Within the Last 8 Weeks: No - Immunization History Tetanus Immunization: <5 Years Medications and Allergies Active Medications: Active Medications Acetaminophen (Tylenol) 650 mg PO Q6H PRN PRN Reason: PAIN SCALE 1 TO 10 Hydrocodone Bitart/Acetaminophen ([place] 7.5/325) 1 tab PO Q3H PRN PRN Reason: Pain Scale 3-10 Last Admin: 06/14/18 15:41 Dose: 1 tab Al Hydroxide/Mg Hydroxide (Milk Of Magnesia Liq) 30 ml PO Q12H PRN PRN Reason: Mild Constipation Bisacodyl (Dulcolax Supp) 10 mg RECTAL DAILY PRN PRN Reason: SEVERE CONSITIPATION Clonidine HCl (Catapres) 0.1 mg PO Q6H PRN PRN Reason: HYPERTENSION Last Admin: 06/13/18 21:14 Dose: 0.1 mg Dextrose (D50w Vial) 50 ml IV.PUSH UNSCH PRN PRN Reason: PER HYPOGLYCEMIA PROTOCOL Diphenhydramine HCl (Benadryl) 25 mg PO Q6H PRN PRN Reason: ITCHING Glucagon (Glucagon Inj) 1 mg OTHER PRN PRN PRN Reason: for Hypoglycemia Protocol Clindamycin/Sodium Chloride (Cleocin 900 Mg/Ns Premix) 900 mg in 50 mls @ 100 mls/hr IV.SIG Q8H MEIR Last Infusion: 06/14/18 15:27 Dose: Infused Cefepime HCl 2,000 mg/ Sodium (Chloride) 100 mls @ 200 mls/hr IV.SIG Q8H MEIR Last Infusion: 06/14/18 12:13 Dose: Infused Vancomycin HCl 1,500 mg/ (Sodium Chloride) 515 mls @ 250 mls/hr IV.SIG Q12H MEIR Last Infusion: 06/14/18 09:40 Dose: Infused Insulin Aspart (Novolog Insulin Correctional Sugar Inj) 0 unit SQ ACHS [facility]; Protocol Last Admin: 06/14/18 13:07 Dose: 1 unit Insulin Detemir (Levemir Inj) 25 unit SQ HS [facility] Last Admin: 06/13/18 21:17 Dose: 25 unit Lactulose (Lactulose Liq) 30 ml PO DAILY PRN PRN Reason: SEVERE CONSITIPATION Loratadine (Claritin) 10 mg PO DAILY [facility] Last Admin: 06/14/18 08:36 Dose: 10 mg Methocarbamol (Robaxin) 500 mg PO Q6H PRN PRN Reason: muscle spasm Miscellaneous Information ([facility] Ordered Lab Info) 0 each OTHER ONCE ONE Stop: 06/16/18 05:46 Morphine Sulfate (Morphine Inj) 3 mg IV.PUSH Q3H PRN PRN Reason: BREAKTHROUGH PAIN Ondansetron HCl (Zofran Odt) 4 mg PO Q6H PRN PRN Reason: NAUSEA OR VOMITING Ondansetron HCl (Zofran Inj) 4 mg IV.PUSH Q6H PRN PRN Reason: NAUSEA OR VOMITING Pantoprazole Sodium (Protonix) 20 mg PO BID [facility] Last Admin: 06/14/18 08:35 Dose: 20 mg Pharmacy Profile Note (Vancomycin Consult Pharmacy) 1 each OTHER UNSCH PRN PRN Reason: Pharmacy to dose Pregabalin (Lyrica) 200 mg PO TID [facility] Last Admin: 06/14/18 13:07 Dose: 200 mg Senna/Docusate Sodium (Sherrill-Colace) 1 tab PO BID [facility] Last Admin: 06/14/18 08:36 Dose: 1 tab Sennosides (Senokot) 17.2 mg PO Q12H PRN PRN Reason: Moderate Constipation Sodium Chloride (Ns Flush) 2 ml IV.FLUSH BID [facility] Last Admin: 06/14/18 08:39 Dose: Not Given Sodium Chloride (Ns Flush) 2 ml IV.FLUSH PRN PRN PRN Reason: FLUSH AFTER USING IV ACCESS Last Admin: 06/13/18 08:00 Dose: 2 ml Allergies Allergy/AdvReac Type Severity Reaction Status Date / Time gabapentin AdvReac Burning Verified 06/08/18 13:45 Home Medications Medication Instructions Recorded Confirmed Type insulin detemir U-100 [Levemir 25 unit SUBCUT QPM 06/08/18 06/11/18 History FlexTouch U-100 Insuln] insulin lispro [Humalog U-100 15 unit SUBCUT TID 06/08/18 06/11/18 History Insulin] loratadine [Claritin] 10 mg PO DAILY 06/08/18 06/11/18 History naproxen 500 mg PO BID 06/08/18 06/11/18 History omeprazole 20 mg PO BID 06/08/18 06/11/18 History pregabalin [Lyrica] 200 mg PO TID 06/08/18 06/11/18 History Exam Vital signs: Vital Signs 06/13/18 18:00 06/13/18 19:00 06/13/18 20:00 Temperature 97.8 F Pulse Rate 90 96 H 96 H Respiratory Rate 18 Blood Pressure 188/100 H Pulse Oximetry 96 06/13/18 21:00 06/13/18 22:00 06/13/18 22:48 Temperature Pulse Rate 111 H 100 H Respiratory Rate Blood Pressure 168/90 H Pulse Oximetry 06/13/18 23:00 06/14/18 00:00 06/14/18 01:00 Temperature 97.5 F L Pulse Rate 84 80 85 Respiratory Rate 18 Blood Pressure 155/84 H Pulse Oximetry 98 06/14/18 02:00 06/14/18 03:00 06/14/18 04:00 Temperature 97.6 F Pulse Rate 85 64 92 H Respiratory Rate 18 Blood Pressure 144/62 H Pulse Oximetry 97 06/14/18 05:00 06/14/18 06:00 06/14/18 07:16 Temperature Pulse Rate 88 95 H 92 H Respiratory Rate Blood Pressure Pulse Oximetry 06/14/18 08:00 06/14/18 08:50 06/14/18 09:00 Temperature 97.6 F Pulse Rate 72 90 74 Respiratory Rate 18 Blood Pressure 152/78 H Pulse Oximetry 98 06/14/18 10:00 06/14/18 10:54 06/14/18 12:00 Temperature Pulse Rate 70 64 Respiratory Rate 16 Blood Pressure Pulse Oximetry 06/14/18 12:26 06/14/18 12:48 06/14/18 13:00 Temperature 98.1 F Pulse Rate 69 87 64 Respiratory Rate 16 Blood Pressure 169/97 H Pulse Oximetry 06/14/18 14:00 06/14/18 14:12 Temperature Pulse Rate 84 Respiratory Rate 16 Blood Pressure Pulse Oximetry Intake & Output 06/13/18 06/14/18 06/14/18 18:59 06:59 18:59 Intake Total 3675 / 3675 2785 / 2785 1250 / 1250 Output Total 900 / 900 2503 / 2503 Balance 2775 / 2775 282 / 282 1250 / 1250 Weight 92.4 kg Intake: IV 2175 / 2175 1825 / 1825 1250 / 1250 LR 1000 mL Inj 1,000 ML @ 60 500 / 500 mls/hr IV.CONT .[id number] MEIR Rx# :[id number] NS Inj 1,000 ML @ 100 mls/hr IV 1000 / 1000 1000 / 1000 600 / 600 .CONT .Q10H MEIR Rx#:[id number] Maxipime Inj 2,000 MG In NS Inj 100 / 100 200 / 200 100 / 100 100 ML @ 200 mls/hr IV.SIG Q8H MEIR Rx#:[id number] Cleocin 900 mg/NS Premix 900 mg 50 / 50 100 / 100 50 / 50 In 50 ml @ 100 mls/hr IV.SIG Q8H MEIR Rx#:[id number] Vancomycin Inj 1,500 MG In NS 525 / 525 525 / 525 500 / 500 Inj 500 ML @ 250 mls/hr IV.SIG Q12H MEIR Rx#:[id number] Oral 1500 / 1500 960 / 960 Output: Urine 900 / 900 2500 / 2500 Wound Drainage 3 / # 1 Left Calf REGINALD Drain 3 Other: Date of Last Bowel Movement 06/11/18 06/11/18 06/11/18 - Constitutional no acute distress, average body habitus - Routine HEENT Exam Head: Present: normocephalic, atraumatic Eye: Present: EOMI, PERRL ENT: Present: mucous membranes moist, oropharynx clear - Routine Neck Exam Present: supple. Absent: JVD - Routine Respiratory Exam Present: CTA bilaterally. Absent: accessory muscle use, decreased breath sounds , respiratory distress - Routine Cardiovascular Exam Present: RRR, S1, S2. Absent: murmur, gallop, rubs - Routine Abdominal Exam Present: soft, normoactive bowel sounds. Absent: tenderness, distended - Routine Extremities Exam Present: edema (LLE), pulses intact, normal capillary refill, calf tenderness. Absent: cyanosis, clubbing Comments: LLE : lower leg edematous, dressing, REGINALD with serosang drainage in place - Routine Skin Exam Present: erythema. Absent: mottling, jaundice, rash - Routine Neurological Exam Present: alert, oriented X3, CN II-XII intact. Absent: sensory deficit, motor deficit - Routine Psychiatric Exam Present: normal affect, normal thought process, cooperative Results - Labs CBC & Chem 7: 06/14/18 05:16 06/14/18 05:16 Labs: Laboratory Results - last 24 hr 06/13/18 06/13/18 06/14/18 03:29 20:20 05:16 WBC 16.3 H RBC 3.97 L Hgb 11.3 L Hct 34.0 L MCV 85.7 MCH 28.5 MCHC 33.3 RDW 16.4 Plt Count 431 MPV 8.4 Neut % (Auto) 80.9 H Lymph % (Auto) 9.1 [place] % (Auto) 8.7 H Eos % (Auto) 0.7 Baso % (Auto) 0.6 Neut # (Auto) 13.2 H Lymph # (Auto) 1.5 [place] # (Auto) 1.4 H Eos # (Auto) 0.1 Baso # (Auto) 0.1 WBC Differential . Differential Comment Auto diff final Sodium Potassium Chloride Carbon Dioxide Anion Gap BUN Creatinine Estimated GFR POC Glucose 333 H Random Glucose Calcium Phosphorus 3.0 Magnesium 1.8 Vancomycin Trough Cancelled 06/14/18 06/14/18 06/14/18 05:16 08:19 08:33 WBC RBC Hgb Hct MCV MCH MCHC RDW Plt Count MPV Neut % (Auto) Lymph % (Auto) [place] % (Auto) Eos % (Auto) Baso % (Auto) Neut # (Auto) Lymph # (Auto) [place] # (Auto) Eos # (Auto) Baso # (Auto) WBC Differential Differential Comment Sodium 132 L Potassium 3.7 Chloride 96 L Carbon Dioxide 23.6 Anion Gap 12 BUN 16 Creatinine 0.99 Estimated GFR 81 L POC Glucose 54 L 62 L Random Glucose 38 L* D Calcium 8.9 Phosphorus Magnesium 1.8 Vancomycin Trough 18.9 H 06/14/18 06/14/18 06/14/18 09:00 11:29 15:40 WBC RBC Hgb Hct MCV MCH MCHC RDW Plt Count MPV Neut % (Auto) Lymph % (Auto) [place] % (Auto) Eos % (Auto) Baso % (Auto) Neut # (Auto) Lymph # (Auto) [place] # (Auto) Eos # (Auto) Baso # (Auto) WBC Differential Differential Comment Sodium Potassium Chloride Carbon Dioxide Anion Gap BUN Creatinine Estimated GFR POC Glucose 117 H 176 H 230 H Random Glucose Calcium Phosphorus Magnesium Vancomycin Trough 06/14/18 16:57 WBC RBC Hgb Hct MCV MCH MCHC RDW Plt Count MPV Neut % (Auto) Lymph % (Auto) [place] % (Auto) Eos % (Auto) Baso % (Auto) Neut # (Auto) Lymph # (Auto) [place] # (Auto) Eos # (Auto) Baso # (Auto) WBC Differential Differential Comment Sodium Potassium Chloride Carbon Dioxide Anion Gap BUN Creatinine Estimated GFR POC Glucose 255 H Random Glucose Calcium Phosphorus Magnesium Vancomycin Trough - Imaging Venous Doppler Study 06/11/18 20:53 CONCLUSION: The study is negative for lower extremity deep venous thrombosis. Aorta w/Runoff CTA 06/12/18 00:00 CONCLUSION: 1. No significant aortoiliac inflow stenosis 2. Focal disease at the trifurcation on the left. Otherwise basically normal runoff bilaterally 3. Nonspecific findings of cellulitis, myositis and fasciitis, most significantly involving the left calf Assessment and Plan - Plan cellulitis, myositis and fasciitis, most significantly involving the left calf , MSSA s/p I+D Leukocytosis Blood clx negative cont IV oxacillin anticipate transition to PO (dicloxacillin 500 mg PO qid ) to complete 14 days course providing pt improving clinically and not requiring any more debridements
[2018-06-14] MEDS: Insulin Detemir Inj 1,000 UNIT/10 ML Vial SQ SCH (21:00)
[2018-06-15] MEDS: Insulin NovoLOG Aspart Correctional Sugar Inj SQ SCH ×2 (08:27→12:15)
[2018-06-15] MEDS: Pantoprazole Sodium 20 MG DR Tablet PO SCH (08:27)
[2018-06-15] MEDS: Loratadine 10 MG Tablet PO SCH (08:29)
[2018-06-15] MEDS: Senna/Docusate Sodium 8.6/50 MG Tablet PO SCH (08:29)
--- NOTE | 2018-06-15 09:07 | P.PNOP ---
Subjective Interval history: s/p I&D with drain placement right leg doing well. pain controlled. ambulatory with crutches Physical Exam Vital signs: Vital Signs 06/14/18 10:00 06/14/18 10:54 06/14/18 12:00 Temperature Pulse Rate 70 64 Respiratory Rate 16 Blood Pressure Pulse Oximetry 06/14/18 12:26 06/14/18 12:48 06/14/18 13:00 Temperature 98.1 F Pulse Rate 69 87 64 Respiratory Rate 16 Blood Pressure 169/97 H Pulse Oximetry 06/14/18 14:00 06/14/18 14:12 06/14/18 18:30 Temperature 97.4 F L Pulse Rate 84 74 Respiratory Rate 16 20 Blood Pressure 166/94 H Pulse Oximetry 06/14/18 18:50 06/14/18 19:00 06/14/18 20:00 Temperature 97.7 F Pulse Rate 82 88 88 Respiratory Rate Blood Pressure 148/92 H Pulse Oximetry 98 06/14/18 21:00 06/14/18 21:20 06/14/18 22:00 Temperature Pulse Rate 94 H 86 Respiratory Rate 12 Blood Pressure Pulse Oximetry 06/14/18 23:00 06/15/18 00:00 06/15/18 01:00 Temperature 98.3 F Pulse Rate 85 94 H 84 Respiratory Rate Blood Pressure 157/90 H Pulse Oximetry 06/15/18 02:00 06/15/18 03:00 06/15/18 04:00 Temperature Pulse Rate 82 89 84 Respiratory Rate 12 Blood Pressure Pulse Oximetry 06/15/18 05:00 06/15/18 06:00 06/15/18 07:00 Temperature Pulse Rate 94 H 80 78 Respiratory Rate Blood Pressure Pulse Oximetry Intake & Output 06/14/18 06/15/18 06/15/18 18:59 06:59 18:59 Intake Total 2650 / 2650 780 / 780 Output Total 1700 / 1700 Balance 950 / 950 780 / 780 Weight 92.3 kg Intake: IV 1250 / 1250 300 / 300 NS Inj 1,000 ML @ 100 mls/hr IV 600 / 600 .CONT .Q10H MEIR Rx#:[id number] Maxipime Inj 2,000 MG In NS Inj 100 / 100 100 ML @ 200 mls/hr IV.SIG Q8H MEIR Rx#:[id number] Cleocin 900 mg/NS Premix 900 mg 50 / 50 In 50 ml @ 100 mls/hr IV.SIG Q8H MEIR Rx#:[id number] Prostaphlin Inj 2 GM In NS Inj 300 / 300 100 ML @ 200 mls/hr IV.SIG Q4H MEIR Rx#:[id number] Vancomycin Inj 1,500 MG In NS 500 / 500 Inj 500 ML @ 250 mls/hr IV.SIG Q12H MEIR Rx#:[id number] Oral 1400 / 1400 480 / 480 Output: Urine 1700 / 1700 Other: # Voids 3 Date of Last Bowel Movement 06/11/18 Narrative: LLE: dressings clean and dry. intact. NVI. +drain. minimal drainage Results - Labs CBC & Chem 7: 06/14/18 05:16 06/14/18 05:16 Laboratory Results - last 24 hr 06/14/18 06/14/18 06/14/18 09:00 11:29 15:40 POC Glucose 117 H 176 H 230 H 06/14/18 06/14/18 06/15/18 16:57 19:52 00:03 POC Glucose 255 H 219 H 132 H 06/15/18 08:20 POC Glucose 315 H Microbiology 06/12/18 13:25 Fluid - Other Acid Fast Bacilli Smear - Final No acid fast bacilli seen 06/12/18 13:24 Fluid - Other Acid Fast Bacilli Smear - Final No acid fast bacilli seen 06/11/18 20:55 Blood - Peripheral Aerobic Blood Culture - Preliminary No growth in 3 days 06/11/18 20:55 Blood - Peripheral Anaerobic Blood Culture - Preliminary No growth in 3 days 06/11/18 21:00 Blood - Peripheral Aerobic Blood Culture - Preliminary No growth in 3 days 06/11/18 21:00 Blood - Peripheral Anaerobic Blood Culture - Preliminary No growth in 3 days 06/12/18 13:25 Fluid - Other Gram Stain - Final 06/12/18 13:25 Fluid - Other Wound Culture - Final Staphylococcus aureus 06/12/18 13:24 Fluid - Other Gram Stain - Final 06/12/18 13:24 Fluid - Other Wound Culture - Final Staphylococcus aureus Assessment and Plan - Assessment and Plan 1) Left Calf Abscess s/p I&D - POD 3 -WBAT -daily dressing changes beginning today -drain removed at bedside. pressure dressing applied -cultures show MSSA -Infectious Dz to manage Abx -ortho cleared for DC home with [facility] for daily dressing changes -f/u with [facility] or [facility] in 2 weeks [id number] Prescription Drug Monitoring Database has been queried and verified prior to prescribing the controlled substance. Acute pain exception. This patient has normal, predicted, physiological, and time limited response to an adverse mechanical stimulus associated with surgery, trauma, or acute illness as described in my notes. There is a lack of alternative treatment options other than to include the prescribed narcotic treatment for this condition.
--- NOTE | 2018-06-15 09:08 | P.DCO ---
- Nursing Dressing changes: Daily dressing change, Xeroform, Coverderm/Primapore - Certification Need for Home Health services: I have seen patient Floyd Argueta III on 06/15/18. My clinical findings support the need for the requested home health care services because: Need for Home Health Services: Limited mobility due to disease progression Homebound Certification: I certify that my clinical findings support that this patient is homebound because: Homebound Certification: Post-op weakness
[2018-06-15 12:50] VITALS: RESP 16
--- NOTE | 2018-06-15 14:54 | P.DS ---
Date of admission: 06/12/18 04:00 Primary care physician: Jeffy Little MD Brief History from admission: Patient is a 48-year-old male with a past medical history of insulin- dependent diabetes who came into the emergency department for evaluation of a left lower extremity pain and swelling. Patient reports that the symptoms started on August 06, 2018 have progressively worsened. States that he was seen here and was started on Bactrim. He is dates that he was seen by his orthopedic surgeon Dr. Manoj Winkler yesterday who advised patient come to emergency department for reevaluation. The patient states that last week he had an ultrasound of the left lower extremity negative for DVT. Does report having intermittent fevers and chills with sweats. Denies any specific injury. Patient describes the pain as throbbing and constant and severe worse with movements and bowel patient denies any history of DVT or pulmonary embolism denies any history. Past medical history is significant for diabetes mellitus as well as seasonal allergies and GERD and neuropathy and history of gout Patient is scheduled to go for surgery regarding the left lower extremity abscess in the calf region DS: Medications - Discharge Medications Prescriptions: dicloxacillin 500 mg PO Q6H #56 cap hydrocodone-acetaminophen [[place]] 1 tab PO Q4H #40 tab DS: Summary Hospital Course: Patient was admitted, started on antibiotics. Underwent surgical debridement for left leg gastrocnemius muscle abscess. Culture grew out MSSA. Antibiotic regimen was selected with assistance of ID. Had some hypoglycemia and had his insulin adjusted. Patient has met maximal benefit from hospitalization and is clinically stable for discharge. - Time Spent with Patient Total time spent providing and/or coordinating discharge services: Less than 30 minutes Exam Vital signs: Vital Signs 06/14/18 18:30 06/14/18 18:50 06/14/18 19:00 Temperature 97.4 F L Pulse Rate 74 82 88 Respiratory Rate 20 Blood Pressure 166/94 H Pulse Oximetry 06/14/18 20:00 06/14/18 21:00 06/14/18 21:20 Temperature 97.7 F Pulse Rate 88 94 H Respiratory Rate 12 Blood Pressure 148/92 H Pulse Oximetry 98 06/14/18 22:00 06/14/18 23:00 06/15/18 00:00 Temperature 98.3 F Pulse Rate 86 85 94 H Respiratory Rate Blood Pressure 157/90 H Pulse Oximetry 06/15/18 01:00 06/15/18 02:00 06/15/18 03:00 Temperature Pulse Rate 84 82 89 Respiratory Rate Blood Pressure Pulse Oximetry 06/15/18 04:00 06/15/18 05:00 06/15/18 06:00 Temperature Pulse Rate 84 94 H 80 Respiratory Rate 12 Blood Pressure Pulse Oximetry 06/15/18 07:00 06/15/18 08:00 06/15/18 09:00 Temperature Pulse Rate 78 77 72 Respiratory Rate Blood Pressure Pulse Oximetry 06/15/18 09:26 06/15/18 10:00 06/15/18 10:35 Temperature Pulse Rate 72 78 Respiratory Rate 20 Blood Pressure Pulse Oximetry 06/15/18 12:00 06/15/18 12:50 06/15/18 13:00 Temperature 97.9 F Pulse Rate 82 72 Respiratory Rate 16 16 Blood Pressure 172/94 H Pulse Oximetry 99 06/15/18 13:07 Temperature Pulse Rate 80 Respiratory Rate Blood Pressure Pulse Oximetry Intake & Output 06/14/18 06/15/18 06/15/18 18:59 06:59 18:59 Intake Total 2650 / 2650 780 / 780 200 / 200 Output Total 1700 / 1700 Balance 950 / 950 780 / 780 200 / 200 Weight 92.3 kg Intake: IV 1250 / 1250 300 / 300 200 / 200 NS Inj 1,000 ML @ 100 mls/hr IV 600 / 600 .CONT .Q10H MEIR Rx#:[id number] Maxipime Inj 2,000 MG In NS Inj 100 / 100 100 ML @ 200 mls/hr IV.SIG Q8H MEIR Rx#:[id number] Cleocin 900 mg/NS Premix 900 mg 50 / 50 In 50 ml @ 100 mls/hr IV.SIG Q8H MEIR Rx#:[id number] Prostaphlin Inj 2 GM In NS Inj 300 / 300 200 / 200 100 ML @ 200 mls/hr IV.SIG Q4H MEIR Rx#:[id number] Vancomycin Inj 1,500 MG In NS 500 / 500 Inj 500 ML @ 250 mls/hr IV.SIG Q12H MEIR Rx#:[id number] Oral 1400 / 1400 480 / 480 Output: Urine 1700 / 1700 Other: # Voids 3 Date of Last Bowel Movement 06/11/18 Narrative: Left leg incision looks clean dry and intact, drain removed Mild edema in left foot Results Procedures completed during hospitalization: Surgical incision and debridement of left gastrocnemius Labs on day of discharge: Labs from last 24 hours 06/15/18 06/15/18 06/15/18 12:14 08:20 00:03 POC Glucose 272 H 315 H 132 H 06/14/18 06/14/18 06/14/18 19:52 16:57 15:40 POC Glucose 219 H 255 H 230 H Preliminary micro results at discharge 06/11/18 20:55 Aerobic Blood Culture - Preliminary Blood - Peripheral No growth in 4 days Anaerobic Blood Culture - Preliminary No growth in 4 days 06/11/18 21:00 Aerobic Blood Culture - Preliminary Blood - Peripheral No growth in 4 days Anaerobic Blood Culture - Preliminary No growth in 4 days - Impressions ITS Impressions Venous Doppler Study 06/11/18 20:53 CONCLUSION: The study is negative for lower extremity deep venous thrombosis. Aorta w/Runoff CTA 06/12/18 00:00 CONCLUSION: 1. No significant aortoiliac inflow stenosis 2. Focal disease at the trifurcation on the left. Otherwise basically normal runoff bilaterally 3. Nonspecific findings of cellulitis, myositis and fasciitis, most significantly involving the left calf Discharge Plan - Discharge Disposition Patient Disposition: Disch W/Home Health Service - Discharge Condition Condition: Stable - Discharge Order Discharge Orders: Discharge Order (Routine); Ordered 06/15/18 Ordered By: Danny Johnston Orthopedic Clear for Discharge (Routine); Ordered 06/15/18 Ordered By: Shankar Burns - Physicians Team Primary Care Provider: Jeffy Little Attending Provider: Danny Johnston Other Providers: Pavan Sharpe MD ; Paula Khan MD
--- NOTE | 2018-06-15 15:44 | P.PNID ---
Subjective Remarks: pain improved no fever WBC down to 16 K Antibiotics: oxacillin Allergies/Adverse Reactions: Allergies gabapentin Adverse Reaction (Verified 06/08/18 13:45) Burning Objective Vital Signs 06/14/18 18:30 06/14/18 18:50 06/14/18 19:00 Temperature 97.4 F L Pulse Rate 74 82 88 Respiratory Rate 20 Blood Pressure 166/94 H Pulse Oximetry 06/14/18 20:00 06/14/18 21:00 06/14/18 21:20 Temperature 97.7 F Pulse Rate 88 94 H Respiratory Rate 12 Blood Pressure 148/92 H Pulse Oximetry 98 06/14/18 22:00 06/14/18 23:00 06/15/18 00:00 Temperature 98.3 F Pulse Rate 86 85 94 H Respiratory Rate Blood Pressure 157/90 H Pulse Oximetry 06/15/18 01:00 06/15/18 02:00 06/15/18 03:00 Temperature Pulse Rate 84 82 89 Respiratory Rate Blood Pressure Pulse Oximetry 06/15/18 04:00 06/15/18 05:00 06/15/18 06:00 Temperature Pulse Rate 84 94 H 80 Respiratory Rate 12 Blood Pressure Pulse Oximetry 06/15/18 07:00 06/15/18 08:00 06/15/18 09:00 Temperature Pulse Rate 78 77 72 Respiratory Rate Blood Pressure Pulse Oximetry 06/15/18 09:26 06/15/18 10:00 06/15/18 10:35 Temperature Pulse Rate 72 78 Respiratory Rate 20 Blood Pressure Pulse Oximetry 06/15/18 12:00 06/15/18 12:50 06/15/18 13:00 Temperature 97.9 F Pulse Rate 82 72 Respiratory Rate 16 16 Blood Pressure 172/94 H Pulse Oximetry 99 06/15/18 13:07 06/15/18 15:00 Temperature Pulse Rate 80 73 Respiratory Rate Blood Pressure Pulse Oximetry Intake & Output 06/14/18 06/15/18 06/15/18 18:59 06:59 18:59 Intake Total 2650 / 2650 780 / 780 200 / 200 Output Total 1700 / 1700 Balance 950 / 950 780 / 780 200 / 200 Weight 92.3 kg Intake: IV 1250 / 1250 300 / 300 200 / 200 NS Inj 1,000 ML @ 100 mls/hr IV 600 / 600 .CONT .Q10H [facility] Rx#:[id number] Maxipime Inj 2,000 MG In NS Inj 100 / 100 100 ML @ 200 mls/hr IV.SIG Q8H [facility] Rx#:[id number] Cleocin 900 mg/NS Premix 900 mg 50 / 50 In 50 ml @ 100 mls/hr IV.SIG Q8H [facility] Rx#:[id number] Prostaphlin Inj 2 GM In NS Inj 300 / 300 200 / 200 100 ML @ 200 mls/hr IV.SIG Q4H [facility] Rx#:[id number] Vancomycin Inj 1,500 MG In NS 500 / 500 Inj 500 ML @ 250 mls/hr IV.SIG Q12H [facility] Rx#:[id number] Oral 1400 / 1400 480 / 480 Output: Urine 1700 / 1700 Other: # Voids 3 Date of Last Bowel Movement 06/11/18 06/11/18 20:55 Blood - Peripheral Aerobic Blood Culture - Preliminary No growth in 4 days 06/11/18 20:55 Blood - Peripheral Anaerobic Blood Culture - Preliminary No growth in 4 days 06/11/18 21:00 Blood - Peripheral Aerobic Blood Culture - Preliminary No growth in 4 days 06/11/18 21:00 Blood - Peripheral Anaerobic Blood Culture - Preliminary No growth in 4 days 06/12/18 13:25 Fluid - Other Acid Fast Bacilli Smear - Final No acid fast bacilli seen 06/12/18 13:25 Fluid - Other Mycobacterial Culture - Pending 06/12/18 13:24 Fluid - Other Acid Fast Bacilli Smear - Final No acid fast bacilli seen 06/12/18 13:24 Fluid - Other Mycobacterial Culture - Pending 06/12/18 13:25 Fluid - Other Gram Stain - Final 06/12/18 13:25 Fluid - Other Wound Culture - Final Staphylococcus aureus 06/12/18 13:24 Fluid - Other Gram Stain - Final 06/12/18 13:24 Fluid - Other Wound Culture - Final Staphylococcus aureus 06/12/18 13:24 Fluid - Other Fungal Smear - Final No fungal elements seen 06/12/18 13:24 Fluid - Other Fungal Culture - Pending 06/12/18 13:25 Fluid - Other Fungal Smear - Final No fungal elements seen 06/12/18 13:25 Fluid - Other Fungal Culture - Pending Lab - Hematology Results 06/14/18 05:16 WBC 16.3 H RBC 3.97 L Hgb 11.3 L Hct 34.0 L MCV 85.7 MCH 28.5 MCHC 33.3 RDW 16.4 Plt Count 431 MPV 8.4 Neut % (Auto) 80.9 H Lymph % (Auto) 9.1 [place] % (Auto) 8.7 H Eos % (Auto) 0.7 Baso % (Auto) 0.6 Neut # (Auto) 13.2 H Lymph # (Auto) 1.5 [place] # (Auto) 1.4 H Eos # (Auto) 0.1 Baso # (Auto) 0.1 WBC Differential . Differential Comment Auto diff final Lab - Chemistry Results 06/13/18 06/13/18 06/13/18 03:29 16:28 20:20 Sodium Potassium Chloride Carbon Dioxide Anion Gap BUN Creatinine Estimated GFR POC Glucose 160 H 333 H Random Glucose Calcium Phosphorus 3.0 Magnesium 1.8 06/14/18 06/14/18 06/14/18 05:16 08:19 08:33 Sodium 132 L Potassium 3.7 Chloride 96 L Carbon Dioxide 23.6 Anion Gap 12 BUN 16 Creatinine 0.99 Estimated GFR 81 L POC Glucose 54 L 62 L Random Glucose 38 L* D Calcium 8.9 Phosphorus Magnesium 1.8 06/14/18 06/14/18 06/14/18 09:00 11:29 15:40 Sodium Potassium Chloride Carbon Dioxide Anion Gap BUN Creatinine Estimated GFR POC Glucose 117 H 176 H 230 H Random Glucose Calcium Phosphorus Magnesium 06/14/18 06/14/18 06/15/18 16:57 19:52 00:03 Sodium Potassium Chloride Carbon Dioxide Anion Gap BUN Creatinine Estimated GFR POC Glucose 255 H 219 H 132 H Random Glucose Calcium Phosphorus Magnesium 06/15/18 06/15/18 08:20 12:14 Sodium Potassium Chloride Carbon Dioxide Anion Gap BUN Creatinine Estimated GFR POC Glucose 315 H 272 H Random Glucose Calcium Phosphorus Magnesium Imaging: ITS Impressions Venous Doppler Study 06/11/18 20:53 CONCLUSION: The study is negative for lower extremity deep venous thrombosis. Aorta w/Runoff CTA 06/12/18 00:00 CONCLUSION: 1. No significant aortoiliac inflow stenosis 2. Focal disease at the trifurcation on the left. Otherwise basically normal runoff bilaterally 3. Nonspecific findings of cellulitis, myositis and fasciitis, most significantly involving the left calf Physical Exam: GENERAL: NAD no chrissy SKIN: Warm and dry. No rash CARDIOVASCULAR: Regular rate and rhythm. No murmurs RESPIRATORY: No accessory muscle use. Clear to auscultation. Breath sounds equal bilaterally. GASTROINTESTINAL: Abdomen soft, non-tender, nondistended. Hepatic and splenic margins not palpable. MUSCULOSKELETAL: Extremities without clubbing, cyanosis, LLE edema Incision dry clean. well perfused NEUROLOGICAL: Awake and alert. Non focal Normal speech. PSYCHIATRIC: Appropriate mood and affect; insight and judgment normal. Assessment and Plan - Plan left calf abscess, MSSA dw orhto: no joint ivoovment, no necrotic muscle or fascia s/p I+D Leukocytosis: improving Blood clx negative change IV oxacillin to PO dicloxacillin 500 mg PO qid to complete 14 days course from the day of surgery (stop monster 06/26) OK to dc home fu with Dr Annemarie fofana RN dw Dr Johnston
[2018-06-15 16:37] VITALS: BP 147/78; TEMP 98; O2SAT 97
[2018-06-15 16:38] VITALS: PULSE 82
[2018-06-16] MEDS ORDERED: Pharmacy Ordered Lab Info OTHER ONE (05:45)
== END 2018-06-15 17:02 | disposition home health service (06) ==
LOC: NEPE 16:22 → NEDA 06-12 04:00 → HCPC 06-12 15:26 → HCIS 06-12 15:45
PROVIDERS: ADMIT Hospitalist; ATTEND Hospitalist

== ENCOUNTER 2018-06-18 10:06 | Inpatient (IN) ==
[2018-06-18] MEDS ORDERED: Sod Chloride 0.9% Inj 1,000 ML IV.SIG ONE (10:25)
[2018-06-18] MEDS ORDERED: Morphine Inj 4 MG/ML Vial IV.PUSH ONE (10:25)
[2018-06-18] MEDS ORDERED: Aluminum/Magnesium/Simethacone Susp 30 ML UDC PO ONE (10:25)
[2018-06-18 10:52] LABS: Baso # (Auto) 0.1 th/mm3 (0.0-0.2); Baso % (Auto) 0.3 % (0.0-2.0); Eos % (Auto) 0.2 % (0.0-4.0); Hematocrit 37.6 % (39.0-51.0); Hemoglobin 12.5 gm/dL (13.0-17.0); Lymph # (Auto) 0.9 th/mm3 (1.0-4.8); Lymph % (Auto) 4.9 % (9.0-44.0); Mean Corpuscular HGB Conc 33.3 % (32.0-36.0); Mean Corpuscular Hemoglobin 28.1 pg (27.0-34.0); Mean Corpuscular Volume 84.3 fL (80.0-100.0); Mean Platelet Volume 8.1 fL (7.0-11.0); Mono # (Auto) 0.6 th/mm3 (0.0-0.9); Mono % (Auto) 3.7 % (0.0-8.0); Neut # (Auto) 16.1 th/mm3 (1.8-7.7); Neut % (Auto) 90.9 % (16.0-70.0); Platelet Count 703 th/mm3 (150-450); Red Blood Count 4.46 mil/mm3 (4.50-5.90); Red Cell Distribution Width 16.9 % (11.6-17.2); White Blood Count 17.7 th/mm3 (4.0-11.0)
[2018-06-18 11:10] LABS: Alanine Aminotransferase 28 U/L (12-78); Albumin 2.4 g/dL (3.4-5.0); Anion Gap 21 meq/L (5-15); Aspartate Aminotransferase 25 U/L (15-37); Blood Urea Nitrogen 10 mg/dL (7-18); Calcium 9.5 mg/dL (8.5-10.1); Chloride 93 meq/L (98-107); Glomerular Filtration Rate 80 mL/min (>89); Glucose,Random 327 mg/dL (74-106); Lipase 34 U/L (73-393); Magnesium 1.8 mg/dL (1.5-2.5); Sodium 134 meq/L (136-145)
[2018-06-18 11:11] LABS: Alkaline Phosphatase 213 U/L (45-117); Total Protein 7.9 g/dL (6.4-8.2)
--- NOTE | 2018-06-18 11:14 | ED ---
HPI General Chief Complaint: Abdominal Pain Stated Complaint: Abdominal Pain Time Seen by Provider: 06/18/18 10:10 Source: patient Mode of arrival: ambulatory Limitations: no limitations History of Present Illness HPI narrative: 48-year-old male complains of nausea vomiting abdominal pain. He started about 1 AM. It has been constant since. Location is left upper quadrant. He states in the past he has had episode of diabetic ketoacidosis which was painful in a similar way however he states that overall it is not at this time feel like a DKA type scenario. No diarrhea. No fever. Patient denies unusual food intake. Patient underwent surgical debridement of left lower extremity. He reports compliance with antibiotics and that overall the left lower extremity appears much better with decreased erythema pain and swelling. Related Data Home Medications Medication Instructions Recorded Confirmed insulin lispro [Humalog U-100 15 unit SUBCUT TID 06/08/18 06/18/18 Insulin] loratadine [Claritin] 10 mg PO DAILY 06/08/18 06/18/18 naproxen 500 mg PO BID 06/08/18 06/18/18 omeprazole 20 mg PO BID 06/08/18 06/18/18 pregabalin [Lyrica] 200 mg PO TID 06/08/18 06/18/18 Previous Rx's Medication Instructions Recorded methocarbamol [Robaxin] 500 mg PO Q6H PRN #20 tab 06/08/18 insulin detemir U-100 [Levemir 23 unit SUBCUT QPM #0 ml 06/14/18 FlexTouch U-100 Insuln] hydrocodone-acetaminophen [Toomsuba] 1 tab PO Q4H #40 tab 06/15/18 Lactobacillus acidoph-L.bulgar 1 tab PO TID #90 tab 06/20/18 [Lactinex] cephalexin [Keflex] 500 mg PO QID #28 cap 06/20/18 clonidine HCl 0.1 mg PO TID PRN #30 tab 06/20/18 metoclopramide HCl [Reglan] 5 mg PO TID #90 tab 06/20/18 Allergies Allergy/AdvReac Type Severity Reaction Status Date / Time gabapentin AdvReac Burning Verified 06/18/18 10:09 Review of Systems ROS: all other systems reviewed are negative PMFSH Social History Social History Substance History: No History of Abuse Second Hand Smoke Exposure: Yes Smoking Status: Current every day smoker Tobacco Type: Cigarettes How Often Do You Have a Drink Containing Alcohol: Monthly or less Hx Recent Travel: No Recent Travel in [facility] within the Last 8 Weeks: No Recent Out of Country Travel within the Last 8 Weeks: No Immunization History Tetanus Immunization: Unsure Exam Narrative Exam Narrative: GENERAL: 48-year-old male well-nourished well-developed mild distress SKIN: Focused skin assessment warm/dry. HEAD: Atraumatic. Normocephalic. EYES: Pupils equal and round. No scleral icterus. No injection or drainage. ENT: No nasal bleeding or discharge. Mucous membranes pink and moist. NECK: Trachea midline. No JVD. CARDIOVASCULAR: Regular rate and rhythm. No murmur appreciated. RESPIRATORY: No accessory muscle use. Clear to auscultation. Breath sounds equal bilaterally. GASTROINTESTINAL: Soft. Diffuse generalized tenderness. Month or guarding. MUSCULOSKELETAL: Left lower extremity reveals wound dressing. No warmth induration or erythema. NEUROLOGICAL: Awake and alert. No obvious cranial nerve deficits. Motor grossly within normal limits. Normal speech. PSYCHIATRIC: Appropriate mood and affect; insight and judgment normal. Course Initial Documented Vital Signs Temperature 97.7 F 06/18/18 10:17 Pulse Rate 92 H 06/18/18 10:17 Respiratory Rate 21 06/18/18 10:17 Blood Pressure 191/94 H 06/18/18 10:17 Pulse Oximetry 100 06/18/18 10:17 Last Documented Vital Signs Temperature 97.9 F 06/20/18 04:00 Pulse Rate 75 06/20/18 11:17 Respiratory Rate 24 06/20/18 11:17 Blood Pressure 187/96 H 06/20/18 11:17 Pulse Oximetry 99 06/20/18 11:17 Medical Decision Making MDM Narrative Medical decision making narrative: Incidental note of mildly enlarged appendix seen on CT. This was discussed with general surgery Dr. Brandon. There is no tenderness at McBurney's point. Overall is considered less likely to be in keeping with appendicitis however we do see CT abnormality. Antibiotic started. General surgery consult placed. ABG added on. Discussed with Dr. Mckenzie for [facility]. Here patient received pain medication Phenergan and Zofran and IV fluids. Medical Screen Exam Complete: Yes Emergency Medical Condition: Yes Medical Records Medical records reviewed: Yes I reviewed the patient's medical records. Lab Data Lab results reviewed: Yes I reviewed the patient's lab results. Result diagrams: 06/20/18 06:28 06/20/18 11:22 Lab Results 06/18/18 06/18/18 06/18/18 Range/Units 10:40 10:40 10:40 WBC 17.7 H (4.0-11.0) th/mm3 RBC 4.46 L (4.50-5.90) mil/mm3 Hgb 12.5 L (13.0-17.0) gm/dL Hct 37.6 L (39.0-51.0) % MCV 84.3 (80.0-100.0) fL MCH 28.1 (27.0-34.0) pg MCHC 33.3 (32.0-36.0) % RDW 16.9 (11.6-17.2) % Plt Count 703 H D (150-450) th/mm3 MPV 8.1 (7.0-11.0) fL Prelim Diff (Auto) Slide review pending Neut % (Auto) 90.9 H (16.0-70.0) % Lymph % (Auto) 4.9 L (9.0-44.0) % [place] % (Auto) 3.7 (0.0-8.0) % Eos % (Auto) 0.2 (0.0-4.0) % Baso % (Auto) 0.3 (0.0-2.0) % Neut # (Auto) 16.1 H (1.8-7.7) th/mm3 Lymph # (Auto) 0.9 L (1.0-4.8) th/mm3 [place] # (Auto) 0.6 (0.0-0.9) th/mm3 Eos # (Auto) 0.0 (0.0-0.4) th/mm3 Baso # (Auto) 0.1 (0.0-0.2) th/mm3 WBC Differential Manual diff final Seg Neuts % (Manual) 83 H (16-70) % Band Neuts % (Manual) 8 H (0-6) % Lymphocytes % (Manual) 5 L (9-44) % Monocytes % (Manual) 3 (0-8) % Basophils % (Manual) 1 (0-2) % Abs Neuts (Manual) 16.1 H (1.8-7.7) th/mm3 Differential Comment . Toxic Granulation 1+ H (None) Platelet Estimate High H (Normal) Platelet Morphology Normal (Normal) Puncture Site Patient Temperature O2 Saturation (90-100) % ABG pH (7.380-7.420) ABG pCO2 (38-42) mmHg ABG pO2 (61-120) mmHg ABG HCO3 (22-26) mmol/L ABG O2 Content (12.0-20.0) Vol % ABG Base Excess (-2-2) mmol/L ABG Methemoglobin (0-2) % Yasmany Test Hemoglobin (12.0-16.0) G/DL Carboxyhemoglobin (0-4) % O2 Delivery Device Inspired O2 % Critical Value Sodium 134 L (136-145) meq/L Potassium 4.0 (3.5-5.1) meq/L Chloride 93 L (98-107) meq/L Carbon Dioxide 20.0 L (21.0-32.0) meq/L Anion Gap 21 H (5-15) meq/L BUN 10 (7-18) mg/dL Creatinine 1.00 (0.60-1.30) mg/dL Estimated GFR 80 L (>89) mL/min POC Glucose (68-110) mg/dl Random Glucose 327 H (74-106) mg/dL Calcium 9.5 (8.5-10.1) mg/dL Magnesium 1.8 (1.5-2.5) mg/dL Total Bilirubin 0.5 (0.2-1.0) mg/dL AST 25 (15-37) U/L ALT 28 (12-78) U/L Alkaline Phosphatase 213 H (45-117) U/L Total Protein 7.9 D (6.4-8.2) g/dL Albumin 2.4 L (3.4-5.0) g/dL Lipase 34 L (73-393) U/L Beta-Hydroxybutyric Acd 6.70 H (0.00-0.39) mmol/L Urine Color (Yellw/Straw) Urine Clarity (Clear) Urine pH (5.0-8.5) Ur Specific [place] (1.002-1.035) Urine Protein (Neg-Trace) mg/dL Urine Glucose (UA) (Negative) mg/dL Urine Ketones (Negative) mg/dL Urine Occult Blood (Negative) Urine Nitrate (Negative) Urine Bilirubin (Negative) Urine Urobilinogen (Less than 2) mg/dL Ur Leukocyte Esterase (Negative) Urine RBC (0-3) /hpf Urine WBC (0-5) /hpf Micro UA Comment Ur Microscopic Review Urine Culture Comments Nasal Screen MRSA (PCR) (Negative) 06/18/18 06/18/18 06/18/18 Range/Units 12:14 13:10 18:12 WBC (4.0-11.0) th/mm3 RBC (4.50-5.90) mil/mm3 Hgb (13.0-17.0) gm/dL Hct (39.0-51.0) % MCV (80.0-100.0) fL MCH (27.0-34.0) pg MCHC (32.0-36.0) % RDW (11.6-17.2) % Plt Count (150-450) th/mm3 MPV (7.0-11.0) fL Prelim Diff (Auto) Neut % (Auto) (16.0-70.0) % Lymph % (Auto) (9.0-44.0) % [place] % (Auto) (0.0-8.0) % Eos % (Auto) (0.0-4.0) % Baso % (Auto) (0.0-2.0) % Neut # (Auto) (1.8-7.7) th/mm3 Lymph # (Auto) (1.0-4.8) th/mm3 [place] # (Auto) (0.0-0.9) th/mm3 Eos # (Auto) (0.0-0.4) th/mm3 Baso # (Auto) (0.0-0.2) th/mm3 WBC Differential Seg Neuts % (Manual) (16-70) % Band Neuts % (Manual) (0-6) % Lymphocytes % (Manual) (9-44) % Monocytes % (Manual) (0-8) % Basophils % (Manual) (0-2) % Abs Neuts (Manual) (1.8-7.7) th/mm3 Differential Comment Toxic Granulation (None) Platelet Estimate (Normal) Platelet Morphology (Normal) Puncture Site Right radial Patient Temperature 98.6 O2 Saturation 94 (90-100) % ABG pH 7.37 L (7.380-7.420) ABG pCO2 31 L (38-42) mmHg ABG pO2 90 (61-120) mmHg ABG HCO3 17 L (22-26) mmol/L ABG O2 Content 19.7 (12.0-20.0) Vol % ABG Base Excess -6.8 L (-2-2) mmol/L ABG Methemoglobin 0.7 (0-2) % Yasmany Test Present Hemoglobin 14.8 (12.0-16.0) G/DL Carboxyhemoglobin 1.0 (0-4) % O2 Delivery Device Ra Inspired O2 21 % Critical Value No Sodium (136-145) meq/L Potassium (3.5-5.1) meq/L Chloride (98-107) meq/L Carbon Dioxide (21.0-32.0) meq/L Anion Gap (5-15) meq/L BUN (7-18) mg/dL Creatinine (0.60-1.30) mg/dL Estimated GFR (>89) mL/min POC Glucose 380 H (68-110) mg/dl Random Glucose (74-106) mg/dL Calcium (8.5-10.1) mg/dL Magnesium (1.5-2.5) mg/dL Total Bilirubin (0.2-1.0) mg/dL AST (15-37) U/L ALT (12-78) U/L Alkaline Phosphatase (45-117) U/L Total Protein (6.4-8.2) g/dL Albumin (3.4-5.0) g/dL Lipase (73-393) U/L Beta-Hydroxybutyric Acd (0.00-0.39) mmol/L Urine Color Straw (Yellw/Straw) Urine Clarity Clear (Clear) Urine pH 6.0 (5.0-8.5) Ur Specific [place] 1.018 (1.002-1.035) Urine Protein 100 H (Neg-Trace) mg/dL Urine Glucose (UA) 500 or greater (Negative) mg/dL Urine Ketones 80 or greater H (Negative) mg/dL Urine Occult Blood Negative (Negative) Urine Nitrate Negative (Negative) Urine Bilirubin Negative (Negative) Urine Urobilinogen Less than 2 (Less than 2) mg/dL Ur Leukocyte Esterase Negative (Negative) Urine RBC 2 (0-3) /hpf Urine WBC 1 (0-5) /hpf Micro UA Comment Culture not ind Ur Microscopic Review Not Reportable Urine Culture Comments Culture not ind Nasal Screen MRSA (PCR) (Negative) 06/18/18 06/19/18 06/19/18 Range/Units 23:13 04:16 04:16 WBC 18.7 H (4.0-11.0) th/mm3 RBC 4.31 L (4.50-5.90) mil/mm3 Hgb 12.0 L (13.0-17.0) gm/dL Hct 36.8 L (39.0-51.0) % MCV 85.3 (80.0-100.0) fL MCH 27.7 (27.0-34.0) pg MCHC 32.5 (32.0-36.0) % RDW 16.7 (11.6-17.2) % Plt Count 700 H (150-450) th/mm3 MPV 8.0 (7.0-11.0) fL Prelim Diff (Auto) Neut % (Auto) 87.2 H (16.0-70.0) % Lymph % (Auto) 6.6 L (9.0-44.0) % [place] % (Auto) 6.0 (0.0-8.0) % Eos % (Auto) 0.0 (0.0-4.0) % Baso % (Auto) 0.2 (0.0-2.0) % Neut # (Auto) 16.3 H (1.8-7.7) th/mm3 Lymph # (Auto) 1.2 (1.0-4.8) th/mm3 [place] # (Auto) 1.1 H (0.0-0.9) th/mm3 Eos # (Auto) 0.0 (0.0-0.4) th/mm3 Baso # (Auto) 0.0 (0.0-0.2) th/mm3 WBC Differential . Seg Neuts % (Manual) (16-70) % Band Neuts % (Manual) (0-6) % Lymphocytes % (Manual) (9-44) % Monocytes % (Manual) (0-8) % Basophils % (Manual) (0-2) % Abs Neuts (Manual) (1.8-7.7) th/mm3 Differential Comment Auto diff final Toxic Granulation (None) Platelet Estimate (Normal) Platelet Morphology (Normal) Puncture Site Patient Temperature O2 Saturation (90-100) % ABG pH (7.380-7.420) ABG pCO2 (38-42) mmHg ABG pO2 (61-120) mmHg ABG HCO3 (22-26) mmol/L ABG O2 Content (12.0-20.0) Vol % ABG Base Excess (-2-2) mmol/L ABG Methemoglobin (0-2) % Yasmany Test Hemoglobin (12.0-16.0) G/DL Carboxyhemoglobin (0-4) % O2 Delivery Device Inspired O2 % Critical Value Sodium 133 L (136-145) meq/L Potassium 4.5 (3.5-5.1) meq/L Chloride 95 L (98-107) meq/L Carbon Dioxide 15.3 L (21.0-32.0) meq/L Anion Gap 23 H (5-15) meq/L BUN 20 H (7-18) mg/dL Creatinine 1.52 H (0.60-1.30) mg/dL Estimated GFR 50 L (>89) mL/min POC Glucose 377 H (68-110) mg/dl Random Glucose 386 H (74-106) mg/dL Calcium 8.9 (8.5-10.1) mg/dL Magnesium (1.5-2.5) mg/dL Total Bilirubin (0.2-1.0) mg/dL AST (15-37) U/L ALT (12-78) U/L Alkaline Phosphatase (45-117) U/L Total Protein (6.4-8.2) g/dL Albumin (3.4-5.0) g/dL Lipase (73-393) U/L Beta-Hydroxybutyric Acd (0.00-0.39) mmol/L Urine Color (Yellw/Straw) Urine Clarity (Clear) Urine pH (5.0-8.5) Ur Specific [place] (1.002-1.035) Urine Protein (Neg-Trace) mg/dL Urine Glucose (UA) (Negative) mg/dL Urine Ketones (Negative) mg/dL Urine Occult Blood (Negative) Urine Nitrate (Negative) Urine Bilirubin (Negative) Urine Urobilinogen (Less than 2) mg/dL Ur Leukocyte Esterase (Negative) Urine RBC (0-3) /hpf Urine WBC (0-5) /hpf Micro UA Comment Ur Microscopic Review Urine Culture Comments Nasal Screen MRSA (PCR) (Negative) 06/19/18 06/19/18 06/19/18 Range/Units 08:04 10:07 10:45 WBC (4.0-11.0) th/mm3 RBC (4.50-5.90) mil/mm3 Hgb (13.0-17.0) gm/dL Hct (39.0-51.0) % MCV (80.0-100.0) fL MCH (27.0-34.0) pg MCHC (32.0-36.0) % RDW (11.6-17.2) % Plt Count (150-450) th/mm3 MPV (7.0-11.0) fL Prelim Diff (Auto) Neut % (Auto) (16.0-70.0) % Lymph % (Auto) (9.0-44.0) % [place] % (Auto) (0.0-8.0) % Eos % (Auto) (0.0-4.0) % Baso % (Auto) (0.0-2.0) % Neut # (Auto) (1.8-7.7) th/mm3 Lymph # (Auto) (1.0-4.8) th/mm3 [place] # (Auto) (0.0-0.9) th/mm3 Eos # (Auto) (0.0-0.4) th/mm3 Baso # (Auto) (0.0-0.2) th/mm3 WBC Differential Seg Neuts % (Manual) (16-70) % Band Neuts % (Manual) (0-6) % Lymphocytes % (Manual) (9-44) % Monocytes % (Manual) (0-8) % Basophils % (Manual) (0-2) % Abs Neuts (Manual) (1.8-7.7) th/mm3 Differential Comment Toxic Granulation (None) Platelet Estimate (Normal) Platelet Morphology (Normal) Puncture Site Patient Temperature O2 Saturation (90-100) % ABG pH (7.380-7.420) ABG pCO2 (38-42) mmHg ABG pO2 (61-120) mmHg ABG HCO3 (22-26) mmol/L ABG O2 Content (12.0-20.0) Vol % ABG Base Excess (-2-2) mmol/L ABG Methemoglobin (0-2) % Yasmany Test Hemoglobin (12.0-16.0) G/DL Carboxyhemoglobin (0-4) % O2 Delivery Device Inspired O2 % Critical Value Sodium (136-145) meq/L Potassium (3.5-5.1) meq/L Chloride (98-107) meq/L Carbon Dioxide (21.0-32.0) meq/L Anion Gap (5-15) meq/L BUN (7-18) mg/dL Creatinine (0.60-1.30) mg/dL Estimated GFR (>89) mL/min POC Glucose 456 H* 446 H (68-110) mg/dl Random Glucose (74-106) mg/dL Calcium (8.5-10.1) mg/dL Magnesium (1.5-2.5) mg/dL Total Bilirubin (0.2-1.0) mg/dL AST (15-37) U/L ALT (12-78) U/L Alkaline Phosphatase (45-117) U/L Total Protein (6.4-8.2) g/dL Albumin (3.4-5.0) g/dL Lipase (73-393) U/L Beta-Hydroxybutyric Acd (0.00-0.39) mmol/L Urine Color (Yellw/Straw) Urine Clarity (Clear) Urine pH (5.0-8.5) Ur Specific [place] (1.002-1.035) Urine Protein (Neg-Trace) mg/dL Urine Glucose (UA) (Negative) mg/dL Urine Ketones (Negative) mg/dL Urine Occult Blood (Negative) Urine Nitrate (Negative) Urine Bilirubin (Negative) Urine Urobilinogen (Less than 2) mg/dL Ur Leukocyte Esterase (Negative) Urine RBC (0-3) /hpf Urine WBC (0-5) /hpf Micro UA Comment Ur Microscopic Review Urine Culture Comments Nasal Screen MRSA (PCR) Not detected (Negative) 06/19/18 06/19/18 06/19/18 Range/Units 10:52 11:56 13:03 WBC (4.0-11.0) th/mm3 RBC (4.50-5.90) mil/mm3 Hgb (13.0-17.0) gm/dL Hct (39.0-51.0) % MCV (80.0-100.0) fL MCH (27.0-34.0) pg MCHC (32.0-36.0) % RDW (11.6-17.2) % Plt Count (150-450) th/mm3 MPV (7.0-11.0) fL Prelim Diff (Auto) Neut % (Auto) (16.0-70.0) % Lymph % (Auto) (9.0-44.0) % [place] % (Auto) (0.0-8.0) % Eos % (Auto) (0.0-4.0) % Baso % (Auto) (0.0-2.0) % Neut # (Auto) (1.8-7.7) th/mm3 Lymph # (Auto) (1.0-4.8) th/mm3 [place] # (Auto) (0.0-0.9) th/mm3 Eos # (Auto) (0.0-0.4) th/mm3 Baso # (Auto) (0.0-0.2) th/mm3 WBC Differential Seg Neuts % (Manual) (16-70) % Band Neuts % (Manual) (0-6) % Lymphocytes % (Manual) (9-44) % Monocytes % (Manual) (0-8) % Basophils % (Manual) (0-2) % Abs Neuts (Manual) (1.8-7.7) th/mm3 Differential Comment Toxic Granulation (None) Platelet Estimate (Normal) Platelet Morphology (Normal) Puncture Site Patient Temperature O2 Saturation (90-100) % ABG pH (7.380-7.420) ABG pCO2 (38-42) mmHg ABG pO2 (61-120) mmHg ABG HCO3 (22-26) mmol/L ABG O2 Content (12.0-20.0) Vol % ABG Base Excess (-2-2) mmol/L ABG Methemoglobin (0-2) % Yasmany Test Hemoglobin (12.0-16.0) G/DL Carboxyhemoglobin (0-4) % O2 Delivery Device Inspired O2 % Critical Value Sodium (136-145) meq/L Potassium (3.5-5.1) meq/L Chloride (98-107) meq/L Carbon Dioxide (21.0-32.0) meq/L Anion Gap (5-15) meq/L BUN (7-18) mg/dL Creatinine (0.60-1.30) mg/dL Estimated GFR (>89) mL/min POC Glucose 466 H* 413 H 352 H (68-110) mg/dl Random Glucose (74-106) mg/dL Calcium (8.5-10.1) mg/dL Magnesium (1.5-2.5) mg/dL Total Bilirubin (0.2-1.0) mg/dL AST (15-37) U/L ALT (12-78) U/L Alkaline Phosphatase (45-117) U/L Total Protein (6.4-8.2) g/dL Albumin (3.4-5.0) g/dL Lipase (73-393) U/L Beta-Hydroxybutyric Acd (0.00-0.39) mmol/L Urine Color (Yellw/Straw) Urine Clarity (Clear) Urine pH (5.0-8.5) Ur Specific [place] (1.002-1.035) Urine Protein (Neg-Trace) mg/dL Urine Glucose (UA) (Negative) mg/dL Urine Ketones (Negative) mg/dL Urine Occult Blood (Negative) Urine Nitrate (Negative) Urine Bilirubin (Negative) Urine Urobilinogen (Less than 2) mg/dL Ur Leukocyte Esterase (Negative) Urine RBC (0-3) /hpf Urine WBC (0-5) /hpf Micro UA Comment Ur Microscopic Review Urine Culture Comments Nasal Screen MRSA (PCR) (Negative) 06/19/18 06/19/18 06/19/18 Range/Units 14:06 15:03 15:58 WBC (4.0-11.0) th/mm3 RBC (4.50-5.90) mil/mm3 Hgb (13.0-17.0) gm/dL Hct (39.0-51.0) % MCV (80.0-100.0) fL MCH (27.0-34.0) pg MCHC (32.0-36.0) % RDW (11.6-17.2) % Plt Count (150-450) th/mm3 MPV (7.0-11.0) fL Prelim Diff (Auto) Neut % (Auto) (16.0-70.0) % Lymph % (Auto) (9.0-44.0) % [place] % (Auto) (0.0-8.0) % Eos % (Auto) (0.0-4.0) % Baso % (Auto) (0.0-2.0) % Neut # (Auto) (1.8-7.7) th/mm3 Lymph # (Auto) (1.0-4.8) th/mm3 [place] # (Auto) (0.0-0.9) th/mm3 Eos # (Auto) (0.0-0.4) th/mm3 Baso # (Auto) (0.0-0.2) th/mm3 WBC Differential Seg Neuts % (Manual) (16-70) % Band Neuts % (Manual) (0-6) % Lymphocytes % (Manual) (9-44) % Monocytes % (Manual) (0-8) % Basophils % (Manual) (0-2) % Abs Neuts (Manual) (1.8-7.7) th/mm3 Differential Comment Toxic Granulation (None) Platelet Estimate (Normal) Platelet Morphology (Normal) Puncture Site Patient Temperature O2 Saturation (90-100) % ABG pH (7.380-7.420) ABG pCO2 (38-42) mmHg ABG pO2 (61-120) mmHg ABG HCO3 (22-26) mmol/L ABG O2 Content (12.0-20.0) Vol % ABG Base Excess (-2-2) mmol/L ABG Methemoglobin (0-2) % Yasmany Test Hemoglobin (12.0-16.0) G/DL Carboxyhemoglobin (0-4) % O2 Delivery Device Inspired O2 % Critical Value Sodium (136-145) meq/L Potassium (3.5-5.1) meq/L Chloride (98-107) meq/L Carbon Dioxide (21.0-32.0) meq/L Anion Gap (5-15) meq/L BUN (7-18) mg/dL Creatinine (0.60-1.30) mg/dL Estimated GFR (>89) mL/min POC Glucose 288 H 254 H 317 H (68-110) mg/dl Random Glucose (74-106) mg/dL Calcium (8.5-10.1) mg/dL Magnesium (1.5-2.5) mg/dL Total Bilirubin (0.2-1.0) mg/dL AST (15-37) U/L ALT (12-78) U/L Alkaline Phosphatase (45-117) U/L Total Protein (6.4-8.2) g/dL Albumin (3.4-5.0) g/dL Lipase (73-393) U/L Beta-Hydroxybutyric Acd (0.00-0.39) mmol/L Urine Color (Yellw/Straw) Urine Clarity (Clear) Urine pH (5.0-8.5) Ur Specific [place] (1.002-1.035) Urine Protein (Neg-Trace) mg/dL Urine Glucose (UA) (Negative) mg/dL Urine Ketones (Negative) mg/dL Urine Occult Blood (Negative) Urine Nitrate (Negative) Urine Bilirubin (Negative) Urine Urobilinogen (Less than 2) mg/dL Ur Leukocyte Esterase (Negative) Urine RBC (0-3) /hpf Urine WBC (0-5) /hpf Micro UA Comment Ur Microscopic Review Urine Culture Comments Nasal Screen MRSA (PCR) (Negative) 06/19/18 06/19/18 06/19/18 Range/Units 17:05 17:57 18:22 WBC (4.0-11.0) th/mm3 RBC (4.50-5.90) mil/mm3 Hgb (13.0-17.0) gm/dL Hct (39.0-51.0) % MCV (80.0-100.0) fL MCH (27.0-34.0) pg MCHC (32.0-36.0) % RDW (11.6-17.2) % Plt Count (150-450) th/mm3 MPV (7.0-11.0) fL Prelim Diff (Auto) Neut % (Auto) (16.0-70.0) % Lymph % (Auto) (9.0-44.0) % [place] % (Auto) (0.0-8.0) % Eos % (Auto) (0.0-4.0) % Baso % (Auto) (0.0-2.0) % Neut # (Auto) (1.8-7.7) th/mm3 Lymph # (Auto) (1.0-4.8) th/mm3 [place] # (Auto) (0.0-0.9) th/mm3 Eos # (Auto) (0.0-0.4) th/mm3 Baso # (Auto) (0.0-0.2) th/mm3 WBC Differential Seg Neuts % (Manual) (16-70) % Band Neuts % (Manual) (0-6) % Lymphocytes % (Manual) (9-44) % Monocytes % (Manual) (0-8) % Basophils % (Manual) (0-2) % Abs Neuts (Manual) (1.8-7.7) th/mm3 Differential Comment Toxic Granulation (None) Platelet Estimate (Normal) Platelet Morphology (Normal) Puncture Site Patient Temperature O2 Saturation (90-100) % ABG pH (7.380-7.420) ABG pCO2 (38-42) mmHg ABG pO2 (61-120) mmHg ABG HCO3 (22-26) mmol/L ABG O2 Content (12.0-20.0) Vol % ABG Base Excess (-2-2) mmol/L ABG Methemoglobin (0-2) % Yasmany Test Hemoglobin (12.0-16.0) G/DL Carboxyhemoglobin (0-4) % O2 Delivery Device Inspired O2 % Critical Value Sodium 138 (136-145) meq/L Potassium 3.3 L D (3.5-5.1) meq/L Chloride 104 D (98-107) meq/L Carbon Dioxide 24.3 D (21.0-32.0) meq/L Anion Gap 10 (5-15) meq/L BUN 19 H (7-18) mg/dL Creatinine 1.30 (0.60-1.30) mg/dL Estimated GFR 59 L (>89) mL/min POC Glucose 191 H 151 H (68-110) mg/dl Random Glucose 130 H D (74-106) mg/dL Calcium 8.4 L (8.5-10.1) mg/dL Magnesium (1.5-2.5) mg/dL Total Bilirubin (0.2-1.0) mg/dL AST (15-37) U/L ALT (12-78) U/L Alkaline Phosphatase (45-117) U/L Total Protein (6.4-8.2) g/dL Albumin (3.4-5.0) g/dL Lipase (73-393) U/L Beta-Hydroxybutyric Acd (0.00-0.39) mmol/L Urine Color (Yellw/Straw) Urine Clarity (Clear) Urine pH (5.0-8.5) Ur Specific [place] (1.002-1.035) Urine Protein (Neg-Trace) mg/dL Urine Glucose (UA) (Negative) mg/dL Urine Ketones (Negative) mg/dL Urine Occult Blood (Negative) Urine Nitrate (Negative) Urine Bilirubin (Negative) Urine Urobilinogen (Less than 2) mg/dL Ur Leukocyte Esterase (Negative) Urine RBC (0-3) /hpf Urine WBC (0-5) /hpf Micro UA Comment Ur Microscopic Review Urine Culture Comments Nasal Screen MRSA (PCR) (Negative) 06/19/18 06/19/18 06/19/18 Range/Units 18:55 19:37 20:32 WBC (4.0-11.0) th/mm3 RBC (4.50-5.90) mil/mm3 Hgb (13.0-17.0) gm/dL Hct (39.0-51.0) % MCV (80.0-100.0) fL MCH (27.0-34.0) pg MCHC (32.0-36.0) % RDW (11.6-17.2) % Plt Count (150-450) th/mm3 MPV (7.0-11.0) fL Prelim Diff (Auto) Neut % (Auto) (16.0-70.0) % Lymph % (Auto) (9.0-44.0) % [place] % (Auto) (0.0-8.0) % Eos % (Auto) (0.0-4.0) % Baso % (Auto) (0.0-2.0) % Neut # (Auto) (1.8-7.7) th/mm3 Lymph # (Auto) (1.0-4.8) th/mm3 [place] # (Auto) (0.0-0.9) th/mm3 Eos # (Auto) (0.0-0.4) th/mm3 Baso # (Auto) (0.0-0.2) th/mm3 WBC Differential Seg Neuts % (Manual) (16-70) % Band Neuts % (Manual) (0-6) % Lymphocytes % (Manual) (9-44) % Monocytes % (Manual) (0-8) % Basophils % (Manual) (0-2) % Abs Neuts (Manual) (1.8-7.7) th/mm3 Differential Comment Toxic Granulation (None) Platelet Estimate (Normal) Platelet Morphology (Normal) Puncture Site Patient Temperature O2 Saturation (90-100) % ABG pH (7.380-7.420) ABG pCO2 (38-42) mmHg ABG pO2 (61-120) mmHg ABG HCO3 (22-26) mmol/L ABG O2 Content (12.0-20.0) Vol % ABG Base Excess (-2-2) mmol/L ABG Methemoglobin (0-2) % [place] Test Hemoglobin (12.0-16.0) G/DL Carboxyhemoglobin (0-4) % O2 Delivery Device Inspired O2 % Critical Value Sodium (136-145) meq/L Potassium (3.5-5.1) meq/L Chloride (98-107) meq/L Carbon Dioxide (21.0-32.0) meq/L Anion Gap (5-15) meq/L BUN (7-18) mg/dL Creatinine (0.60-1.30) mg/dL Estimated GFR (>89) mL/min POC Glucose 92 77 111 H (68-110) mg/dl Random Glucose (74-106) mg/dL Calcium (8.5-10.1) mg/dL Magnesium (1.5-2.5) mg/dL Total Bilirubin (0.2-1.0) mg/dL AST (15-37) U/L ALT (12-78) U/L Alkaline Phosphatase (45-117) U/L Total Protein (6.4-8.2) g/dL Albumin (3.4-5.0) g/dL Lipase (73-393) U/L Beta-Hydroxybutyric Acd (0.00-0.39) mmol/L Urine Color (Yellw/Straw) Urine Clarity (Clear) Urine pH (5.0-8.5) Ur Specific [place] (1.002-1.035) Urine Protein (Neg-Trace) mg/dL Urine Glucose (UA) (Negative) mg/dL Urine Ketones (Negative) mg/dL Urine Occult Blood (Negative) Urine Nitrate (Negative) Urine Bilirubin (Negative) Urine Urobilinogen (Less than 2) mg/dL Ur Leukocyte Esterase (Negative) Urine RBC (0-3) /hpf Urine WBC (0-5) /hpf Micro UA Comment Ur Microscopic Review Urine Culture Comments Nasal Screen MRSA (PCR) (Negative) 06/19/18 06/19/18 06/19/18 Range/Units 21:20 22:37 23:05 WBC (4.0-11.0) th/mm3 RBC (4.50-5.90) mil/mm3 Hgb (13.0-17.0) gm/dL Hct (39.0-51.0) % MCV (80.0-100.0) fL MCH (27.0-34.0) pg MCHC (32.0-36.0) % RDW (11.6-17.2) % Plt Count (150-450) th/mm3 MPV (7.0-11.0) fL Prelim Diff (Auto) Neut % (Auto) (16.0-70.0) % Lymph % (Auto) (9.0-44.0) % [place] % (Auto) (0.0-8.0) % Eos % (Auto) (0.0-4.0) % Baso % (Auto) (0.0-2.0) % Neut # (Auto) (1.8-7.7) th/mm3 Lymph # (Auto) (1.0-4.8) th/mm3 [place] # (Auto) (0.0-0.9) th/mm3 Eos # (Auto) (0.0-0.4) th/mm3 Baso # (Auto) (0.0-0.2) th/mm3 WBC Differential Seg Neuts % (Manual) (16-70) % Band Neuts % (Manual) (0-6) % Lymphocytes % (Manual) (9-44) % Monocytes % (Manual) (0-8) % Basophils % (Manual) (0-2) % Abs Neuts (Manual) (1.8-7.7) th/mm3 Differential Comment Toxic Granulation (None) Platelet Estimate (Normal) Platelet Morphology (Normal) Puncture Site Patient Temperature O2 Saturation (90-100) % ABG pH (7.380-7.420) ABG pCO2 (38-42) mmHg ABG pO2 (61-120) mmHg ABG HCO3 (22-26) mmol/L ABG O2 Content (12.0-20.0) Vol % ABG Base Excess (-2-2) mmol/L ABG Methemoglobin (0-2) % Yasmany Test Hemoglobin (12.0-16.0) G/DL Carboxyhemoglobin (0-4) % O2 Delivery Device Inspired O2 % Critical Value Sodium 136 (136-145) meq/L Potassium 3.5 (3.5-5.1) meq/L Chloride 101 (98-107) meq/L Carbon Dioxide 19.7 L (21.0-32.0) meq/L Anion Gap 15 (5-15) meq/L BUN 18 (7-18) mg/dL Creatinine 1.21 (0.60-1.30) mg/dL Estimated GFR 65 L (>89) mL/min POC Glucose 141 H 207 H (68-110) mg/dl Random Glucose 204 H (74-106) mg/dL Calcium 8.0 L (8.5-10.1) mg/dL Magnesium (1.5-2.5) mg/dL Total Bilirubin (0.2-1.0) mg/dL AST (15-37) U/L ALT (12-78) U/L Alkaline Phosphatase (45-117) U/L Total Protein (6.4-8.2) g/dL Albumin (3.4-5.0) g/dL Lipase (73-393) U/L Beta-Hydroxybutyric Acd (0.00-0.39) mmol/L Urine Color (Yellw/Straw) Urine Clarity (Clear) Urine pH (5.0-8.5) Ur Specific [place] (1.002-1.035) Urine Protein (Neg-Trace) mg/dL Urine Glucose (UA) (Negative) mg/dL Urine Ketones (Negative) mg/dL Urine Occult Blood (Negative) Urine Nitrate (Negative) Urine Bilirubin (Negative) Urine Urobilinogen (Less than 2) mg/dL Ur Leukocyte Esterase (Negative) Urine RBC (0-3) /hpf Urine WBC (0-5) /hpf Micro UA Comment Ur Microscopic Review Urine Culture Comments Nasal Screen MRSA (PCR) (Negative) 06/19/18 06/20/18 06/20/18 Range/Units 23:41 02:53 06:28 WBC (4.0-11.0) th/mm3 RBC (4.50-5.90) mil/mm3 Hgb (13.0-17.0) gm/dL Hct (39.0-51.0) % MCV (80.0-100.0) fL MCH (27.0-34.0) pg MCHC (32.0-36.0) % RDW (11.6-17.2) % Plt Count (150-450) th/mm3 MPV (7.0-11.0) fL Prelim Diff (Auto) Neut % (Auto) (16.0-70.0) % Lymph % (Auto) (9.0-44.0) % [place] % (Auto) (0.0-8.0) % Eos % (Auto) (0.0-4.0) % Baso % (Auto) (0.0-2.0) % Neut # (Auto) (1.8-7.7) th/mm3 Lymph # (Auto) (1.0-4.8) th/mm3 [place] # (Auto) (0.0-0.9) th/mm3 Eos # (Auto) (0.0-0.4) th/mm3 Baso # (Auto) (0.0-0.2) th/mm3 WBC Differential Seg Neuts % (Manual) (16-70) % Band Neuts % (Manual) (0-6) % Lymphocytes % (Manual) (9-44) % Monocytes % (Manual) (0-8) % Basophils % (Manual) (0-2) % Abs Neuts (Manual) (1.8-7.7) th/mm3 Differential Comment Toxic Granulation (None) Platelet Estimate (Normal) Platelet Morphology (Normal) Puncture Site Patient Temperature O2 Saturation (90-100) % ABG pH (7.380-7.420) ABG pCO2 (38-42) mmHg ABG pO2 (61-120) mmHg ABG HCO3 (22-26) mmol/L ABG O2 Content (12.0-20.0) Vol % ABG Base Excess (-2-2) mmol/L ABG Methemoglobin (0-2) % Yasmany Test Hemoglobin (12.0-16.0) G/DL Carboxyhemoglobin (0-4) % O2 Delivery Device Inspired O2 % Critical Value Sodium 134 L (136-145) meq/L Potassium 3.8 (3.5-5.1) meq/L Chloride 98 (98-107) meq/L Carbon Dioxide 21.5 (21.0-32.0) meq/L Anion Gap 15 (5-15) meq/L BUN 14 (7-18) mg/dL Creatinine 1.14 (0.60-1.30) mg/dL Estimated GFR 69 L (>89) mL/min POC Glucose 186 H 169 H (68-110) mg/dl Random Glucose 177 H (74-106) mg/dL Calcium 8.7 (8.5-10.1) mg/dL Magnesium (1.5-2.5) mg/dL Total Bilirubin (0.2-1.0) mg/dL AST (15-37) U/L ALT (12-78) U/L Alkaline Phosphatase (45-117) U/L Total Protein (6.4-8.2) g/dL Albumin (3.4-5.0) g/dL Lipase (73-393) U/L Beta-Hydroxybutyric Acd (0.00-0.39) mmol/L Urine Color (Yellw/Straw) Urine Clarity (Clear) Urine pH (5.0-8.5) Ur Specific [place] (1.002-1.035) Urine Protein (Neg-Trace) mg/dL Urine Glucose (UA) (Negative) mg/dL Urine Ketones (Negative) mg/dL Urine Occult Blood (Negative) Urine Nitrate (Negative) Urine Bilirubin (Negative) Urine Urobilinogen (Less than 2) mg/dL Ur Leukocyte Esterase (Negative) Urine RBC (0-3) /hpf Urine WBC (0-5) /hpf Micro UA Comment Ur Microscopic Review Urine Culture Comments Nasal Screen MRSA (PCR) (Negative) 06/20/18 06/20/18 06/20/18 Range/Units 06:28 11:22 11:48 WBC 18.6 H (4.0-11.0) th/mm3 RBC 4.05 L (4.50-5.90) mil/mm3 Hgb 11.2 L (13.0-17.0) gm/dL Hct 34.2 L (39.0-51.0) % MCV 84.6 (80.0-100.0) fL MCH 27.7 (27.0-34.0) pg MCHC 32.7 (32.0-36.0) % RDW 16.6 (11.6-17.2) % Plt Count 648 H (150-450) th/mm3 MPV 8.0 (7.0-11.0) fL Prelim Diff (Auto) Neut % (Auto) 82.2 H (16.0-70.0) % Lymph % (Auto) 10.9 (9.0-44.0) % [place] % (Auto) 6.2 (0.0-8.0) % Eos % (Auto) 0.2 (0.0-4.0) % Baso % (Auto) 0.5 (0.0-2.0) % Neut # (Auto) 15.3 H (1.8-7.7) th/mm3 Lymph # (Auto) 2.0 (1.0-4.8) th/mm3 [place] # (Auto) 1.2 H (0.0-0.9) th/mm3 Eos # (Auto) 0.0 (0.0-0.4) th/mm3 Baso # (Auto) 0.1 (0.0-0.2) th/mm3 WBC Differential . Seg Neuts % (Manual) (16-70) % Band Neuts % (Manual) (0-6) % Lymphocytes % (Manual) (9-44) % Monocytes % (Manual) (0-8) % Basophils % (Manual) (0-2) % Abs Neuts (Manual) (1.8-7.7) th/mm3 Differential Comment Auto diff final Toxic Granulation (None) Platelet Estimate (Normal) Platelet Morphology (Normal) Puncture Site Patient Temperature O2 Saturation (90-100) % ABG pH (7.380-7.420) ABG pCO2 (38-42) mmHg ABG pO2 (61-120) mmHg ABG HCO3 (22-26) mmol/L ABG O2 Content (12.0-20.0) Vol % ABG Base Excess (-2-2) mmol/L ABG Methemoglobin (0-2) % Yasmany Test Hemoglobin (12.0-16.0) G/DL Carboxyhemoglobin (0-4) % O2 Delivery Device Inspired O2 % Critical Value Sodium 130 L (136-145) meq/L Potassium 3.8 (3.5-5.1) meq/L Chloride 93 L (98-107) meq/L Carbon Dioxide 22.3 (21.0-32.0) meq/L Anion Gap 15 (5-15) meq/L BUN 14 (7-18) mg/dL Creatinine 1.26 (0.60-1.30) mg/dL Estimated GFR 62 L (>89) mL/min POC Glucose 297 H (68-110) mg/dl Random Glucose 280 H D (74-106) mg/dL Calcium 8.8 (8.5-10.1) mg/dL Magnesium (1.5-2.5) mg/dL Total Bilirubin (0.2-1.0) mg/dL AST (15-37) U/L ALT (12-78) U/L Alkaline Phosphatase (45-117) U/L Total Protein (6.4-8.2) g/dL Albumin (3.4-5.0) g/dL Lipase (73-393) U/L Beta-Hydroxybutyric Acd (0.00-0.39) mmol/L Urine Color (Yellw/Straw) Urine Clarity (Clear) Urine pH (5.0-8.5) Ur Specific [place] (1.002-1.035) Urine Protein (Neg-Trace) mg/dL Urine Glucose (UA) (Negative) mg/dL Urine Ketones (Negative) mg/dL Urine Occult Blood (Negative) Urine Nitrate (Negative) Urine Bilirubin (Negative) Urine Urobilinogen (Less than 2) mg/dL Ur Leukocyte Esterase (Negative) Urine RBC (0-3) /hpf Urine WBC (0-5) /hpf Micro UA Comment Ur Microscopic Review Urine Culture Comments Nasal Screen MRSA (PCR) (Negative) Imaging Data Radiologist's impression: Abdomen/Pelvis CT 06/18/18 10:25 CONCLUSION: 1. There are no findings to indicate a bowel obstruction. No free air free fluid is identified. 2. There is slight prominence of the base of the appendix measuring 7 mm. This is at the upper limits of normal in size. No definite inflammatory changes are seen. This should be correlated with patient's clinical examination. 3. Mildly enlarged nodes in the inferior aspect of the left inguinal canal the largest node measures 1.5 x 2.4 cm. Venous Doppler Study 06/19/18 00:00 CONCLUSION: 1. No evidence of deep venous thrombosis within the left lower extremity. 2. Subcutaneous fluid collection within the anterior proximal-mid calf area in the region of the recent surgery which measures 16.5 x 1.2 x 5.1 cm. 3. Prominent left inguinal lymph node measuring 4.3 x 0.7 x 2.5 cm Discharge Plan Discharge Disposition Patient Disposition: W/Home Health Service Discharge Condition Condition: Good Discharge Order Discharge Orders: Discharge Order (Routine); Ordered 06/20/18 Ordered By: Casper Seals Physicians Team ED Provider: Kody Coker Primary Care Provider: Jeffy Little Attending Provider: Casper Seals Other Providers: Eugene Brandon ; Paula Khan Status ED Status: Left Department Discharge Information Discharge Date/Time: 06/18/18 13:45
--- NOTE | 2018-06-18 11:33 | CT ---
EXAM DATE: 06/18/2018 11:07 AM EST AGE/SEX: 48 years / Male INDICATIONS: Left upper quadrant pain, nausea and vomiting. CLINICAL DATA: This is the patient's initial encounter. Patient reports that signs and symptoms have been present for 2 days and indicates a pain score of 6/10. MEDICAL/SURGICAL HISTORY: Diabetes. Gastroesophageal reflux disease. None. ORAL CONTRAST: No oral contrast ingested. RADIATION DOSE: 11.79 CTDI (mGy) COMPARISON: [facility], CTA RUNOFF W CONTRAST W 3D, 06/12/2018. . TECHNIQUE: Multiple contiguous axial images were obtained through the abdomen and pelvis following b olus infusion of 96 ml Omnipaque 350 (iohexol) nonionic water-soluble contrast as a single exam dos e. No oral contrast ingested. Using automated exposure control and adjustment of the mA and/or kV ac cording to patient size, radiation dose was kept as low as reasonably achievable to obtain optimal di agnostic quality images. DICOM format image data is available electronically for review and comparis on. FINDINGS: The limited portion of lung base visualized is clear. The appearance of the liver, spleen, pancreas, adrenal glands and kidneys is within normal limits. There is no retroperitoneal lymphadenopathy. No free air free fluid is identified. Evaluation of the visualized loops of small and large bowel demonstrates the colon to be decompressed . No findings to indicate a bowel obstruction are seen. Of note, the appendix is visualized. The base of the appendix is at the limits of normal in size robin uring approximately 7 mm. There are no definite inflammatory changes evident surrounding the appendix . There is no free fluid within the pelvis. No iliac adenopathy is seen. Note is made of some mildly en larged nodes in the left inguinal region. The largest measures 2.4 x 1.5 cm. The visualized bony structures demonstrate degenerative changes in the lower lumbar spine but are oth erwise intact. CONCLUSION: 1. There are no findings to indicate a bowel obstruction. No free air free fluid is identified. 2. There is slight prominence of the base of the appendix measuring 7 mm. This is at the upper limit s of normal in size. No definite inflammatory changes are seen. This should be correlated with patien t's clinical examination. 3. Mildly enlarged nodes in the inferior aspect of the left inguinal canal the largest node measures 1.5 x 2.4 cm. Electronically signed by: Kody Pedraza MD 06/18/2018 11:32 AM EST
[2018-06-18 11:35] LABS: Lymphocytes 5 % (9-44); Monocytes 3 % (0-8)
[2018-06-18 11:36] LABS: Platelet Morphology Normal (Normal); Toxic Granulation 1+
[2018-06-18] MEDS ORDERED: HYDROmorphone PF Inj 2 MG/ML Vial IV.PUSH ONE (12:21)
[2018-06-18] MEDS ORDERED: Piperacil/Tazo 4.5 GM Premix 4.5 GM/100 ML BAG IV.SIG ONE (12:22)
[2018-06-18] MEDS ORDERED: Acetaminophen 325 MG Tablet PO PRN (12:33)
[2018-06-18] MEDS ORDERED: Bisacodyl 10 MG Supp RECTAL PRN (12:33)
[2018-06-18] MEDS ORDERED: Naloxone Inj 0.4 MG/ML Vial IV.PUSH PRN (12:33)
[2018-06-18] MEDS ORDERED: Morphine Inj 4 MG/ML Vial IV.PUSH PRN (12:33)
[2018-06-18] MEDS ORDERED: Methocarbamol 500 MG Tablet PO PRN (12:38)
[2018-06-18] MEDS ORDERED: Ketorolac Inj 30 MG/ML (IVP) Vial IV.PUSH PRN (13:00)
[2018-06-18 13:09] LABS: Bilirubin,Urine Negative (Negative); Clarity,Urine Clear (Clear); Color,Urine Straw (Yellw/Straw); Glucose,Urine (UA) 500 or Greater mg/dL (Negative); Leukocyte Esterase,Urine Negative (Negative); Nitrite,Urine Negative (Negative); Specific Gravity,Urine 1.018 (1.002-1.035)
[2018-06-18 13:19] LABS: ABG Base Excess -6.8 mmol/L (-2-2); ABG PCO2 31 mmHg (38-42); ABG PO2 90 mmHg (61-120)
[2018-06-18] MEDS: Sod Chloride 0.9% Inj 1,000 ML IV.CONT SCH ×2 (14:28→23:19)
--- NOTE | 2018-06-18 14:56 | P.CONGS ---
[facility] Gen Surgery Consult Note Consult date: 06/18/18 Reason for consult: abdominal pain Requesting physician: Kody Coker Narrative: CONSULTATION NOTE FOR SURGICAL ATTENDING, DR. EUGENE BRANDON This is a 48 year old male with a past medical history of type 1 diabetes mellitus and gastroparesis who was just admitted to the hospital last week for I &D of LEFT leg. The patient reports he went home on Monday and was feeling well. He was prescribed antibiotics which he has been taking. He went to bed is his usual state of health last night. He awoke from sleep this morning at 0400 with acute onset of of LUQ abdominal pain, nausea and vomiting. He arrived to the ED for evaluation. A CT abdomen/pelvis was obtained which shows a mildly enlarged appendix. His WBC is elevated. He does report his sugars have been high since his leg infection started. A General Surgery consultation has been requested. 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 Gastroparesis Diabetes GERD (gastroesophageal reflux disease) Gout - Surgical History Surgical History: Surgical History (Last Reviewed 06/18/18 @ 17:04 by LEONEL Aragon) H/O hand surgery Hx of hand surgery - Family History Family History: Family History (Last Reviewed 06/19/18 @ 18:38 by Eugene Brandon MD) Other Family history of diabetes mellitus - Social History I have reviewed the patient's Social History: Yes - Tobacco History Second Hand Smoke Exposure: Yes Tobacco Use In Past 30 Days: Yes Smoking Status: Current every day smoker Tobacco Type: Cigarettes - Alcohol History How Often Do You Have a Drink Containing Alcohol: Monthly or less - Substance Use History Substance History: No History of Abuse - Travel History History of Recent Travel: No Recent Travel in the [place] Within the Last 8 Weeks: No Recent Travel Out of the Country Within the Last 8 Weeks: No - Immunization History Tetanus Immunization: Unsure Medications and Allergies Allergies Allergy/AdvReac Type Severity Reaction Status Date / Time gabapentin AdvReac Burning Verified 06/18/18 10:09 Home Medications Medication Instructions Recorded Confirmed Type insulin lispro [Humalog U-100 15 unit SUBCUT TID 06/08/18 06/18/18 History Insulin] loratadine [Claritin] 10 mg PO DAILY 06/08/18 06/18/18 History naproxen 500 mg PO BID 06/08/18 06/18/18 History omeprazole 20 mg PO BID 06/08/18 06/18/18 History pregabalin [Lyrica] 200 mg PO TID 06/08/18 06/18/18 History Active Medications: Active Medications Acetaminophen (Tylenol) 650 mg PO Q6HR PRN PRN Reason: PAIN SCALE 1 TO 2 Hydrocodone Bitart/Acetaminophen ([place] 5/325) 1 tab PO Q4H PRN PRN Reason: PAIN SCALE 3 TO 5 Al Hydroxide/Mg Hydroxide (Milk Of Magnesia Liq) 30 ml PO Q12H PRN PRN Reason: Mild Constipation Bisacodyl (Dulcolax Supp) 10 mg RECTAL DAILY PRN PRN Reason: SEVERE CONSITIPATION Dicloxacillin Sodium (Dynapen) 500 mg PO Q6H MEIR Sodium Chloride (Ns Inj) 1,000 mls @ 100 mls/hr IV.CONT .Q10H MEIR Last Admin: 06/18/18 14:28 Dose: 100 mls/hr Insulin Detemir (Levemir Inj) 23 unit SQ QPM MEIR Ketorolac Tromethamine (Toradol Inj) 30 mg IV.PUSH Q6H PRN PRN Reason: PAIN 6-10;IF UNABLE TO TAKE PO Stop: 06/23/18 12:59 Lactulose (Lactulose Liq) 30 ml PO DAILY PRN PRN Reason: SEVERE CONSITIPATION Loratadine (Claritin) 10 mg PO DAILY MEIR Methocarbamol (Robaxin) 500 mg PO Q6H PRN PRN Reason: muscle spasm Morphine Sulfate (Morphine Inj) 4 mg IV.PUSH Q3H PRN PRN Reason: BREAKTHROUGH PAIN Naloxone HCl (Narcan Inj) 0.4 mg IV.PUSH UNSCH PRN PRN Reason: SEE LABEL COMMENTS Ondansetron HCl (Zofran Inj) 4 mg IV.PUSH Q6H PRN PRN Reason: NAUSEA OR VOMITING Last Admin: 06/18/18 14:28 Dose: 4 mg Pantoprazole Sodium (Protonix) 20 mg PO BID MEIR Pregabalin (Lyrica) 200 mg PO TID MEIR Sennosides (Senokot) 17.2 mg PO Q12H PRN PRN Reason: Moderate Constipation Sodium Chloride (Ns Flush) 2 ml IV.FLUSH PRN PRN PRN Reason: FLUSH AFTER USING IV ACCESS Exam Vital signs: Vital Signs 06/18/18 10:17 06/18/18 12:03 06/18/18 12:38 Temperature 97.7 F Pulse Rate 92 H 83 Respiratory Rate 21 Blood Pressure 191/94 H 179/85 H Pulse Oximetry 100 97 95 06/18/18 14:34 Temperature 97.9 F Pulse Rate 99 H Respiratory Rate 16 Blood Pressure 161/78 H Pulse Oximetry 97 Intake & Output 06/17/18 06/18/18 06/18/18 18:59 06:59 18:59 Intake Total 1100 / 1100 Balance 1100 / 1100 Weight 92.986 kg Intake: IV 1100 / 1100 Zosyn 4.5 GM Premix 4.5 gm In 100 / 100 100 ml @ 200 mls/hr IV.SIG ONCE ONE Rx#:[id number] NS Inj 1,000 ML @ Wide Open IV. 1000 / 1000 SIG BOLUS ONE Rx#:[id number] Other: Weight On Admission 92.986 kg Narrative: GENERAL: 48 year old male actively vomiting on my arrival. SKIN: Warm and dry. HEAD: Atraumatic. Normocephalic. EYES: Pupils equal and round. No scleral icterus. No injection or drainage. ENT: No nasal bleeding or discharge. Mucous membranes pink and moist. NECK: Trachea midline. CARDIOVASCULAR: Regular rate and rhythm. RESPIRATORY: No accessory muscle use. Clear to auscultation. Breath sounds equal bilaterally. GASTROINTESTINAL: Abdomen soft, non-tender, nondistended. No visible scars or hernias. MUSCULOSKELETAL: Extremities without clubbing, cyanosis, or edema. No obvious deformities. NEUROLOGICAL: Awake and alert. No obvious cranial nerve deficits. Motor grossly within normal limits. Five out of 5 muscle strength in the arms and legs. Normal speech. LEFT lateral leg with dressing in place--- Xeroform over incision---distal to incision the patients leg/ankle/foot are swollen. PSYCHIATRIC: Appropriate mood and affect; insight and judgment normal. Results - Labs 06/19/18 04:16 06/19/18 04:16 Laboratory Results - last 24 hr 06/18/18 06/18/18 06/18/18 10:40 10:40 12:14 WBC 17.7 H RBC 4.46 L Hgb 12.5 L Hct 37.6 L MCV 84.3 MCH 28.1 MCHC 33.3 RDW 16.9 Plt Count 703 H D MPV 8.1 Prelim Diff (Auto) Slide review pending Neut % (Auto) 90.9 H Lymph % (Auto) 4.9 L [place] % (Auto) 3.7 Eos % (Auto) 0.2 Baso % (Auto) 0.3 Neut # (Auto) 16.1 H Lymph # (Auto) 0.9 L [place] # (Auto) 0.6 Eos # (Auto) 0.0 Baso # (Auto) 0.1 WBC Differential Manual diff final Seg Neuts % (Manual) 83 H Band Neuts % (Manual) 8 H Lymphocytes % (Manual) 5 L Monocytes % (Manual) 3 Basophils % (Manual) 1 Abs Neuts (Manual) 16.1 H Differential Comment . Toxic Granulation 1+ H Platelet Estimate High H Platelet Morphology Normal Puncture Site Patient Temperature O2 Saturation ABG pH ABG pCO2 ABG pO2 ABG HCO3 ABG O2 Content ABG Base Excess ABG Methemoglobin Yasmany Test Hemoglobin Carboxyhemoglobin O2 Delivery Device Inspired O2 Critical Value Sodium 134 L Potassium 4.0 Chloride 93 L Carbon Dioxide 20.0 L Anion Gap 21 H BUN 10 Creatinine 1.00 Estimated GFR 80 L Random Glucose 327 H Calcium 9.5 Magnesium 1.8 Total Bilirubin 0.5 AST 25 ALT 28 Alkaline Phosphatase 213 H Total Protein 7.9 D Albumin 2.4 L Lipase 34 L Urine Color Straw Urine Clarity Clear Urine pH 6.0 Ur Specific [place] 1.018 Urine Protein 100 H Urine Glucose (UA) 500 or greater Urine Ketones 80 or greater H Urine Occult Blood Negative Urine Nitrate Negative Urine Bilirubin Negative Urine Urobilinogen Less than 2 Ur Leukocyte Esterase Negative Urine RBC 2 Urine WBC 1 Micro UA Comment Culture not ind Ur Microscopic Review Not Reportable Urine Culture Comments Culture not ind 06/18/18 13:10 WBC RBC Hgb Hct MCV MCH MCHC RDW Plt Count MPV Prelim Diff (Auto) Neut % (Auto) Lymph % (Auto) [place] % (Auto) Eos % (Auto) Baso % (Auto) Neut # (Auto) Lymph # (Auto) [place] # (Auto) Eos # (Auto) Baso # (Auto) WBC Differential Seg Neuts % (Manual) Band Neuts % (Manual) Lymphocytes % (Manual) Monocytes % (Manual) Basophils % (Manual) Abs Neuts (Manual) Differential Comment Toxic Granulation Platelet Estimate Platelet Morphology Puncture Site Right radial Patient Temperature 98.6 O2 Saturation 94 ABG pH 7.37 L ABG pCO2 31 L ABG pO2 90 ABG HCO3 17 L ABG O2 Content 19.7 ABG Base Excess -6.8 L ABG Methemoglobin 0.7 Yasmany Test Present Hemoglobin 14.8 Carboxyhemoglobin 1.0 O2 Delivery Device Ra Inspired O2 21 Critical Value No Sodium Potassium Chloride Carbon Dioxide Anion Gap BUN Creatinine Estimated GFR Random Glucose Calcium Magnesium Total Bilirubin AST ALT Alkaline Phosphatase Total Protein Albumin Lipase Urine Color Urine Clarity Urine pH Ur Specific [place] Urine Protein Urine Glucose (UA) Urine Ketones Urine Occult Blood Urine Nitrate Urine Bilirubin Urine Urobilinogen Ur Leukocyte Esterase Urine RBC Urine WBC Micro UA Comment Ur Microscopic Review Urine Culture Comments - Imaging Imaging: ITS Impressions Abdomen/Pelvis CT 06/18/18 10:25 CONCLUSION: 1. There are no findings to indicate a bowel obstruction. No free air free fluid is identified. 2. There is slight prominence of the base of the appendix measuring 7 mm. This is at the upper limits of normal in size. No definite inflammatory changes are seen. This should be correlated with patient's clinical examination. 3. Mildly enlarged nodes in the inferior aspect of the left inguinal canal the largest node measures 1.[address] scan - abdomen: image reviewed CT scan - pelvis: image reviewed Assessment and Plan - Assessment (1) Nausea & vomiting Code(s): R11.2 - Nausea with vomiting, unspecified Status: Acute Plan: 48 year old male with DM type 1; nausea/vomiting; recently drainage of LEFT leg infection -Unlikely to be appendicitis -ID consult -Reglan added for nausea/vomiting---likely related to gastroparesis -No operative plans at this time -Thank you for this consult - Plan Discussed Condition With: Dr. Roma Mckenzie and Juju Patel RN Mr. Argueta - Attending Attestation CONSULTATION NOTE FOR SURGICAL ATTENDING, DR. EUGENE BRANDON Patient seen and examined Discussed with Dr. Khan of infectious disease His left leg looks a little red to me but he said this is improved since his recent hospitalization He has absolutely no clinical evidence of appendicitis I agree with above assessment and plan. The exam, history, and the medical decision-making described in the above note were completed with the assistance of the mid-level provider. I reviewed and agree with the findings presented. I attest that I had a [id number] encounter with the patient on the same day, and personally performed and documented my assessment and findings in the medical record. The following services were provided during this hospital visit: Chart data review, vital sign assessments/reviewing monitor data Review of consultations notes if present. Medication orders/review and/or management Ordering and/or reviewing lab tests Ordering and/or interpreting/reviewing x-rays and/or diagnostic studies Care of the patient and discussion of the patient with the care team Documentation time To help prompt me to consider important information that might be impacting today's encounter and assessment, Information from prior notes written by myself or my colleagues may have been "brought forward/copy and pasted" into today's note.
[2018-06-18] MEDS ORDERED: Dextrose 50% in Water 50 ML Vial IV.PUSH PRN (17:28)
--- NOTE | 2018-06-18 17:58 | P.HP ---
History of Present Illness Service: Hospitalist Primary Care Physician: Jeffy Little MD Chief Complaint: abdominal pain History of Present Illness: This is a 48-year-old male with a past medical history significant for type 1 diabetes mellitus, gastroparesis and GERD who was admitted to [facility] between 06/12/18 and 06/15/18 with cellulitis, myositis and fasciitis of the left lower extremity. Patient underwent I&D during that admission with operative cultures positive for MSSA. Patient was seen in consultation by infectious disease and was treated with IV oxacillin and discharged with oral Dicloxacillin 500mg po QID to complete for 14 days. Today, patient presented to [facility] ED with complaints of severe left upper quadrant pain. Patient states the pain started around 5:00 this morning. He denies any associated nausea or vomiting at that time. Patient states he actually was trying to induce vomiting because he felt that that would help alleviate his abdominal pain. Patient states that he has had abdominal pain with DKA in the past and that this was different. Once patient came to the ED, he vomited multiple times resulting in resolution of his abdominal pain. At the time that I evaluate the patient, he denies any complaints of nausea vomiting or abdominal pain. He says he believes that the abdominal pain as a result of him being abruptly stopped on his 600 mg Lyrica medication. Patient states he had been constipated due to [place] use but he had a bowel movement yesterday. In the ED, CT of abdomen pelvis was obtained which showed a mildly enlarged appendix. Patient was noted to have elevated white count. He was also noted to have elevated blood sugar of 327. Patient is acidotic with bicarb level of 20 and has an anion gap of 21. General surgery has already evaluated the patient and he is currently n.p.o. for possible surgical intervention. After examining the patient and exiting the room, patient begins to vomit multiple times. 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 Gastroparesis Diabetes GERD (gastroesophageal reflux disease) Gout - Surgical History Surgical History: Surgical History (Last Reviewed 06/18/18 @ 17:26 by Juju Muñoz) H/O hand surgery Hx of hand surgery - Family History Family History: Family History (Last Reviewed 06/18/18 @ 17:26 by Juju Muñoz) Other Family history of diabetes mellitus - Social History I have reviewed the patient's Social History: Yes - Tobacco History Second Hand Smoke Exposure: Yes Tobacco Use In Past 30 Days: Yes Smoking Status: Current every day smoker Tobacco Type: Cigarettes - Alcohol History How Often Do You Have a Drink Containing Alcohol: Monthly or less - Substance Use History Substance History: No History of Abuse - Travel History History of Recent Travel: No Recent Travel in the [place] Within the Last 8 Weeks: No Recent Travel Out of the Country Within the Last 8 Weeks: No - Immunization History Tetanus Immunization: Unsure Medications and Allergies Active Medications: Active Medications Acetaminophen (Tylenol) 650 mg PO Q6HR PRN PRN Reason: PAIN SCALE 1 TO 2 Hydrocodone Bitart/Acetaminophen ([place] 5/325) 1 tab PO Q4H PRN PRN Reason: PAIN SCALE 3 TO 5 Al Hydroxide/Mg Hydroxide (Milk Of Magnesia Liq) 30 ml PO Q12H PRN PRN Reason: Mild Constipation Bisacodyl (Dulcolax Supp) 10 mg RECTAL DAILY PRN PRN Reason: SEVERE CONSITIPATION Dicloxacillin Sodium (Dynapen) 500 mg PO Q6H [facility] Last Admin: 06/18/18 17:02 Dose: 500 mg Sodium Chloride (Ns Inj) 1,000 mls @ 100 mls/hr IV.CONT .Q10H [facility] Last Admin: 06/18/18 14:28 Dose: 100 mls/hr Insulin Detemir (Levemir Inj) 23 unit SQ QPM [facility] Ketorolac Tromethamine (Toradol Inj) 30 mg IV.PUSH Q6H PRN PRN Reason: PAIN 6-10;IF UNABLE TO TAKE PO Stop: 06/23/18 12:59 Lactulose (Lactulose Liq) 30 ml PO DAILY PRN PRN Reason: SEVERE CONSITIPATION Loratadine (Claritin) 10 mg PO DAILY [facility] Methocarbamol (Robaxin) 500 mg PO Q6H PRN PRN Reason: muscle spasm Morphine Sulfate (Morphine Inj) 4 mg IV.PUSH Q3H PRN PRN Reason: BREAKTHROUGH PAIN Naloxone HCl (Narcan Inj) 0.4 mg IV.PUSH UNSCH PRN PRN Reason: SEE LABEL COMMENTS Ondansetron HCl (Zofran Inj) 4 mg IV.PUSH Q6H PRN PRN Reason: NAUSEA OR VOMITING Last Admin: 06/18/18 14:28 Dose: 4 mg Pantoprazole Sodium (Protonix) 20 mg PO BID [facility] Pregabalin (Lyrica) 200 mg PO TID [facility] Last Admin: 06/18/18 17:03 Dose: 200 mg Sennosides (Senokot) 17.2 mg PO Q12H PRN PRN Reason: Moderate Constipation Sodium Chloride (Ns Flush) 2 ml IV.FLUSH PRN PRN PRN Reason: FLUSH AFTER USING IV ACCESS Allergies Allergy/AdvReac Type Severity Reaction Status Date / Time gabapentin AdvReac Burning Verified 06/18/18 10:09 Home Medications Medication Instructions Recorded Confirmed Type insulin lispro [Humalog U-100 15 unit SUBCUT TID 06/08/18 06/18/18 History Insulin] loratadine [Claritin] 10 mg PO DAILY 06/08/18 06/18/18 History naproxen 500 mg PO BID 06/08/18 06/18/18 History omeprazole 20 mg PO BID 06/08/18 06/18/18 History pregabalin [Lyrica] 200 mg PO TID 06/08/18 06/18/18 History Exam Vital signs: Vital Signs 06/18/18 10:17 06/18/18 12:03 06/18/18 12:38 Temperature 97.7 F Pulse Rate 92 H 83 Respiratory Rate 21 Blood Pressure 191/94 H 179/85 H Pulse Oximetry 100 97 95 06/18/18 14:34 Temperature 97.9 F Pulse Rate 99 H Respiratory Rate 16 Blood Pressure 161/78 H Pulse Oximetry 97 Intake & Output 06/17/18 06/18/18 06/18/18 18:59 06:59 18:59 Intake Total 1100 / 1100 Balance 1100 / 1100 Weight 92.986 kg Intake: IV 1100 / 1100 Zosyn 4.5 GM Premix 4.5 gm In 100 / 100 100 ml @ 200 mls/hr IV.SIG ONCE ONE Rx#:[id number] NS Inj 1,000 ML @ Wide Open IV. 1000 / 1000 SIG BOLUS ONE Rx#:[id number] Other: Weight On Admission 92.986 kg Narrative: GENERAL: WDWN male patient, INAD. Awake and alert. SKIN: Warm and dry. LLE with mild erythema distally and well healing surgical incision over inner aspect of lower leg with dorene intact. No active drainage noted. Smal 1-2mm open area just distal to incision with no active drainage but dressing saturated with serous fluid. HEAD: Atraumatic. Normocephalic. EYES: Pupils equal and round. No scleral icterus. No injection or drainage. ENT: No nasal bleeding or discharge. Mucous membranes pink and moist. NECK: Trachea midline. CARDIOVASCULAR: Regular rate and rhythm. RESPIRATORY: No accessory muscle use. Clear to auscultation. Breath sounds equal bilaterally. GASTROINTESTINAL: Abdomen soft, non-tender, nondistended. Hypoactive BS. MUSCULOSKELETAL: Extremities without clubbing or cyanosis. +1+ pitting edema LLE. No obvious deformities. NEUROLOGICAL: Awake and alert. No obvious cranial nerve deficits. Motor grossly within normal limits. Able to move all extremities spontaneously. Normal speech. PSYCHIATRIC: Calm and cooperative. Results - Labs CBC & Chem 7: 06/18/18 10:40 06/18/18 10:40 Labs: Laboratory Results - last 24 hr 06/18/18 06/18/18 06/18/18 10:40 10:40 12:14 WBC 17.7 H RBC 4.46 L Hgb 12.5 L Hct 37.6 L MCV 84.3 MCH 28.1 MCHC 33.3 RDW 16.9 Plt Count 703 H D MPV 8.1 Prelim Diff (Auto) Slide review pending Neut % (Auto) 90.9 H Lymph % (Auto) 4.9 L Dickson % (Auto) 3.7 Eos % (Auto) 0.2 Baso % (Auto) 0.3 Neut # (Auto) 16.1 H Lymph # (Auto) 0.9 L Dickson # (Auto) 0.6 Eos # (Auto) 0.0 Baso # (Auto) 0.1 WBC Differential Manual diff final Seg Neuts % (Manual) 83 H Band Neuts % (Manual) 8 H Lymphocytes % (Manual) 5 L Monocytes % (Manual) 3 Basophils % (Manual) 1 Abs Neuts (Manual) 16.1 H Differential Comment . Toxic Granulation 1+ H Platelet Estimate High H Platelet Morphology Normal Puncture Site Patient Temperature O2 Saturation ABG pH ABG pCO2 ABG pO2 ABG HCO3 ABG O2 Content ABG Base Excess ABG Methemoglobin Yasmany Test Hemoglobin Carboxyhemoglobin O2 Delivery Device Inspired O2 Critical Value Sodium 134 L Potassium 4.0 Chloride 93 L Carbon Dioxide 20.0 L Anion Gap 21 H BUN 10 Creatinine 1.00 Estimated GFR 80 L Random Glucose 327 H Calcium 9.5 Magnesium 1.8 Total Bilirubin 0.5 AST 25 ALT 28 Alkaline Phosphatase 213 H Total Protein 7.9 D Albumin 2.4 L Lipase 34 L Urine Color Straw Urine Clarity Clear Urine pH 6.0 Ur Specific [place] 1.018 Urine Protein 100 H Urine Glucose (UA) 500 or greater Urine Ketones 80 or greater H Urine Occult Blood Negative Urine Nitrate Negative Urine Bilirubin Negative Urine Urobilinogen Less than 2 Ur Leukocyte Esterase Negative Urine RBC 2 Urine WBC 1 Micro UA Comment Culture not ind Ur Microscopic Review Not Reportable Urine Culture Comments Culture not ind 06/18/18 13:10 WBC RBC Hgb Hct MCV MCH MCHC RDW Plt Count MPV Prelim Diff (Auto) Neut % (Auto) Lymph % (Auto) Dickson % (Auto) Eos % (Auto) Baso % (Auto) Neut # (Auto) Lymph # (Auto) Dickson # (Auto) Eos # (Auto) Baso # (Auto) WBC Differential Seg Neuts % (Manual) Band Neuts % (Manual) Lymphocytes % (Manual) Monocytes % (Manual) Basophils % (Manual) Abs Neuts (Manual) Differential Comment Toxic Granulation Platelet Estimate Platelet Morphology Puncture Site Right radial Patient Temperature 98.6 O2 Saturation 94 ABG pH 7.37 L ABG pCO2 31 L ABG pO2 90 ABG HCO3 17 L ABG O2 Content 19.7 ABG Base Excess -6.8 L ABG Methemoglobin 0.7 Yasmany Test Present Hemoglobin 14.8 Carboxyhemoglobin 1.0 O2 Delivery Device Ra Inspired O2 21 Critical Value No Sodium Potassium Chloride Carbon Dioxide Anion Gap BUN Creatinine Estimated GFR Random Glucose Calcium Magnesium Total Bilirubin AST ALT Alkaline Phosphatase Total Protein Albumin Lipase Urine Color Urine Clarity Urine pH Ur Specific Mcrae [place] Urine Protein Urine Glucose (UA) Urine Ketones Urine Occult Blood Urine Nitrate Urine Bilirubin Urine Urobilinogen Ur Leukocyte Esterase Urine RBC Urine WBC Micro UA Comment Ur Microscopic Review Urine Culture Comments - Imaging Impressions Abdomen/Pelvis CT 06/18/18 10:25 CONCLUSION: 1. There are no findings to indicate a bowel obstruction. No free air free fluid is identified. 2. There is slight prominence of the base of the appendix measuring 7 mm. This is at the upper limits of normal in size. No definite inflammatory changes are seen. This should be correlated with patient's clinical examination. 3. Mildly enlarged nodes in the inferior aspect of the left inguinal canal the largest node measures 1.5 x 2.4 cm. Caprini VTE Risk Assessment Caprini VTE Risk Assessment: No/Low Risk (score <= 1) Caprini Risk Assessment Model: Point Value = 1 Point Value = 2 Point Value = 3 Point Value = 5 Age 41-60 Minor surgery BMI > 25 kg/m2 Swollen legs Varicose veins or History of unexplained or recurrent spontaneous Oral contraceptives or hormone replacement Sepsis (< 1 month) Serious lung disease, including pneumonia (< 1 month) Abnormal pulmonary function Acute myocardial infarction Congestive heart failure (< 1 month) History of inflammatory bowel disease Medical patient at bed rest Age 61-74 Arthroscopic surgery Major open surgery (> 45 min) Laparoscopic surgery (> 45 min) Malignancy Confined to bed (> 72 hours) Immobilizing plaster cast Central venous access Age >= 75 History of VTE Family history of VTE Factor V Leiden Prothrombin [id number] Lupus anticoagulant Anticardiolipin antibodies Elevated serum homocysteine Heparin-induced thrombocytopenia Other congenital or acquired thrombophilia Stroke (< 1 month) Elective arthroplasty Hip, pelvis, or leg fracture Acute spinal cord injury (< 1 month) Prophylaxis Regimen: Total Risk Factor Score Risk Level Prophylaxis Regimen 0-1 Low Early ambulation 2 Moderate Order ONE of the following: *Sequential Compression Device (SCD) *Heparin 5000 units SQ BID 3-4 Higher Order ONE of the following medications: *Heparin 5000 units SQ TID *Enoxaparin/Lovenox 40 mg SQ daily (WT < 150 kg, CrCl > 30 mL/min) *Enoxaparin/Lovenox 30 mg SQ daily (WT < 150 kg, CrCl > 10-29 mL/min) *Enoxaparin/Lovenox 30 mg SQ BID (WT < 150 kg, CrCl > 30 mL/min) AND/OR *Sequential Compression Device (SCD) 5 or more Highest Order ONE of the following medications: *Heparin 5000 units SQ TID (Preferred with Epidurals) *Enoxaparin/Lovenox 40 mg SQ daily (WT < 150 kg, CrCl > 30 mL/min) *Enoxaparin/Lovenox 30 mg SQ daily (WT < 150 kg, CrCl > 10-29 mL/min) *Enoxaparin/Lovenox 30 mg SQ BID (WT < 150 kg, CrCl > 30 mL/min) AND *Sequential Compression Device (SCD) Assessment and Plan - Plan 48yo male with type 1 diabetes, gastroparesis, GERD, recent admission and surgical intervention for cellulitis/myositis/fasciitis of the left lower extremity admitted with nausea, vomiting and abdominal pain N/V, abdominal pain CT the abdomen and pelvis shows slight prominence of the base of the appendix measuring 7 mm Possibly due to diabetic associated gastroparesis ?appendicitis -General surgery following, appreciate assistance/recommendations -Diet per general surgery -IV antiemetics as needed -Trial of IV Reglan Metabolic anion gap acidosis Suspect secondary to nausea and vomiting -IVF ordered -Repeat labs in a.m. Leukocytosis, suspect stress/reactive -Patient is afebrile. He does not appear septic. -continue on antibiotics per home regimen -Repeat CBC in a.m. Type 1 diabetes Poorly controlled blood sugars -We will initiate Accu-Cheks and insulin sliding scale -We will resume patient's home dose of insulin once cleared for diet by general surgery Cellulitis/myositis/fasciitis left lower extremity, status post I&D -Will begin IV Oxacillin while NPO. -Will d/c IV abx and resume po Dicloxacillin 500mg po q6h per ID's recommendations at discharge once able to eat -Pain management with bowel regimen LLE edema suspect secondary to recent infection surgical intervention -We will obtain Doppler ultrasound of the left lower extremity to rule out DVT DVT prophylaxis -We will hold chemical prophylaxis at this time secondary to possible surgical intervention Code Status: Full Discussed Condition With: patient, nursing staff, Dr. Mckenzie
[2018-06-18] MEDS ORDERED: Insulin Detemir Inj 1,000 UNIT/10 ML Vial SQ SCH (18:00)
[2018-06-18] MEDS: Insulin NovoLOG Aspart Correctional Sugar Inj SQ SCH ×2 (18:41→23:18)
--- NOTE | 2018-06-18 19:48 | P.CONID ---
History of Present Illness Service: ID Consult date: 06/18/18 Requesting Physician: Eugene Brandon Reason for Consult: leukocytosis Primary Care Provider: Jeffy Little MD Chief Complaint: abdominal pain History of Present Illness: 48 yo diabetic male with diabetes melitus type I know to me from previous hospialisation last week for L deep tissue calf bscess pt underwent I+D op clx + for MSSA he was initially treated with oxacillin and discharged on dicloxacillin no fever, chills, nightsweats came back with dispepsia CT scan failrly unremarkable denies diarrhea WBC are 17. 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 Gastroparesis Diabetes GERD (gastroesophageal reflux disease) Gout - Surgical History Surgical History: Surgical History (Last Reviewed 06/19/18 @ 00:54 by Paula Khan MD) H/O hand surgery Hx of hand surgery - Family History Family History: Family History (Last Reviewed 06/19/18 @ 00:54 by Paula Khan MD) Other Family history of diabetes mellitus - Social History I have reviewed the patient's Social History: Yes - Tobacco History Second Hand Smoke Exposure: Yes Tobacco Use In Past 30 Days: Yes Smoking Status: Current every day smoker Tobacco Type: Cigarettes - Alcohol History How Often Do You Have a Drink Containing Alcohol: Monthly or less - Substance Use History Substance History: No History of Abuse - Travel History History of Recent Travel: No Recent Travel in the [place] Within the Last 8 Weeks: No Recent Travel Out of the Country Within the Last 8 Weeks: No - Immunization History Tetanus Immunization: Unsure Medications and Allergies Active Medications: Active Medications Acetaminophen (Tylenol) 650 mg PO Q6HR PRN PRN Reason: PAIN SCALE 1 TO 2 Hydrocodone Bitart/Acetaminophen ([place] 5/325) 1 tab PO Q4H PRN PRN Reason: PAIN SCALE 3 TO 5 Al Hydroxide/Mg Hydroxide (Milk Of Magnesia Liq) 30 ml PO Q12H PRN PRN Reason: Mild Constipation Bisacodyl (Dulcolax Supp) 10 mg RECTAL DAILY PRN PRN Reason: SEVERE CONSITIPATION Dextrose (D50w Vial) 50 ml IV.PUSH UNSCH PRN PRN Reason: PER HYPOGLYCEMIA PROTOCOL Dicloxacillin Sodium (Dynapen) 500 mg PO Q6H [facility] Last Admin: 06/18/18 17:02 Dose: 500 mg Glucagon (Glucagon Inj) 1 mg OTHER PRN PRN PRN Reason: for Hypoglycemia Protocol Sodium Chloride (Ns Inj) 1,000 mls @ 100 mls/hr IV.CONT .Q10H [facility] Last Admin: 06/18/18 14:28 Dose: 100 mls/hr Oxacillin Sodium 2 gm/ Sodium (Chloride) 100 mls @ 200 mls/hr IV.SIG Q4H [facility] Insulin Aspart (Novolog Insulin Correctional Sugar Inj) 0 unit SQ ACHS [facility]; Protocol Last Admin: 06/18/18 18:41 Dose: 9 unit Insulin Detemir (Levemir Inj) 23 unit SQ QPM [facility] Last Admin: 06/18/18 18:35 Dose: Not Given Ketorolac Tromethamine (Toradol Inj) 30 mg IV.PUSH Q6H PRN PRN Reason: PAIN 6-10;IF UNABLE TO TAKE PO Stop: 06/23/18 12:59 Lactulose (Lactulose Liq) 30 ml PO DAILY PRN PRN Reason: SEVERE CONSITIPATION Loratadine (Claritin) 10 mg PO DAILY [facility] Methocarbamol (Robaxin) 500 mg PO Q6H PRN PRN Reason: muscle spasm Metoclopramide HCl (Reglan Inj) 10 mg IV.PUSH Q8H [facility]; Protocol Stop: 06/20/18 10:01 Last Admin: 06/18/18 18:35 Dose: 10 mg Morphine Sulfate (Morphine Inj) 4 mg IV.PUSH Q3H PRN PRN Reason: BREAKTHROUGH PAIN Naloxone HCl (Narcan Inj) 0.4 mg IV.PUSH UNSCH PRN PRN Reason: SEE LABEL COMMENTS Ondansetron HCl (Zofran Inj) 4 mg IV.PUSH Q6H PRN PRN Reason: NAUSEA OR VOMITING Last Admin: 06/18/18 14:28 Dose: 4 mg Pantoprazole Sodium (Protonix) 20 mg PO BID [facility] Pregabalin (Lyrica) 200 mg PO TID [facility] Last Admin: 06/18/18 17:03 Dose: 200 mg Prochlorperazine Edisylate (Compazine Inj) 10 mg IV.PUSH Q6H PRN PRN Reason: NAUSEA OR VOMITING Sennosides (Senokot) 17.2 mg PO Q12H PRN PRN Reason: Moderate Constipation Sodium Chloride (Ns Flush) 2 ml IV.FLUSH PRN PRN PRN Reason: FLUSH AFTER USING IV ACCESS Allergies Allergy/AdvReac Type Severity Reaction Status Date / Time gabapentin AdvReac Burning Verified 06/18/18 10:09 Home Medications Medication Instructions Recorded Confirmed Type insulin lispro [Humalog U-100 15 unit SUBCUT TID 06/08/18 06/18/18 History Insulin] loratadine [Claritin] 10 mg PO DAILY 06/08/18 06/18/18 History naproxen 500 mg PO BID 06/08/18 06/18/18 History omeprazole 20 mg PO BID 06/08/18 06/18/18 History pregabalin [Lyrica] 200 mg PO TID 06/08/18 06/18/18 History Exam Vital signs: Vital Signs 06/18/18 10:17 06/18/18 12:03 06/18/18 12:38 Temperature 97.7 F Pulse Rate 92 H 83 Respiratory Rate 21 Blood Pressure 191/94 H 179/85 H Pulse Oximetry 100 97 95 06/18/18 14:34 Temperature 97.9 F Pulse Rate 99 H Respiratory Rate 16 Blood Pressure 161/78 H Pulse Oximetry 97 Intake & Output 06/18/18 06/18/18 06/19/18 06:59 18:59 06:59 Intake Total 1100 / 1100 Output Total 800 / 800 Balance 300 / 300 Weight 92.986 kg Intake: IV 1100 / 1100 Zosyn 4.5 GM Premix 4.5 gm In 100 / 100 100 ml @ 200 mls/hr IV.SIG ONCE ONE Rx#:[id number] NS Inj 1,000 ML @ Wide Open IV. 1000 / 1000 SIG BOLUS ONE Rx#:[id number] Output: Urine 800 / 800 Other: # Emeses 4 Weight On Admission 92.986 kg - Constitutional no acute distress, average body habitus - Routine HEENT Exam Head: Present: normocephalic, atraumatic Eye: Present: EOMI, PERRL. Absent: conjunctival icterus ENT: Present: mucous membranes moist, oropharynx clear - Routine Neck Exam Present: supple, full ROM. Absent: lymphadenopathy - Routine Respiratory Exam Present: CTA bilaterally. Absent: accessory muscle use, decreased breath sounds , rhonchi - Routine Cardiovascular Exam Present: RRR, S1, S2. Absent: murmur, gallop, rubs - Routine Abdominal Exam Present: soft, normoactive bowel sounds, distended. Absent: tenderness, organomegaly, mass - Routine Extremities Exam Present: edema (LLE ). Absent: cyanosis, clubbing - Detailed Lower Extremity Exam Upper leg: Left: swelling, tenderness, wound, erythema, Right: normal inspection Lower leg: Left swelling (2+ - soft, improved from last time I saw pt. No induration), Left tenderness (mild), Left wound (clean and dry incision, dorene in, prev REGINALD drain site with mnimal bloody dc), Left erythema (minimal), Right normal inspection - Routine Skin Exam Present: dry. Absent: jaundice, rash - Routine Neurological Exam Present: alert, oriented X3, CN II-XII intact. Absent: sensory deficit, motor deficit - Routine Psychiatric Exam Present: normal affect, cooperative Results - Labs CBC & Chem 7: 06/18/18 10:40 06/18/18 10:40 Labs: Laboratory Results - last 24 hr 06/18/18 06/18/18 06/18/18 10:40 10:40 10:40 WBC 17.7 H RBC 4.46 L Hgb 12.5 L Hct 37.6 L MCV 84.3 MCH 28.1 MCHC 33.3 RDW 16.9 Plt Count 703 H D MPV 8.1 Prelim Diff (Auto) Slide review pending Neut % (Auto) 90.9 H Lymph % (Auto) 4.9 L [place] % (Auto) 3.7 Eos % (Auto) 0.2 Baso % (Auto) 0.3 Neut # (Auto) 16.1 H Lymph # (Auto) 0.9 L [place] # (Auto) 0.6 Eos # (Auto) 0.0 Baso # (Auto) 0.1 WBC Differential Manual diff final Seg Neuts % (Manual) 83 H Band Neuts % (Manual) 8 H Lymphocytes % (Manual) 5 L Monocytes % (Manual) 3 Basophils % (Manual) 1 Abs Neuts (Manual) 16.1 H Differential Comment . Toxic Granulation 1+ H Platelet Estimate High H Platelet Morphology Normal Puncture Site Patient Temperature O2 Saturation ABG pH ABG pCO2 ABG pO2 ABG HCO3 ABG O2 Content ABG Base Excess ABG Methemoglobin Yasmany Test Hemoglobin Carboxyhemoglobin O2 Delivery Device Inspired O2 Critical Value Sodium 134 L Potassium 4.0 Chloride 93 L Carbon Dioxide 20.0 L Anion Gap 21 H BUN 10 Creatinine 1.00 Estimated GFR 80 L POC Glucose Random Glucose 327 H Calcium 9.5 Magnesium 1.8 Total Bilirubin 0.5 AST 25 ALT 28 Alkaline Phosphatase 213 H Total Protein 7.9 D Albumin 2.4 L Lipase 34 L Beta-Hydroxybutyric Acd 6.70 H Urine Color Urine Clarity Urine pH Ur Specific [place] Urine Protein Urine Glucose (UA) Urine Ketones Urine Occult Blood Urine Nitrate Urine Bilirubin Urine Urobilinogen Ur Leukocyte Esterase Urine RBC Urine WBC Micro UA Comment Ur Microscopic Review Urine Culture Comments 06/18/18 06/18/18 06/18/18 12:14 13:10 18:12 WBC RBC Hgb Hct MCV MCH MCHC RDW Plt Count MPV Prelim Diff (Auto) Neut % (Auto) Lymph % (Auto) [place] % (Auto) Eos % (Auto) Baso % (Auto) Neut # (Auto) Lymph # (Auto) [place] # (Auto) Eos # (Auto) Baso # (Auto) WBC Differential Seg Neuts % (Manual) Band Neuts % (Manual) Lymphocytes % (Manual) Monocytes % (Manual) Basophils % (Manual) Abs Neuts (Manual) Differential Comment Toxic Granulation Platelet Estimate Platelet Morphology Puncture Site Right radial Patient Temperature 98.6 O2 Saturation 94 ABG pH 7.37 L ABG pCO2 31 L ABG pO2 90 ABG HCO3 17 L ABG O2 Content 19.7 ABG Base Excess -6.8 L ABG Methemoglobin 0.7 Yasmany Test Present Hemoglobin 14.8 Carboxyhemoglobin 1.0 O2 Delivery Device Ra Inspired O2 21 Critical Value No Sodium Potassium Chloride Carbon Dioxide Anion Gap BUN Creatinine Estimated GFR POC Glucose 380 H Random Glucose Calcium Magnesium Total Bilirubin AST ALT Alkaline Phosphatase Total Protein Albumin Lipase Beta-Hydroxybutyric Acd Urine Color Straw Urine Clarity Clear Urine pH 6.0 Ur Specific [place] 1.018 Urine Protein 100 H Urine Glucose (UA) 500 or greater Urine Ketones 80 or greater H Urine Occult Blood Negative Urine Nitrate Negative Urine Bilirubin Negative Urine Urobilinogen Less than 2 Ur Leukocyte Esterase Negative Urine RBC 2 Urine WBC 1 Micro UA Comment Culture not ind Ur Microscopic Review Not Reportable Urine Culture Comments Culture not ind - Imaging Impressions Abdomen/Pelvis CT 06/18/18 10:25 CONCLUSION: 1. There are no findings to indicate a bowel obstruction. No free air free fluid is identified. 2. There is slight prominence of the base of the appendix measuring 7 mm. This is at the upper limits of normal in size. No definite inflammatory changes are seen. This should be correlated with patient's clinical examination. 3. Mildly enlarged nodes in the inferior aspect of the left inguinal canal the largest node measures 1.5 x 2.4 cm. Assessment and Plan - Plan Left calf abscess, MSSA: improving dw orhto: no joint ivoovment, no necrotic muscle or fascia s/p I+D Leukocytosis: improving, though still high Blood clx negative Here for upper abdominal discomfort, nausea - surg ethiology essentially r/o ? dicloxaciLLIn cont IV oxacillin anticipate to change back oral abx: KEFLEX 500 mg PO qid to complete 14 days course from the day of surgery ( carlos hook 06/26) fu with Dr Prabhakar
[2018-06-18] MEDS: Pantoprazole Sodium 20 MG DR Tablet PO SCH (20:52)
[2018-06-18] MEDS ORDERED: Insulin NovoLOG Aspart Correctional Sugar Inj SQ SCH (21:00)
[2018-06-19 05:18] LABS: Baso % (Auto) 0.2 % (0.0-2.0); Hematocrit 36.8 % (39.0-51.0); Lymph # (Auto) 1.2 th/mm3 (1.0-4.8); Lymph % (Auto) 6.6 % (9.0-44.0); Mean Corpuscular HGB Conc 32.5 % (32.0-36.0); Mean Corpuscular Hemoglobin 27.7 pg (27.0-34.0); Mean Corpuscular Volume 85.3 fL (80.0-100.0); Mono # (Auto) 1.1 th/mm3 (0.0-0.9); Neut # (Auto) 16.3 th/mm3 (1.8-7.7); Neut % (Auto) 87.2 % (16.0-70.0); Platelet Count 700 th/mm3 (150-450); Red Blood Count 4.31 mil/mm3 (4.50-5.90); Red Cell Distribution Width 16.7 % (11.6-17.2); White Blood Count 18.7 th/mm3 (4.0-11.0)
[2018-06-19 05:34] LABS: Calcium 8.9 mg/dL (8.5-10.1); Carbon Dioxide 15.3 meq/L (21.0-32.0); Potassium 4.5 meq/L (3.5-5.1)
[2018-06-19] MEDS: Insulin NovoLOG Aspart Correctional Sugar Inj SQ SCH ×5 (09:14→21:00)
[2018-06-19] MEDS ORDERED: Sod Chloride 0.9% Inj 1,000 ML IV.SIG SCH (09:15)
[2018-06-19] MEDS: Pantoprazole Sodium 20 MG DR Tablet PO SCH (09:24)
[2018-06-19] MEDS: Loratadine 10 MG Tablet PO SCH (09:25)
--- NOTE | 2018-06-19 09:31 | US ---
EXAM DATE: 06/19/2018 9:24 AM EST AGE/SEX: 48 years / Male INDICATIONS: Post surgical leg pain and swelling. CLINICAL DATA: This is the patient's subsequent encounter. Patient reports that signs and symptoms h ave been present for 1 week and indicates a pain score of 1/10. MEDICAL/SURGICAL HISTORY: . Diabetes mellitus type I. Gastroesophageal reflux disease. Gout. . Left leg I&D. COMPARISON: [facility] – [place], [place] VENOUS DOPPLER LEG LEFT, 06/11/2018. . TECHNIQUE: Venous ultrasound of both lower extremities was performed from the inguinal ligament to t he proximal calf. Real-time, color Doppler and spectral tracing, compression and augmentation techni ques were used. FINDINGS: Normal compression of the deep venous system from the inguinal region to the proximal calf . No echogenic clot is seen. Normal response of the venous system to augmentation and respiration. Th ere is enlarged left inguinal lymph node measuring 4.3 x 0.7 x 2.5 cm. There is also a large subcutan eous fluid collection within the anterior proximal-mid calf area in the region of the recent surgery which measures 16.5 x 1.2 x 5.1 cm. CONCLUSION: 1. No evidence of deep venous thrombosis within the left lower extremity. 2. Subcutaneous fluid collection within the anterior proximal-mid calf area in the region of the rec ent surgery which measures 16.5 x 1.2 x 5.1 cm. 3. Prominent left inguinal lymph node measuring 4.3 x 0.7 x 2.5 cm Electronically signed by: Javier Neely MD 06/19/2018 9:29 AM EST
[2018-06-19] MEDS ORDERED: Potassium Chlor 40 mEq Premix 40 MEQ/100 ML PIGGYBACK IV.SIG PRN ×2 (09:46)
[2018-06-19] MEDS ORDERED: Sodium Phosphate Inj 15 MMOL in Sodium Chlor 0.9% Inj 100 ML IV.SIG PRN (09:46)
[2018-06-19] MEDS ORDERED: Potassium Chlor 20 mEq Premix 20 MEQ/100 ML PIGGYBACK IV.SIG PRN ×6 (09:46)
--- NOTE | 2018-06-19 10:08 | P.PNIM ---
Subjective Interval history: Patient is having persistent nausea and vomiting. Blood glucose over 400 and widening AG. He is in DKA. Physical Exam Vital signs: Vital Signs 06/18/18 10:17 06/18/18 12:03 06/18/18 12:38 Temperature 97.7 F Pulse Rate 92 H 83 Respiratory Rate 21 Blood Pressure 191/94 H 179/85 H Pulse Oximetry 100 97 95 06/18/18 14:34 06/18/18 20:00 06/19/18 00:00 Temperature 97.9 F 98.2 F Pulse Rate 99 H 72 82 Respiratory Rate 16 20 18 Blood Pressure 161/78 H 142/74 H 174/58 H Pulse Oximetry 97 98 06/19/18 04:00 06/19/18 07:45 06/19/18 08:00 Temperature 97.9 F 97.4 F L Pulse Rate 86 100 H Respiratory Rate 22 16 Blood Pressure 132/72 158/76 H Pulse Oximetry 92 L 99 Intake & Output 06/18/18 06/19/18 06/19/18 18:59 06:59 18:59 Intake Total 1100 / 1100 1300 / 1300 100 / 100 Output Total 800 / 800 Balance 300 / 300 1300 / 1300 100 / 100 Weight 92.986 kg Intake: IV 1100 / 1100 1300 / 1300 100 / 100 NS Inj 1,000 ML @ 100 mls/hr IV 1000 / 1000 .CONT .Q10H [facility] Rx#:[id number] Prostaphlin Inj 2 GM In NS Inj 300 / 300 100 / 100 100 ML @ 200 mls/hr IV.SIG Q4H [facility] Rx#:[id number] Zosyn 4.5 GM Premix 4.5 gm In 100 / 100 100 ml @ 200 mls/hr IV.SIG ONCE ONE Rx#:[id number] NS Inj 1,000 ML @ Wide Open IV. 1000 / 1000 SIG BOLUS ONE Rx#:[id number] Output: Urine 800 / 800 Other: Date of Last Bowel Movement 06/18/18 # Emeses 4 Weight On Admission 92.986 kg Results - Labs CBC & Chem 7: 06/19/18 04:16 06/19/18 04:16 Laboratory Results - last 24 hr 06/18/18 06/18/18 06/18/18 10:40 10:40 10:40 WBC 17.7 H RBC 4.46 L Hgb 12.5 L Hct 37.6 L MCV 84.3 MCH 28.1 MCHC 33.3 RDW 16.9 Plt Count 703 H D MPV 8.1 Prelim Diff (Auto) Slide review pending Neut % (Auto) 90.9 H Lymph % (Auto) 4.9 L [place] % (Auto) 3.7 Eos % (Auto) 0.2 Baso % (Auto) 0.3 Neut # (Auto) 16.1 H Lymph # (Auto) 0.9 L [place] # (Auto) 0.6 Eos # (Auto) 0.0 Baso # (Auto) 0.1 WBC Differential Manual diff final Seg Neuts % (Manual) 83 H Band Neuts % (Manual) 8 H Lymphocytes % (Manual) 5 L Monocytes % (Manual) 3 Basophils % (Manual) 1 Abs Neuts (Manual) 16.1 H Differential Comment . Toxic Granulation 1+ H Platelet Estimate High H Platelet Morphology Normal Puncture Site Patient Temperature O2 Saturation ABG pH ABG pCO2 ABG pO2 ABG HCO3 ABG O2 Content ABG Base Excess ABG Methemoglobin Yasmany Test Hemoglobin Carboxyhemoglobin O2 Delivery Device Inspired O2 Critical Value Sodium 134 L Potassium 4.0 Chloride 93 L Carbon Dioxide 20.0 L Anion Gap 21 H BUN 10 Creatinine 1.00 Estimated GFR 80 L POC Glucose Random Glucose 327 H Calcium 9.5 Magnesium 1.8 Total Bilirubin 0.5 AST 25 ALT 28 Alkaline Phosphatase 213 H Total Protein 7.9 D Albumin 2.4 L Lipase 34 L Beta-Hydroxybutyric Acd 6.70 H Urine Color Urine Clarity Urine pH Ur Specific [place] Urine Protein Urine Glucose (UA) Urine Ketones Urine Occult Blood Urine Nitrate Urine Bilirubin Urine Urobilinogen Ur Leukocyte Esterase Urine RBC Urine WBC Micro UA Comment Ur Microscopic Review Urine Culture Comments 06/18/18 06/18/18 06/18/18 12:14 13:10 18:12 WBC RBC Hgb Hct MCV MCH MCHC RDW Plt Count MPV Prelim Diff (Auto) Neut % (Auto) Lymph % (Auto) [place] % (Auto) Eos % (Auto) Baso % (Auto) Neut # (Auto) Lymph # (Auto) [place] # (Auto) Eos # (Auto) Baso # (Auto) WBC Differential Seg Neuts % (Manual) Band Neuts % (Manual) Lymphocytes % (Manual) Monocytes % (Manual) Basophils % (Manual) Abs Neuts (Manual) Differential Comment Toxic Granulation Platelet Estimate Platelet Morphology Puncture Site Right radial Patient Temperature 98.6 O2 Saturation 94 ABG pH 7.37 L ABG pCO2 31 L ABG pO2 90 ABG HCO3 17 L ABG O2 Content 19.7 ABG Base Excess -6.8 L ABG Methemoglobin 0.7 Yasmany Test Present Hemoglobin 14.8 Carboxyhemoglobin 1.0 O2 Delivery Device Ra Inspired O2 21 Critical Value No Sodium Potassium Chloride Carbon Dioxide Anion Gap BUN Creatinine Estimated GFR POC Glucose 380 H Random Glucose Calcium Magnesium Total Bilirubin AST ALT Alkaline Phosphatase Total Protein Albumin Lipase Beta-Hydroxybutyric Acd Urine Color Straw Urine Clarity Clear Urine pH 6.0 Ur Specific [place] 1.018 Urine Protein 100 H Urine Glucose (UA) 500 or greater Urine Ketones 80 or greater H Urine Occult Blood Negative Urine Nitrate Negative Urine Bilirubin Negative Urine Urobilinogen Less than 2 Ur Leukocyte Esterase Negative Urine RBC 2 Urine WBC 1 Micro UA Comment Culture not ind Ur Microscopic Review Not Reportable Urine Culture Comments Culture not ind 06/18/18 06/19/18 06/19/18 23:13 04:16 04:16 WBC 18.7 H RBC 4.31 L Hgb 12.0 L Hct 36.8 L MCV 85.3 MCH 27.7 MCHC 32.5 RDW 16.7 Plt Count 700 H MPV 8.0 Prelim Diff (Auto) Neut % (Auto) 87.2 H Lymph % (Auto) 6.6 L [place] % (Auto) 6.0 Eos % (Auto) 0.0 Baso % (Auto) 0.2 Neut # (Auto) 16.3 H Lymph # (Auto) 1.2 [place] # (Auto) 1.1 H Eos # (Auto) 0.0 Baso # (Auto) 0.0 WBC Differential . Seg Neuts % (Manual) Band Neuts % (Manual) Lymphocytes % (Manual) Monocytes % (Manual) Basophils % (Manual) Abs Neuts (Manual) Differential Comment Auto diff final Toxic Granulation Platelet Estimate Platelet Morphology Puncture Site Patient Temperature O2 Saturation ABG pH ABG pCO2 ABG pO2 ABG HCO3 ABG O2 Content ABG Base Excess ABG Methemoglobin Yasmany Test Hemoglobin Carboxyhemoglobin O2 Delivery Device Inspired O2 Critical Value Sodium 133 L Potassium 4.5 Chloride 95 L Carbon Dioxide 15.3 L Anion Gap 23 H BUN 20 H Creatinine 1.52 H Estimated GFR 50 L POC Glucose 377 H Random Glucose 386 H Calcium 8.9 Magnesium Total Bilirubin AST ALT Alkaline Phosphatase Total Protein Albumin Lipase Beta-Hydroxybutyric Acd Urine Color Urine Clarity Urine pH Ur Specific [place] Urine Protein Urine Glucose (UA) Urine Ketones Urine Occult Blood Urine Nitrate Urine Bilirubin Urine Urobilinogen Ur Leukocyte Esterase Urine RBC Urine WBC Micro UA Comment Ur Microscopic Review Urine Culture Comments 06/19/18 08:04 WBC RBC Hgb Hct MCV MCH MCHC RDW Plt Count MPV Prelim Diff (Auto) Neut % (Auto) Lymph % (Auto) [place] % (Auto) Eos % (Auto) Baso % (Auto) Neut # (Auto) Lymph # (Auto) [place] # (Auto) Eos # (Auto) Baso # (Auto) WBC Differential Seg Neuts % (Manual) Band Neuts % (Manual) Lymphocytes % (Manual) Monocytes % (Manual) Basophils % (Manual) Abs Neuts (Manual) Differential Comment Toxic Granulation Platelet Estimate Platelet Morphology Puncture Site Patient Temperature O2 Saturation ABG pH ABG pCO2 ABG pO2 ABG HCO3 ABG O2 Content ABG Base Excess ABG Methemoglobin Yasmany Test Hemoglobin Carboxyhemoglobin O2 Delivery Device Inspired O2 Critical Value Sodium Potassium Chloride Carbon Dioxide Anion Gap BUN Creatinine Estimated GFR POC Glucose 456 H* Random Glucose Calcium Magnesium Total Bilirubin AST ALT Alkaline Phosphatase Total Protein Albumin Lipase Beta-Hydroxybutyric Acd Urine Color Urine Clarity Urine pH Ur Specific [place] Urine Protein Urine Glucose (UA) Urine Ketones Urine Occult Blood Urine Nitrate Urine Bilirubin Urine Urobilinogen Ur Leukocyte Esterase Urine RBC Urine WBC Micro UA Comment Ur Microscopic Review Urine Culture Comments - Imaging Impressions Abdomen/Pelvis CT 06/18/18 10:25 CONCLUSION: 1. There are no findings to indicate a bowel obstruction. No free air free fluid is identified. 2. There is slight prominence of the base of the appendix measuring 7 mm. This is at the upper limits of normal in size. No definite inflammatory changes are seen. This should be correlated with patient's clinical examination. 3. Mildly enlarged nodes in the inferior aspect of the left inguinal canal the largest node measures 1.5 x 2.4 cm. Venous Doppler Study 06/19/18 00:00 CONCLUSION: 1. No evidence of deep venous thrombosis within the left lower extremity. 2. Subcutaneous fluid collection within the anterior proximal-mid calf area in the region of the recent surgery which measures 16.5 x 1.2 x 5.1 cm. 3. Prominent left inguinal lymph node measuring 4.3 x 0.7 x 2.5 cm Assessment and Plan - Plan 48yo male with type 1 diabetes, gastroparesis, GERD, recent admission and surgical intervention for cellulitis/myositis/fasciitis of the left lower extremity admitted with nausea, vomiting and abdominal pain DKA: Type 1 diabetic. Secondary to persistent nausea, vomiting and stress from recent surgery - Transfer to ICU and treat per DKA protocol - NPO - IVF N/V, abdominal pain CT the abdomen and pelvis shows slight prominence of the base of the appendix measuring 7 mm Possibly due to diabetic associated gastroparesis -General surgery following, appreciate assistance/recommendations - No plans for surgical intervention. Cont to monitor -IV antiemetics as needed -Trial of IV Reglan Leukocytosis -Patient is afebrile. He does not appear septic. -continue on antibiotics per ID -Repeat CBC in a.m. Cellulitis/myositis/fasciitis left lower extremity, status post I&D -Continue IV Oxacillin per ID LLE edema suspect secondary to recent infection surgical intervention -Doppler revealed subcutaneous fluid collection at the site of surgery. No DVT. -General surgery to follow. Will discuss with them. On exam wound looks clean. DVT prophylaxis -Start Heparin Code Status: Full Discharge Planning: Transfer to ICU for insulin drip. Admit as inpatient.
[2018-06-19] MEDS: Sod Chloride 0.9% Inj 1,000 ML IV.CONT SCH ×2 (10:55→15:23)
[2018-06-19] MEDS: Dextrose 5%/NaCl 0.9% Inj 1,000 ML IV.CONT SCH ×2 (10:55→15:06)
[2018-06-19] MEDS: Heparin - SQ 10,000 UNITS/ML Vial SQ SCH ×2 (10:57→22:04)
[2018-06-19] MEDS: Pantoprazole Inj 40 MG Vial IV.PUSH SCH ×2 (10:57→22:05)
[2018-06-19] MEDS ORDERED: Insulin Regular (For Infusion) 100 UNIT in Sodium Chlor 0.9% Inj 99 ML IV.CONT PRN (11:00)
--- NOTE | 2018-06-19 16:34 | P.PNGS ---
Subjective Interval history: DAILY PROGRESS NOTE FOR SURGICAL ATTENDING, DR. RADHA FIGUEROA Resting in bed No issues No abdominal pain Now in [facility] for insulin drip Physical Exam Vital signs: Vital Signs 06/18/18 20:00 06/19/18 00:00 06/19/18 04:00 Temperature 98.2 F 97.9 F Pulse Rate 72 82 86 Respiratory Rate 20 18 22 Blood Pressure 142/74 H 174/58 H 132/72 Pulse Oximetry 98 06/19/18 07:45 06/19/18 08:00 06/19/18 11:42 Temperature 97.4 F L Pulse Rate 100 H 104 H Respiratory Rate 16 32 H Blood Pressure 158/76 H Pulse Oximetry 92 L 99 98 06/19/18 11:46 06/19/18 12:00 06/19/18 15:18 Temperature 98.2 F Pulse Rate 100 H 96 H Respiratory Rate 21 Blood Pressure 169/89 H Pulse Oximetry 96 95 Intake & Output 06/18/18 06/19/18 06/19/18 18:59 06:59 18:59 Intake Total 1100 / 1100 1300 / 1300 1200 / 1200 Output Total 800 / 800 Balance 300 / 300 1300 / 1300 1200 / 1200 Weight 92.986 kg Intake: IV 1100 / 1100 1300 / 1300 1200 / 1200 NS Inj 1,000 ML @ 250 mls/hr IV 1000 / 1000 1000 / 1000 .CONT .Q4H [facility] Rx#:[id number] Prostaphlin Inj 2 GM In NS Inj 300 / 300 200 / 200 100 ML @ 200 mls/hr IV.SIG Q4H [facility] Rx#:[id number] Zosyn 4.5 GM Premix 4.5 gm In 100 / 100 100 ml @ 200 mls/hr IV.SIG ONCE ONE Rx#:[id number] NS Inj 1,000 ML @ Wide Open IV. 1000 / 1000 SIG BOLUS ONE Rx#:[id number] Output: Urine 800 / 800 Other: Date of Last Bowel Movement 06/18/18 06/18/18 # Emeses 4 Weight On Admission 92.986 kg Narrative: Alert and awake Abd: Soft non tender non distended Results - Labs 06/19/18 04:16 06/19/18 04:16 Laboratory Results - last 24 hr 06/18/18 06/18/18 06/18/18 10:40 18:12 23:13 WBC RBC Hgb Hct MCV MCH MCHC RDW Plt Count MPV Neut % (Auto) Lymph % (Auto) [place] % (Auto) Eos % (Auto) Baso % (Auto) Neut # (Auto) Lymph # (Auto) [place] # (Auto) Eos # (Auto) Baso # (Auto) WBC Differential Differential Comment Sodium Potassium Chloride Carbon Dioxide Anion Gap BUN Creatinine Estimated GFR POC Glucose 380 H 377 H Random Glucose Calcium Beta-Hydroxybutyric Acd 6.70 H Nasal Screen MRSA (PCR) 06/19/18 06/19/18 06/19/18 04:16 04:16 08:04 WBC 18.7 H RBC 4.31 L Hgb 12.0 L Hct 36.8 L MCV 85.3 MCH 27.7 MCHC 32.5 RDW 16.7 Plt Count 700 H MPV 8.0 Neut % (Auto) 87.2 H Lymph % (Auto) 6.6 L [place] % (Auto) 6.0 Eos % (Auto) 0.0 Baso % (Auto) 0.2 Neut # (Auto) 16.3 H Lymph # (Auto) 1.2 [place] # (Auto) 1.1 H Eos # (Auto) 0.0 Baso # (Auto) 0.0 WBC Differential . Differential Comment Auto diff final Sodium 133 L Potassium 4.5 Chloride 95 L Carbon Dioxide 15.3 L Anion Gap 23 H BUN 20 H Creatinine 1.52 H Estimated GFR 50 L POC Glucose 456 H* Random Glucose 386 H Calcium 8.9 Beta-Hydroxybutyric Acd Nasal Screen MRSA (PCR) 06/19/18 06/19/18 06/19/18 10:07 10:45 10:52 WBC RBC Hgb Hct MCV MCH MCHC RDW Plt Count MPV Neut % (Auto) Lymph % (Auto) [place] % (Auto) Eos % (Auto) Baso % (Auto) Neut # (Auto) Lymph # (Auto) [place] # (Auto) Eos # (Auto) Baso # (Auto) WBC Differential Differential Comment Sodium Potassium Chloride Carbon Dioxide Anion Gap BUN Creatinine Estimated GFR POC Glucose 446 H 466 H* Random Glucose Calcium Beta-Hydroxybutyric Acd Nasal Screen MRSA (PCR) Not detected 06/19/18 06/19/18 06/19/18 11:56 13:03 14:06 WBC RBC Hgb Hct MCV MCH MCHC RDW Plt Count MPV Neut % (Auto) Lymph % (Auto) [place] % (Auto) Eos % (Auto) Baso % (Auto) Neut # (Auto) Lymph # (Auto) [place] # (Auto) Eos # (Auto) Baso # (Auto) WBC Differential Differential Comment Sodium Potassium Chloride Carbon Dioxide Anion Gap BUN Creatinine Estimated GFR POC Glucose 413 H 352 H 288 H Random Glucose Calcium Beta-Hydroxybutyric Acd Nasal Screen MRSA (PCR) 06/19/18 06/19/18 15:03 15:58 WBC RBC Hgb Hct MCV MCH MCHC RDW Plt Count MPV Neut % (Auto) Lymph % (Auto) [place] % (Auto) Eos % (Auto) Baso % (Auto) Neut # (Auto) Lymph # (Auto) [place] # (Auto) Eos # (Auto) Baso # (Auto) WBC Differential Differential Comment Sodium Potassium Chloride Carbon Dioxide Anion Gap BUN Creatinine Estimated GFR POC Glucose 254 H 317 H Random Glucose Calcium Beta-Hydroxybutyric Acd Nasal Screen MRSA (PCR) - Imaging Imaging: ITS Impressions Abdomen/Pelvis CT 06/18/18 10:25 CONCLUSION: 1. There are no findings to indicate a bowel obstruction. No free air free fluid is identified. 2. There is slight prominence of the base of the appendix measuring 7 mm. This is at the upper limits of normal in size. No definite inflammatory changes are seen. This should be correlated with patient's clinical examination. 3. Mildly enlarged nodes in the inferior aspect of the left inguinal canal the largest node measures 1.5 x 2.4 cm. Venous Doppler Study 06/19/18 00:00 CONCLUSION: 1. No evidence of deep venous thrombosis within the left lower extremity. 2. Subcutaneous fluid collection within the anterior proximal-mid calf area in the region of the recent surgery which measures 16.5 x 1.2 x 5.1 cm. 3. Prominent left inguinal lymph node measuring 4.3 x 0.7 x 2.5 cm Assessment and Plan - Assessment (1) Nausea & vomiting Code(s): R11.2 - Nausea with vomiting, unspecified Status: Acute Plan: 48 year old male with DM type 1; nausea/vomiting; recently drainage of LEFT leg infection -Examine not c/w appendicitis -ID following -Reglan added for nausea/vomiting---likely related to gastroparesis -Diet per primary team -GS will sign off; please call if any questions - Attending Attestation NOTE FOR SURGICAL ATTENDING, DR. RADHA FIGUEROA Patient has no abdominal pain Says he feels better I agree with above assessment and plan. The exam, history, and the medical decision-making described in the above note were completed with the assistance of the mid-level provider. I reviewed and agree with the findings presented. I attest that I had a [id number] encounter with the patient on the same day, and personally performed and documented my assessment and findings in the medical record. The following services were provided during this hospital visit: Chart data review, vital sign assessments/reviewing monitor data Review of consultations notes if present. Medication orders/review and/or management Ordering and/or reviewing lab tests Ordering and/or interpreting/reviewing x-rays and/or diagnostic studies Care of the patient and discussion of the patient with the care team Documentation time To help prompt me to consider important information that might be impacting today's encounter and assessment, Information from prior notes written by myself or my colleagues may have been "brought forward/copy and pasted" into today's note.
[2018-06-19 18:51] LABS: Calcium 8.4 mg/dL (8.5-10.1); Carbon Dioxide 24.3 meq/L (21.0-32.0); Potassium 3.3 meq/L (3.5-5.1)
[2018-06-19] MEDS ORDERED: DC previous DKA orders (HMC 1917) OTHER ONE (19:12)
[2018-06-19] MEDS ORDERED: DC Insulin drip 2 hrs post basal insulin dose OTHER ONE (19:12)
[2018-06-19] MEDS ORDERED: Dextrose 50% in Water 50 ML Vial IV.PUSH PRN (19:12)
[2018-06-19] MEDS ORDERED: Sodium Chloride 0.45 % Inj 1,000 ML IV.CONT SCH (19:18)
[2018-06-19] MEDS ORDERED: Insulin Detemir Inj 1,000 UNIT/10 ML Vial SQ ONE (21:33)
[2018-06-20 00:24] LABS: Carbon Dioxide 19.7 meq/L (21.0-32.0); Potassium 3.5 meq/L (3.5-5.1)
[2018-06-20] MEDS: Insulin NovoLOG Aspart Correctional Sugar Inj SQ SCH ×3 (03:02→11:53)
[2018-06-20] MEDS ORDERED: Chlorhexidine Gluconate 2% 1 Pack (2 Cloths) TOPICAL SCH (04:00)
[2018-06-20] MEDS ORDERED: Chlorhexidine Gluconate 2% 1 Pack (2 Cloths) TOPICAL PRN (04:00)
[2018-06-20 04:26] VITALS: RESP 24; TEMP 97.9
[2018-06-20 07:58] LABS: Baso # (Auto) 0.1 th/mm3 (0.0-0.2); Baso % (Auto) 0.5 % (0.0-2.0); Eos % (Auto) 0.2 % (0.0-4.0); Hematocrit 34.2 % (39.0-51.0); Hemoglobin 11.2 gm/dL (13.0-17.0); Lymph % (Auto) 10.9 % (9.0-44.0); Mean Corpuscular HGB Conc 32.7 % (32.0-36.0); Mean Corpuscular Hemoglobin 27.7 pg (27.0-34.0); Mean Corpuscular Volume 84.6 fL (80.0-100.0); Mono # (Auto) 1.2 th/mm3 (0.0-0.9); Mono % (Auto) 6.2 % (0.0-8.0); Neut # (Auto) 15.3 th/mm3 (1.8-7.7); Neut % (Auto) 82.2 % (16.0-70.0); Platelet Count 648 th/mm3 (150-450); Red Blood Count 4.05 mil/mm3 (4.50-5.90); Red Cell Distribution Width 16.6 % (11.6-17.2); White Blood Count 18.6 th/mm3 (4.0-11.0)
[2018-06-20] MEDS ORDERED: Insulin Aspart Prot 70/30 1,000 UNITS/10 ML Vial SQ SCH (08:00)
[2018-06-20 08:23] LABS: Calcium 8.7 mg/dL (8.5-10.1); Carbon Dioxide 21.5 meq/L (21.0-32.0); Potassium 3.8 meq/L (3.5-5.1)
[2018-06-20] MEDS: Sod Chloride 0.9% Inj 1,000 ML IV.CONT SCH ×2 (08:31)
[2018-06-20] MEDS: Heparin - SQ 10,000 UNITS/ML Vial SQ SCH (09:15)
[2018-06-20] MEDS: Loratadine 10 MG Tablet PO SCH (09:16)
[2018-06-20] MEDS: Pantoprazole Inj 40 MG Vial IV.PUSH SCH (10:03)
[2018-06-20 11:34] VITALS: BP 187/96; PULSE 75; O2SAT 99
--- NOTE | 2018-06-20 12:12 | P.PN ---
Subjective Interval history: Follow-up DKA/left lower extremity [id number] June 20, 2018-patient seen and examined, denies any nausea or vomiting. Currently afebrile. BP labile. Physical Exam Vital signs: Vital Signs 06/19/18 13:00 06/19/18 14:00 06/19/18 15:00 Temperature Pulse Rate 91 H 95 H 96 H Respiratory Rate 28 H 13 25 H Blood Pressure 140/77 127/66 141/70 H Pulse Oximetry 97 95 93 L 06/19/18 15:18 06/19/18 16:00 06/19/18 17:00 Temperature 98.4 F Pulse Rate 97 H 90 Respiratory Rate 25 H 24 Blood Pressure 144/68 H 127/58 L Pulse Oximetry 95 93 L 92 L 06/19/18 18:00 06/19/18 18:58 06/19/18 19:00 Temperature Pulse Rate 87 91 H 92 H Respiratory Rate 23 28 H 17 Blood Pressure 142/69 H 130/78 139/78 Pulse Oximetry 94 L 95 96 06/19/18 19:55 06/19/18 20:00 06/19/18 21:00 Temperature 98.2 F Pulse Rate 85 92 H Respiratory Rate 22 24 Blood Pressure 125/68 163/90 H Pulse Oximetry 93 L 93 L 95 06/19/18 22:00 06/19/18 23:00 06/19/18 23:03 Temperature Pulse Rate 91 H 92 H 88 Respiratory Rate 21 22 21 Blood Pressure 138/75 162/77 H 153/77 H Pulse Oximetry 95 90 L 90 L 06/20/18 00:00 06/20/18 01:00 06/20/18 02:00 Temperature 98.5 F Pulse Rate 78 81 85 Respiratory Rate 21 19 21 Blood Pressure 138/75 163/79 H 157/80 H Pulse Oximetry 94 L 94 L 92 L 06/20/18 03:00 06/20/18 03:01 06/20/18 04:00 Temperature 97.9 F Pulse Rate 85 84 79 Respiratory Rate 27 H 22 24 Blood Pressure 187/94 H 166/83 H Pulse Oximetry 96 97 96 06/20/18 05:00 06/20/18 06:00 06/20/18 07:00 Temperature Pulse Rate 76 78 84 Respiratory Rate 20 20 23 Blood Pressure 162/79 H 166/84 H 159/77 H Pulse Oximetry 95 93 L 96 06/20/18 07:48 06/20/18 08:00 06/20/18 09:00 Temperature Pulse Rate 82 80 Respiratory Rate 40 H 25 H Blood Pressure 173/92 H 194/89 H Pulse Oximetry 98 97 98 06/20/18 09:13 06/20/18 10:00 06/20/18 10:15 Temperature Pulse Rate 82 79 77 Respiratory Rate 25 H 21 17 Blood Pressure 176/89 H 192/95 H 209/100 H Pulse Oximetry 98 98 98 06/20/18 10:24 06/20/18 11:00 06/20/18 11:17 Temperature Pulse Rate 79 76 75 Respiratory Rate 23 20 24 Blood Pressure 177/98 H 186/91 H 187/96 H Pulse Oximetry 98 99 99 Intake & Output 06/19/18 06/20/18 06/20/18 18:59 06:59 18:59 Intake Total 1300 / 1300 1038 / 1038 3200 / 3200 Output Total 1800 / 1800 1200 / 1200 Balance -500 / -500 -162 / -162 3200 / 3200 Weight 95 kg Intake: IV 1300 / 1300 318 / 318 3200 / 3200 NovoLIN R (IV Infusion) 100 UNIT In NS Inj 99 ML @ 9 UNITS/ HR 9 mls/hr IV.CONT TITRATE PRN Rx#:[id number] NS Inj 1,000 ML @ 250 mls/hr IV 1000 / 1000 .CONT .Q4H [facility] Rx#:[id number] 1/2 Normal Saline Inj 1,000 ML 1000 / 1000 @ 100 mls/hr IV.CONT .Q10H [facility] Rx#:[id number] Prostaphlin Inj 2 GM In NS Inj 300 / 300 300 / 300 200 / 200 100 ML @ 200 mls/hr IV.SIG Q4H [facility] Rx#:[id number] Oral 720 / 720 Output: Urine 1800 / 1800 1200 / 1200 Other: # Voids 1 Date of Last Bowel Movement 06/18/18 06/18/18 06/18/18 Narrative: GENERAL: NAD SKIN: Warm and dry. HEAD: Normocephalic. EYES: No scleral icterus. No injection or drainage. NECK: Supple, trachea midline. No JVD or lymphadenopathy. CARDIOVASCULAR: Regular rate and rhythm without murmurs, gallops, or rubs. RESPIRATORY: Breath sounds equal bilaterally. No accessory muscle use. GASTROINTESTINAL: Abdomen soft, non-tender, nondistended. MUSCULOSKELETAL: No cyanosis, or edema. dorene to LLE wound, clean. size LLE> RLE BACK: Nontender without obvious deformity. No CVA tenderness. Results - Labs CBC & Chem 7: 06/20/18 06:28 06/20/18 06:28 Laboratory Results - last 24 hr 06/19/18 06/19/18 06/19/18 10:45 11:56 13:03 WBC RBC Hgb Hct MCV MCH MCHC RDW Plt Count MPV Neut % (Auto) Lymph % (Auto) [place] % (Auto) Eos % (Auto) Baso % (Auto) Neut # (Auto) Lymph # (Auto) [place] # (Auto) Eos # (Auto) Baso # (Auto) WBC Differential Differential Comment Sodium Potassium Chloride Carbon Dioxide Anion Gap BUN Creatinine Estimated GFR POC Glucose 413 H 352 H Random Glucose Calcium Nasal Screen MRSA (PCR) Not detected 06/19/18 06/19/18 06/19/18 14:06 15:03 15:58 WBC RBC Hgb Hct MCV MCH MCHC RDW Plt Count MPV Neut % (Auto) Lymph % (Auto) [place] % (Auto) Eos % (Auto) Baso % (Auto) Neut # (Auto) Lymph # (Auto) [place] # (Auto) Eos # (Auto) Baso # (Auto) WBC Differential Differential Comment Sodium Potassium Chloride Carbon Dioxide Anion Gap BUN Creatinine Estimated GFR POC Glucose 288 H 254 H 317 H Random Glucose Calcium Nasal Screen MRSA (PCR) 06/19/18 06/19/18 06/19/18 17:05 17:57 18:22 WBC RBC Hgb Hct MCV MCH MCHC RDW Plt Count MPV Neut % (Auto) Lymph % (Auto) [place] % (Auto) Eos % (Auto) Baso % (Auto) Neut # (Auto) Lymph # (Auto) [place] # (Auto) Eos # (Auto) Baso # (Auto) WBC Differential Differential Comment Sodium 138 Potassium 3.3 L D Chloride 104 D Carbon Dioxide 24.3 D Anion Gap 10 BUN 19 H Creatinine 1.30 Estimated GFR 59 L POC Glucose 191 H 151 H Random Glucose 130 H D Calcium 8.4 L Nasal Screen MRSA (PCR) 06/19/18 06/19/18 06/19/18 18:55 19:37 20:32 WBC RBC Hgb Hct MCV MCH MCHC RDW Plt Count MPV Neut % (Auto) Lymph % (Auto) [place] % (Auto) Eos % (Auto) Baso % (Auto) Neut # (Auto) Lymph # (Auto) [place] # (Auto) Eos # (Auto) Baso # (Auto) WBC Differential Differential Comment Sodium Potassium Chloride Carbon Dioxide Anion Gap BUN Creatinine Estimated GFR POC Glucose 92 77 111 H Random Glucose Calcium Nasal Screen MRSA (PCR) 06/19/18 06/19/18 06/19/18 21:20 22:37 23:05 WBC RBC Hgb Hct MCV MCH MCHC RDW Plt Count MPV Neut % (Auto) Lymph % (Auto) [place] % (Auto) Eos % (Auto) Baso % (Auto) Neut # (Auto) Lymph # (Auto) [place] # (Auto) Eos # (Auto) Baso # (Auto) WBC Differential Differential Comment Sodium 136 Potassium 3.5 Chloride 101 Carbon Dioxide 19.7 L Anion Gap 15 BUN 18 Creatinine 1.21 Estimated GFR 65 L POC Glucose 141 H 207 H Random Glucose 204 H Calcium 8.0 L Nasal Screen MRSA (PCR) 06/19/18 06/20/18 06/20/18 23:41 02:53 06:28 WBC RBC Hgb Hct MCV MCH MCHC RDW Plt Count MPV Neut % (Auto) Lymph % (Auto) [place] % (Auto) Eos % (Auto) Baso % (Auto) Neut # (Auto) Lymph # (Auto) [place] # (Auto) Eos # (Auto) Baso # (Auto) WBC Differential Differential Comment Sodium 134 L Potassium 3.8 Chloride 98 Carbon Dioxide 21.5 Anion Gap 15 BUN 14 Creatinine 1.14 Estimated GFR 69 L POC Glucose 186 H 169 H Random Glucose 177 H Calcium 8.7 Nasal Screen MRSA (PCR) 06/20/18 06/20/18 06:28 11:48 WBC 18.6 H RBC 4.05 L Hgb 11.2 L Hct 34.2 L MCV 84.6 MCH 27.7 MCHC 32.7 RDW 16.6 Plt Count 648 H MPV 8.0 Neut % (Auto) 82.2 H Lymph % (Auto) 10.9 [place] % (Auto) 6.2 Eos % (Auto) 0.2 Baso % (Auto) 0.5 Neut # (Auto) 15.3 H Lymph # (Auto) 2.0 [place] # (Auto) 1.2 H Eos # (Auto) 0.0 Baso # (Auto) 0.1 WBC Differential . Differential Comment Auto diff final Sodium Potassium Chloride Carbon Dioxide Anion Gap BUN Creatinine Estimated GFR POC Glucose 297 H Random Glucose Calcium Nasal Screen MRSA (PCR) Assessment and Plan - Plan 48-year-old male with DKA: Type 1 diabetic. -Resolved post treatment with Insulin drip, IVF hydration per protocol Type 1 DM -Continue with home medications N/V, abdominal pain CT the abdomen and pelvis shows slight prominence of the base of the appendix measuring 7 mm Possibly due to diabetic associated gastroparesis -General surgery following, appreciate assistance/recommendations -No plans for surgical intervention. Cont to monitor -IV antiemetics as needed -Trial of IV Reglan; will switch to PO Reglan Leukocytosis -Patient is afebrile. He does not appear septic. -continue on antibiotics per ID -Repeat CBC in a.m. Cellulitis/myositis/fasciitis left lower extremity, status post I&D -Continue IV Oxacillin per ID; will switch to PO Keflex 500mg QId until 06/26/18 LLE edema suspect secondary to recent infection surgical intervention -Doppler revealed subcutaneous fluid collection at the site of surgery. No DVT. -General surgery to follow. Elevated BP -Start clonidine PRN DVT prophylaxis - Heparin
--- NOTE | 2018-06-20 12:14 | P.DS ---
Date of admission: 06/19/18 10:06 Primary care physician: Jeffy Little MD Brief History from admission: This is a 48-year-old male with a past medical history significant for type 1 diabetes mellitus, gastroparesis and GERD who was admitted to [facility] between 06/12/18 and 06/15/18 with cellulitis, myositis and fasciitis of the left lower extremity. Patient underwent I&D during that admission with operative cultures positive for MSSA. Patient was seen in consultation by infectious disease and was treated with IV oxacillin and discharged with oral Dicloxacillin 500mg po QID to complete for 14 days. Today, patient presented to [facility] ED with complaints of severe left upper quadrant pain. Patient states the pain started around 5:00 this morning. He denies any associated nausea or vomiting at that time. Patient states he actually was trying to induce vomiting because he felt that that would help alleviate his abdominal pain. Patient states that he has had abdominal pain with DKA in the past and that this was different. Once patient came to the ED, he vomited multiple times resulting in resolution of his abdominal pain. At the time that I evaluate the patient, he denies any complaints of nausea vomiting or abdominal pain. He says he believes that the abdominal pain as a result of him being abruptly stopped on his 600 mg Lyrica medication. Patient states he had been constipated due to [place] use but he had a bowel movement yesterday. In the ED, CT of abdomen pelvis was obtained which showed a mildly enlarged appendix. Patient was noted to have elevated white count. He was also noted to have elevated blood sugar of 327. Patient is acidotic with bicarb level of 20 and has an anion gap of 21. General surgery has already evaluated the patient and he is currently n.p.o. for possible surgical intervention. After examining the patient and exiting the room, patient begins to vomit multiple times. DS: Medications - Discharge Medications Prescriptions: cephalexin [Keflex] 500 mg PO QID #28 cap clonidine HCl 0.1 mg PO TID PRN #30 tab PRN Reason: Blood Pressure Lactobacillus acidoph-L.bulgar [Lactinex] 1 tab PO TID #90 tab metoclopramide HCl [Reglan] 5 mg PO TID #90 tab DS: Summary Hospital Course: While in the hospital, patient was treated for: KA: Type 1 diabetic. -Resolved post treatment with Insulin drip, IVF hydration per protocol Type 1 DM -Treated with home medications N/V, abdominal pain-Resolved CT the abdomen and pelvis shows slight prominence of the base of the appendix measuring 7 mm Possibly due to diabetic associated gastroparesis -General surgery was consulted -No plans for surgical intervention. -IV antiemetics as needed -Trial of IV Reglan; will switch to PO Reglan Cellulitis/myositis/fasciitis left lower extremity, status post I&D -Treated with IV Oxacillin per ID; will switch to PO Keflex 500mg QId until LLE edema suspect secondary to recent infection surgical intervention -Doppler revealed subcutaneous fluid collection at the site of surgery. No DVT. -General surgery to follow. - Time Spent with Patient Total time spent providing and/or coordinating discharge services: Greater than 30 minutes - Quality: VTE Deep Vein Thrombosis/Pulmonary Embolism Present on Admission: No Exam Vital signs: Vital Signs 06/19/18 13:00 06/19/18 14:00 06/19/18 15:00 Temperature Pulse Rate 91 H 95 H 96 H Respiratory Rate 28 H 13 25 H Blood Pressure 140/77 127/66 141/70 H Pulse Oximetry 97 95 93 L 06/19/18 15:18 06/19/18 16:00 06/19/18 17:00 Temperature 98.4 F Pulse Rate 97 H 90 Respiratory Rate 25 H 24 Blood Pressure 144/68 H 127/58 L Pulse Oximetry 95 93 L 92 L 06/19/18 18:00 06/19/18 18:58 06/19/18 19:00 Temperature Pulse Rate 87 91 H 92 H Respiratory Rate 23 28 H 17 Blood Pressure 142/69 H 130/78 139/78 Pulse Oximetry 94 L 95 96 06/19/18 19:55 06/19/18 20:00 06/19/18 21:00 Temperature 98.2 F Pulse Rate 85 92 H Respiratory Rate 22 24 Blood Pressure 125/68 163/90 H Pulse Oximetry 93 L 93 L 95 06/19/18 22:00 06/19/18 23:00 06/19/18 23:03 Temperature Pulse Rate 91 H 92 H 88 Respiratory Rate 21 22 21 Blood Pressure 138/75 162/77 H 153/77 H Pulse Oximetry 95 90 L 90 L 06/20/18 00:00 06/20/18 01:00 06/20/18 02:00 Temperature 98.5 F Pulse Rate 78 81 85 Respiratory Rate 21 19 21 Blood Pressure 138/75 163/79 H 157/80 H Pulse Oximetry 94 L 94 L 92 L 06/20/18 03:00 06/20/18 03:01 06/20/18 04:00 Temperature 97.9 F Pulse Rate 85 84 79 Respiratory Rate 27 H 22 24 Blood Pressure 187/94 H 166/83 H Pulse Oximetry 96 97 96 06/20/18 05:00 06/20/18 06:00 06/20/18 07:00 Temperature Pulse Rate 76 78 84 Respiratory Rate 20 20 23 Blood Pressure 162/79 H 166/84 H 159/77 H Pulse Oximetry 95 93 L 96 06/20/18 07:48 06/20/18 08:00 06/20/18 09:00 Temperature Pulse Rate 82 80 Respiratory Rate 40 H 25 H Blood Pressure 173/92 H 194/89 H Pulse Oximetry 98 97 98 06/20/18 09:13 06/20/18 10:00 06/20/18 10:15 Temperature Pulse Rate 82 79 77 Respiratory Rate 25 H 21 17 Blood Pressure 176/89 H 192/95 H 209/100 H Pulse Oximetry 98 98 98 06/20/18 10:24 06/20/18 11:00 06/20/18 11:17 Temperature Pulse Rate 79 76 75 Respiratory Rate 23 20 24 Blood Pressure 177/98 H 186/91 H 187/96 H Pulse Oximetry 98 99 99 Intake & Output 06/19/18 06/20/18 06/20/18 18:59 06:59 18:59 Intake Total 1300 / 1300 1038 / 1038 3200 / 3200 Output Total 1800 / 1800 1200 / 1200 Balance -500 / -500 -162 / -162 3200 / 3200 Weight 95 kg Intake: IV 1300 / 1300 318 / 318 3200 / 3200 NovoLIN R (IV Infusion) 100 UNIT In NS Inj 99 ML @ 9 UNITS/ HR 9 mls/hr IV.CONT TITRATE PRN Rx#:[id number] NS Inj 1,000 ML @ 250 mls/hr IV 1000 / 1000 .CONT .Q4H MEIR Rx#:[id number] 1/2 Normal Saline Inj 1,000 ML 1000 / 1000 @ 100 mls/hr IV.CONT .Q10H MEIR Rx#:[id number] Prostaphlin Inj 2 GM In NS Inj 300 / 300 300 / 300 200 / 200 100 ML @ 200 mls/hr IV.SIG Q4H MEIR Rx#:[id number] Oral 720 / 720 Output: Urine 1800 / 1800 1200 / 1200 Other: # Voids 1 Date of Last Bowel Movement 06/18/18 06/18/18 06/18/18 Narrative: GENERAL: NAD SKIN: Warm and dry. HEAD: Normocephalic. EYES: No scleral icterus. No injection or drainage. NECK: Supple, trachea midline. No JVD or lymphadenopathy. CARDIOVASCULAR: Regular rate and rhythm without murmurs, gallops, or rubs. RESPIRATORY: Breath sounds equal bilaterally. No accessory muscle use. GASTROINTESTINAL: Abdomen soft, non-tender, nondistended. MUSCULOSKELETAL: No cyanosis, or edema. dorene to LLE wound, clean. size LLE> RLE BACK: Nontender without obvious deformity. No CVA tenderness. Results Procedures completed during hospitalization: none Labs on day of discharge: Labs from last 24 hours 06/20/18 06/20/18 06/20/18 11:48 11:22 06:28 WBC 18.6 H RBC 4.05 L Hgb 11.2 L Hct 34.2 L MCV 84.6 MCH 27.7 MCHC 32.7 RDW 16.6 Plt Count 648 H MPV 8.0 Neut % (Auto) 82.2 H Lymph % (Auto) 10.9 Tyrrell % (Auto) 6.2 Eos % (Auto) 0.2 Baso % (Auto) 0.5 Neut # (Auto) 15.3 H Lymph # (Auto) 2.0 Tyrrell # (Auto) 1.2 H Eos # (Auto) 0.0 Baso # (Auto) 0.1 WBC Differential . Differential Comment Auto diff final Sodium Pending Potassium Pending Chloride Pending Carbon Dioxide Pending Anion Gap Pending BUN Pending Creatinine Pending Estimated GFR POC Glucose 297 H Random Glucose Pending Calcium Pending Nasal Screen MRSA (PCR) 06/20/18 06/20/18 06/19/18 06:28 02:53 23:41 WBC RBC Hgb Hct MCV MCH MCHC RDW Plt Count MPV Neut % (Auto) Lymph % (Auto) Tyrrell % (Auto) Eos % (Auto) Baso % (Auto) Neut # (Auto) Lymph # (Auto) Tyrrell # (Auto) Eos # (Auto) Baso # (Auto) WBC Differential Differential Comment Sodium 134 L Potassium 3.8 Chloride 98 Carbon Dioxide 21.5 Anion Gap 15 BUN 14 Creatinine 1.14 Estimated GFR 69 L POC Glucose 169 H 186 H Random Glucose 177 H Calcium 8.7 Nasal Screen MRSA (PCR) 06/19/18 06/19/18 06/19/18 23:05 22:37 21:20 WBC RBC Hgb Hct MCV MCH MCHC RDW Plt Count MPV Neut % (Auto) Lymph % (Auto) Tyrrell % (Auto) Eos % (Auto) Baso % (Auto) Neut # (Auto) Lymph # (Auto) Tyrrell # (Auto) Eos # (Auto) Baso # (Auto) WBC Differential Differential Comment Sodium 136 Potassium 3.5 Chloride 101 Carbon Dioxide 19.7 L Anion Gap 15 BUN 18 Creatinine 1.21 Estimated GFR 65 L POC Glucose 207 H 141 H Random Glucose 204 H Calcium 8.0 L Nasal Screen MRSA (PCR) 06/19/18 06/19/18 06/19/18 20:32 19:37 18:55 WBC RBC Hgb Hct MCV MCH MCHC RDW Plt Count MPV Neut % (Auto) Lymph % (Auto) Tyrrell % (Auto) Eos % (Auto) Baso % (Auto) Neut # (Auto) Lymph # (Auto) Tyrrell # (Auto) Eos # (Auto) Baso # (Auto) WBC Differential Differential Comment Sodium Potassium Chloride Carbon Dioxide Anion Gap BUN Creatinine Estimated GFR POC Glucose 111 H 77 92 Random Glucose Calcium Nasal Screen MRSA (PCR) 06/19/18 06/19/18 06/19/18 18:22 17:57 17:05 WBC RBC Hgb Hct MCV MCH MCHC RDW Plt Count MPV Neut % (Auto) Lymph % (Auto) [place]rell % (Auto) Eos % (Auto) Baso % (Auto) Neut # (Auto) Lymph # (Auto) Tyrrell # (Auto) Eos # (Auto) Baso # (Auto) WBC Differential Differential Comment Sodium 138 Potassium 3.3 L D Chloride 104 D Carbon Dioxide 24.3 D Anion Gap 10 BUN 19 H Creatinine 1.30 Estimated GFR 59 L POC Glucose 151 H 191 H Random Glucose 130 H D Calcium 8.4 L Nasal Screen MRSA (PCR) 06/19/18 06/19/18 06/19/18 15:58 15:03 14:06 WBC RBC Hgb Hct MCV MCH MCHC RDW Plt Count MPV Neut % (Auto) Lymph % (Auto) [place] % (Auto) Eos % (Auto) Baso % (Auto) Neut # (Auto) Lymph # (Auto) Tyrrell # (Auto) Eos # (Auto) Baso # (Auto) WBC Differential Differential Comment Sodium Potassium Chloride Carbon Dioxide Anion Gap BUN Creatinine Estimated GFR POC Glucose 317 H 254 H 288 H Random Glucose Calcium Nasal Screen MRSA (PCR) 06/19/18 06/19/18 06/19/18 13:03 11:56 10:45 WBC RBC Hgb Hct MCV MCH MCHC RDW Plt Count MPV Neut % (Auto) Lymph % (Auto) [place] % (Auto) Eos % (Auto) Baso % (Auto) Neut # (Auto) Lymph # (Auto) [place] # (Auto) Eos # (Auto) Baso # (Auto) WBC Differential Differential Comment Sodium Potassium Chloride Carbon Dioxide Anion Gap BUN Creatinine Estimated GFR POC Glucose 352 H 413 H Random Glucose Calcium Nasal Screen MRSA (PCR) Not detected - Impressions ITS Impressions Abdomen/Pelvis CT 06/18/18 10:25 CONCLUSION: 1. There are no findings to indicate a bowel obstruction. No free air free fluid is identified. 2. There is slight prominence of the base of the appendix measuring 7 mm. This is at the upper limits of normal in size. No definite inflammatory changes are seen. This should be correlated with patient's clinical examination. 3. Mildly enlarged nodes in the inferior aspect of the left inguinal canal the largest node measures 1.5 x 2.4 cm. Venous Doppler Study 06/19/18 00:00 CONCLUSION: 1. No evidence of deep venous thrombosis within the left lower extremity. 2. Subcutaneous fluid collection within the anterior proximal-mid calf area in the region of the recent surgery which measures 16.5 x 1.2 x 5.1 cm. 3. Prominent left inguinal lymph node measuring 4.3 x 0.7 x 2.5 cm Discharge Plan - Discharge Disposition Patient Disposition: W/Home Health Service - Discharge Condition Condition: Good - Discharge Order Discharge Orders: Discharge Order (Routine); Ordered 06/20/18 Ordered By: Casper Seals - Physicians Team Primary Care Provider: Jeffy Little Attending Provider: Casper Seals Other Providers: Eugene Brandon MD ; Paula Khan MD
--- NOTE | 2018-06-20 12:17 | P.DCO ---
- Diagnosis (1) Abscess of left lower extremity Status: Acute (2) Abscess of left lower extremity Status: Acute - Physical Therapy Order: Evaluate and treat - Home Health Nursing Order: Signs/symptoms of disease process, Wound care and dressing changes - Case Management Consult Case Management Consult-Home Health: Yes - Certification I have seen patient Floyd Argueta III on 06/20/18. My clinical findings support the need for the requested home health care services because: Patient has SOB, Deconditioned with increased weakness I certify that my clinical findings support that this patient is homebound because: Poor cardiac reserve
[2018-06-20 12:25] LABS: Calcium 8.8 mg/dL (8.5-10.1); Carbon Dioxide 22.3 meq/L (21.0-32.0); Potassium 3.8 meq/L (3.5-5.1)
== END 2018-06-20 12:30 | disposition home health service (06) ==
LOC: NEDA 10:06 → NEPE 10:06 → NEPFCDU 13:37 → HIMC 06-19 10:25
PROVIDERS: ADMIT Hospitalist; ATTEND Hospitalist